=== PATIENT | male | born 1950 | race Caucasian/White ===

== ENCOUNTER 2023-11-26 11:05 | Outpatient (AMB) | payer MEDICARE, OTHER, SELFPAY ==
[2023-11-26 11:12] VITALS: BP 130/80; PULSE 81; O2SAT 98; BMI 35.1
--- NOTE | 2023-11-26 11:12 | HO.NEPHOV_ITS ---
HPI HPI Comments History of Present Illness Details I had the privilege of seeing Juliette in follow-up of her chronic kidney disease stage 3 and hypertension. She has history of colon cancer status post colectomy 20 years ago. She has history of chronic back and pain. She has been taking nonsteroidal anti-inflammatories for the pain. She denies any hematuria, urinary symptoms, nephrolithiasis. She is not known to have any significant proteinuria. She does not have any chest pain, shortness of breath, proximal nocturnal dyspnea, orthopnea or pedal edema. All other systems have been reviewed and were negative. [facility] Medical History (Updated 11/26/23 @ 11:24 by Thai Cadena MD) Sciatic pain Chronic back pain History of colon cancer Hyperlipemia Chronic kidney disease, stage 3a Hypertension Surgical History (Updated 11/26/23 @ 11:10 by Linda Canales MA) History of colectomy Family History (Updated 11/26/23 @ 11:21 by Linda Canales MA) Brother Cancer Father Cancer Social History (Updated 11/26/23 @ 11:20 by Linda Canales MA) Alcohol intake: current Patient Tobacco Use Status: Former Tobacco user Vital Signs 11/26/23 11:12 Height 5 ft 7 in Weight 224 lb 6 oz BMI 35.1 BP 130/80 Blood Pressure Location Lt brachial Position Sitting Pulse 81 Pulse Source Pulse Oximeter Pulse Oximetry (%) 98 Oxygen Delivery Method Room Air Physical Exam Vital Signs: Last Vital Signs Pulse 81 11/26/23 11:12 BP 130/80 11/26/23 11:12 Pulse Ox 98 11/26/23 11:12 Oxygen Delivery Method Room Air 11/26/23 11:12 BMI result Body Mass Index 35.1 Const General: comfortable and no acute distress Orientation/consciousness: patient oriented x3 HEENT Head: Yes normocephalic Mouth: Normal oral and palatal mucosa present Eyes EOM: EOMs intact bilaterally Neck Neck: Yes supple Resp Auscultation: clear to auscultation bilaterally Cardio Jugular venous distension: no JVD Rate: regular rate GI Palpation (GI): Soft to palpation Auscultation: normal bowel sounds General: Yes no CVA tenderness Back/Spine/Pelvis Back: no CVA tenderness Skin General skin exam: no rashes or lesions noted Neuro General: patient oriented x3 and moves all extremities Extrem General: Yes no pedal edema Assessment & Plan Assessment & Plan (1) Hypertension: Code(s): I10 - Essential (primary) hypertension Qualifiers: Hypertension type: primary hypertension Qualified Code(s): I10 - Essential (primary) hypertension (2) CKD (chronic kidney disease) stage 3, GFR 30-59 ml/min: Code(s): N18.30 - Chronic kidney disease, stage 3 unspecified Qualifiers: Chronic kidney disease stage 3 subtype: stage 3a (GFR 45-59) Qualified Code(s): N18.31 - Chronic kidney disease, stage 3a Briseida peck has CKD for some time. Her renal functions have been fairly stable. She had renal ultrasound the past which showed right kidney of 9.5 cm with a normal parenchyma. Her left kidney showed mildly increased cortical echoge nicity with normal thickness. She should maintain good hydration and minimize nonsteroidal anti-inflammatories. Her blood pressure is currently at goal. I did not make any medication changes today. Follow-up blood work ordered. All questions answered. Follow-up appointment given. Orders: Orders Blood Urea Nitrogen 11/26/23 I10 - Essential (primary) hypertension, N18.30 - Chronic kidney disease, stage 3 unspecified Creatinine 11/26/23 I10 - Essential (primary) hypertension, N18.30 - Chronic kidney disease, stage 3 unspecified Electrolytes 11/26/23 I10 - Essential (primary) hypertension, N18.30 - Chronic kidney disease, stage 3 unspecified Protein Creatinine Ratio, Ur 11/26/23 I10 - Essential (primary) hypertension, N18.30 - Chronic kidney disease, stage 3 unspecified Coding Level of Care Code Est Pt Level 3 (56710) Diagnoses Primary hypertension I10 Hypertension type: primary hypertension Stage 3a chronic kidney disease N18.31 Chronic kidney disease stage 3 subtype: stage 3a (GFR 45-59) Results Reviewed Nephrology Results: No Data to Display
== END 2023-11-26 11:48 | disposition home or self-care (01) ==
PROVIDERS: PCP Hospitalist; Visit Provider Internal Medicine Nephrology
DX: I10 Essential (primary) hypertension (principal); N18.31 Chronic kidney disease, stage 3a
CPT/HCPCS: 99213

== ENCOUNTER → 2023-11-26 11:05 | Outpatient (BNVA) | payer MEDICARE, SELFPAY | PROVIDERS: PCP Hospitalist; Visit Provider Internal Medicine Nephrology | DX: I12.9 Hypertensive chronic kidney disease with stage 1 through stage 4 chronic kidney disease, or unspecified chronic kidney disease (principal); N18.31 Chronic kidney disease, stage 3a | CPT/HCPCS: 99212 ==

== ENCOUNTER 2024-05-26 11:34 | Outpatient (AMB) | payer MEDICARE, OTHER, SELFPAY ==
--- NOTE | 2024-05-26 11:49 | HO.NEPHOV ---
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 She has history of colon cancer status post colectomy 20 years ago. She has history of chronic back and pain. She has been taking nonsteroidal anti-inflammatories for the pain. She denies any hematuria, urinary symptoms, nephrolithiasis. She is not known to have any significant proteinuria. She does not have any chest pain, shortness of breath, proximal nocturnal dyspnea, orthopnea or pedal edema. All other systems have been reviewed and were negative. [facility] Medical History (Updated 11/26/23 @ 11:24 by Thai Cadena MD) Sciatic pain Chronic back pain History of colon cancer Hyperlipemia Chronic kidney disease, stage 3a Hypertension Surgical History History of colectomy Family History Brother Cancer Father Cancer Social History Alcohol intake: current Patient Tobacco Use Status: Former Tobacco user Physical Exam Vital Signs: Last Vital Signs Pulse 77 05/26/24 11:51 BP 118/74 05/26/24 11:51 Pulse Ox 98 05/26/24 11:51 Oxygen Delivery Method Room Air 05/26/24 11:51 BMI result Body Mass Index 34.5 Const General: comfortable and no acute distress Orientation/consciousness: patient oriented x3 HEENT Head: Yes normocephalic Mouth: Normal oral and palatal mucosa present Eyes EOM: EOMs intact bilaterally Neck Neck: Yes supple Resp Auscultation: clear to auscultation bilaterally Cardio Jugular venous distension: no JVD Rate: regular rate GI Palpation (GI): Soft to palpation Auscultation: normal bowel sounds General: Yes no CVA tenderness Back/Spine/Pelvis Back: no CVA tenderness Skin General skin exam: no rashes or lesions noted Neuro General: patient oriented x3 and moves all extremities Extrem General: Yes no pedal edema Results Reviewed Nephrology Results: No Data to Display Assessment & Plan Assessment & Plan (1) CKD (chronic kidney disease) stage 3, GFR 30-59 ml/min: Code(s): N18.30 - Chronic kidney disease, stage 3 unspecified Category: Medical Qualifiers: Chronic kidney disease stage 3 subtype: stage 3a (GFR 45-59) Qualified Code(s): N18.31 - Chronic kidney disease, stage 3a (2) Hypertension: Code(s): I10 - Essential (primary) hypertension Category: Medical Qualifiers: Hypertension type: primary hypertension Qualified Code(s): I10 - Essential (primary) hypertension Plan Juliette peck has CKD for some time. Her renal functions have been fairly stable. She had renal ultrasound the past which showed right kidney of 9.5 cm with a normal parenchyma. Her left kidney showed mildly increased cortical echogenicity with normal thickness. She should maintain good hydration and minimize nonsteroidal anti-inflammatories. Her blood pressure is currently at goal with out ACEI. I may restart ACEI with time at a lower dose. I started her on HCTZ 12.5 mg to 25 mg as on a needed basis for ankle swelling. I did not make any other medication changes today. Follow-up blood work ordered. All questions answered. Follow-up appointment given. Orders: Orders Blood Urea Nitrogen Today I10 - Essential (primary) hypertension, N18.31 - Chronic kidney disease, stage 3a Creatinine Today I10 - Essential (primary) hypertension, N18.31 - Chronic kidney disease, stage 3a Electrolytes Today I10 - Essential (primary) hypertension, N18.31 - Chronic kidney disease, stage 3a Medications: New hydrochlorothiazide 25 mg (2 x 12.5 mg) PO DAILY 30 days 60 tabs 1RF Coding Level of Care Code Est Pt Level 4 (12928) Diagnoses Stage 3a chronic kidney disease N18.31 Chronic kidney disease stage 3 subtype: stage 3a (GFR 45-59) Primary hypertension I10 Hypertension type: primary hypertension
[2024-05-26 11:51] VITALS: BP 118/74; PULSE 77; O2SAT 98; BMI 34.5
== END 2024-05-26 12:26 | disposition home or self-care (01) ==
PROVIDERS: PCP Hospitalist; Visit Provider Internal Medicine Nephrology
DX: N18.31 Chronic kidney disease, stage 3a (principal); I10 Essential (primary) hypertension
CPT/HCPCS: 99214

== ENCOUNTER → 2024-05-26 11:34 | Outpatient (BNVA) | payer MEDICARE, SELFPAY | PROVIDERS: PCP Hospitalist; Visit Provider Internal Medicine Nephrology | DX: I12.9 Hypertensive chronic kidney disease with stage 1 through stage 4 chronic kidney disease, or unspecified chronic kidney disease (principal); N18.31 Chronic kidney disease, stage 3a | CPT/HCPCS: 99212 ==

== ENCOUNTER 2024-08-05 10:32 | Outpatient (AMB) | payer MEDICARE, SELFPAY ==
--- NOTE | 2024-08-05 10:35 | A.OFFVIS_ITS ---
Intake Visit Reasons: [employer]- LT knee pain after knee surgery in 2022 Intake Note: Juliette is a 73 year old female who presents with complaints of intermittent pain and ?numbness? in her left knee after undergoing left total knee replacement surgery by Dr. Palomo Storm in [place] on 03/12/2023. She denies any fevers or chills. She has taken gabapentin and meloxicam which gave her only mild relief. She has also undergone bilateral total hip replacement surgery in the past. She denies any significant back pain. Allergies tizanidine Allergy (Verified 08/05/24 10:40) Unknown Medication List - Last Reconciled 08/05/24 by Eduardo Clarke MD cholecalciferol (vitamin D3) 25 mcg PO DAILY gabapentin 300 mg PO TID hydrochlorothiazide 25 mg (2 x 12.5 mg) PO DAILY meloxicam 15 mg PO DAILY rosuvastatin 10 mg PO DAILY [facility] Medical History Sciatic pain Chronic back pain History of colon cancer Hyperlipemia Chronic kidney disease, stage 3a Hypertension Surgical History (Updated 08/05/24 @ 10:44 by Iman Basilio CMA) History of arthroplasty of left knee (03/12/23) History of colectomy Family History Brother Cancer Father Cancer Social History Alcohol intake: current Patient Tobacco Use Status: Former Tobacco user Physical Exam Const Other: Well-nourished well-developed very friendly female awake alert and oriented x3 in no acute distress Extrem Other: Bilateral lower extremity examination shows good capillary refill, no skin lesions noted, normal sensation light touch Left knee examination shows that the surgical incision is well healed, no erythema, full active extension and flexion to 120 degrees, her patella tracks well Results Reviewed Results Reviewed: X-rays of the patient's left knee show a total knee arthroplasty in good position with no signs of loosening, no acute bony abnormalities Assessment & Plan Assessment & Plan (1) Left knee pain: Code(s): M25.562 - Pain in left knee Category: Medical Plan Ms. Campoverde presents with continued discomfort in her left knee after undergoing left total knee replacement surgery by Dr. Storm on 03/12/2023. At this point the patient does not have any signs or symptoms of infection. The patient's symptoms may be due to continued scar tissue and nerve irritation. I will a rrange for the patient to have an evaluation by Dr. Mcginnis in our pain management department here at [facility] to get his opinion regarding her treatment options. I will see her back following that appointment. Feel free to call me at any time should questions regarding her orthopedic management arise. I spent 21 minutes in reviewing the patient's records and imaging studies, seeing the patient and documenting in the medical record. Orders: Orders XR knee LT 3V Today M25.562 - Pain in left knee Referrals Pain Management Referral M25.562 - Pain in left knee Coding Level of Care Code New Pt Level 3 (71243) Complex EM visit Add On G2211 Diagnoses Left knee pain M25.562
== END 2024-08-05 11:08 | disposition home or self-care (01) ==
PROVIDERS: PCP Hospitalist; Visit Provider Orthopaedic Surgery
DX: M25.562 Pain in left knee (principal); Z96.652 Presence of left artificial knee joint
CPT/HCPCS: 99203; G2211

== ENCOUNTER 2024-08-05 13:49 | Outpatient (REF) | payer MEDICARE, SELFPAY | END 2024-08-05 13:50 | disposition home or self-care (01) | LOC: HO.HOSX 13:49 | PROVIDERS: Visit Provider Orthopaedic Surgery | DX: M25.562 Pain in left knee (principal); Z96.652 Presence of left artificial knee joint | CPT/HCPCS: 73562; 99202 ==

== ENCOUNTER 2024-08-25 10:42 | Outpatient (AMB) | payer MEDICARE, SELFPAY ==
--- NOTE | 2024-08-25 10:55 | HO.NEPHOV ---
Vital Signs 08/25/24 10:56 Height 5 ft 7 in Weight 223 lb 8 oz BMI 35.0 BP 132/86 Blood Pressure Location Lt brachial Position Sitting Pulse 85 Pulse Source Pulse Oximeter Pulse Oximetry (%) 98 Oxygen Delivery Method Room Air Intake Visit Reasons: 3 mon follow up-Conf [place] Required: No Accompanied by: Self / Same As Patient Allergies tizanidine Allergy (Verified 08/25/24 10:58) Unknown HPI Comments Details: Juliette was seen in follow-up of her chronic kidney disease stage 3 and hypertension. She has history of colon cancer status post colectomy 20 years ago. She has history of chronic back and pain. She has been taking nonsteroidal anti-inflammatories for the pain. She denies any hematuria, urinary symptoms, nephrolithiasis. She is not known to have any significant proteinuria. She does not have any chest pain, shortness of breath, proximal nocturnal dyspnea, orthopnea or pedal edema. All other systems have been reviewed and were negative [facility] Medical History Sciatic pain Chronic back pain History of colon cancer Hyperlipemia Chronic kidney disease, stage 3a Hypertension Surgical History History of arthroplasty of left knee (03/12/23) History of colectomy Family History Brother Cancer Father Cancer Social History Alcohol intake: current Patient Tobacco Use Status: Former Tobacco user Review of Systems Const All systems reviewed & are unremarkable except as noted in HPI and below Physical Exam Vital Signs: Last Vital Signs Pulse 85 08/25/24 10:56 BP 132/86 08/25/24 10:56 Pulse Ox 98 08/25/24 10:56 Oxygen Delivery Method Room Air 08/25/24 10:56 BMI result Body Mass Index 35.0 Const General: comfortable and no acute distress Orientation/consciousness: patient oriented x3 HEENT Head: Yes normocephalic Mouth: Normal oral and palatal mucosa present Eyes EOM: EOMs intact bilaterally Neck Neck: Yes supple Resp Auscultation: clear to auscultation bilaterally Cardio Jugular venous distension: no JVD Rate: regular rate GI Palpation (GI): Soft to palpation Auscultation: normal bowel sounds General: Yes no CVA tenderness Back/Spine/Pelvis Back: no CVA tenderness Skin General skin exam: no rashes or lesions noted Neuro General: patient oriented x3 and moves all extremities Extrem General: Yes no pedal edema Results Reviewed Nephrology Results: No Data to Display Assessment & Plan Assessment & Plan (1) CKD (chronic kidney disease) stage 3, GFR 30-59 ml/min: Code(s): N18.30 - Chronic kidney disease, stage 3 unspecified Category: Medical Qualifiers: Chronic kidney disease stage 3 subtype: stage 3a (GFR 45-59) Qualified Code(s): N18.31 - Chronic kidney disease, stage 3a (2) Hypertension: Code(s): I10 - Essential (primary) hypertension Category: Medical Qualifiers: Hypertension type: primary hypertension Qualified Code(s): I10 - Essential (primary) hypertension Plan Juliette peck has CKD for some time. Her renal functions have been fairly stable. She had renal ultrasound the past which showed right kidney of 9.5 cm with a normal parenchyma. Her left kidney showed mildly increased cortical echogenicity with normal thickness. She should maintain good hydration and minimize nonsteroidal anti-inflammatories. Her blood pressure is currently at goal with out ACEI. I may restart ACEI with time at a lower dose. She can continue HCTZ 12.5 mg to 25 mg as on a needed basis for ankle swelling. I did not make any other medication changes today. Follow-up blood work ordered. All questions answered. Follow-up appointment given. Orders: Orders Creatinine 6 Months I10 - Essential (primary) hypertension, N18.31 - Chronic kidney disease, stage 3a Blood Urea Nitrogen 6 Months I10 - Essential (primary) hypertension, N18.31 - Chronic kidney disease, stage 3a Electrolytes 6 Months I10 - Essential (primary) hypertension, N18.31 - Chronic kidney disease, stage 3a Coding Level of Care Code Est Pt Level 4 (10604) Diagnoses Stage 3a chronic kidney disease N18.31 Chronic kidney disease stage 3 subtype: stage 3a (GFR 45-59) Primary hypertension I10 Hypertension type: primary hypertension
[2024-08-25 10:56] VITALS: BP 132/86; PULSE 85; O2SAT 98; BMI 35.0
== END 2024-08-25 11:32 | disposition home or self-care (01) ==
LOC: HO.HKAS 10:42
PROVIDERS: PCP Hospitalist; Visit Provider Internal Medicine Nephrology
DX: N18.31 Chronic kidney disease, stage 3a (principal); I10 Essential (primary) hypertension
CPT/HCPCS: 99214

== ENCOUNTER → 2024-08-25 10:42 | Outpatient (BNVA) | payer MEDICARE, SELFPAY | PROVIDERS: PCP Hospitalist; Visit Provider Internal Medicine Nephrology | DX: I12.9 Hypertensive chronic kidney disease with stage 1 through stage 4 chronic kidney disease, or unspecified chronic kidney disease (principal); N18.31 Chronic kidney disease, stage 3a | CPT/HCPCS: 99212 ==

== ENCOUNTER 2024-09-02 10:17 | Outpatient (AMB) | payer MEDICARE, SELFPAY ==
--- NOTE | 2024-09-02 10:28 | MHC.OFFVIS ---
Vital Signs 09/02/24 10:29 Height 5 ft 7 in Weight 236 lb BMI 37.0 BP 166/78 H Blood Pressure Location Lt brachial Position Sitting Respiration 16 Pulse 83 Pulse Source Pulse Oximeter Pulse Oximetry (%) 98 Oxygen Delivery Method Room Air Intake Visit Reasons: Pain in left knee Allergies tizanidine Allergy (Verified 09/02/24 10:31) Unknown Medication List - Last Reconciled 09/02/24 by Audrey Dick LPN cholecalciferol (vitamin D3) 25 mcg PO DAILY gabapentin 300 mg PO TID hydrochlorothiazide 25 mg (2 x 12.5 mg) PO DAILY meloxicam 15 mg PO DAILY rosuvastatin 10 mg PO DAILY HPI HPI Pain in left knee: Details: 73-year-old female who presents to the office today for evaluation of left knee pain. Patient reports intermittent pain, burning sensation, and numbness in the left knee which has been going on since her left ankle surgery. She also used to have swelling around that knee, but that has decreased over time. At this time, her pain is mostly present with movements and does not happen when she is resting. She reports she was feeling fine for 2 weeks following the surgery and she felt a strong snap in the knee. She has had multiple x-rays since then. She takes gabapentin and meloxicam with mild relief. She underwent bilateral total hip replacement surgery in the past. She was referred here to discuss treatment options. She reports her neighbor underwent RFA and she was in a lot of pain. Patient does not wish to proceed with that. [facility] Medical History (Updated 09/15/24 @ 14:57 by Sameer Mcginnis MD) Sciatic pain Chronic back pain History of colon cancer Hyperlipemia Chronic kidney disease, stage 3a Hypertension Surgical History History of arthroplasty of left knee (03/12/23) History of colectomy Family History Brother Cancer Father Cancer Social History Alcohol intake: current Patient Tobacco Use Status: Former Tobacco user Review of Systems Const All systems reviewed & are unremarkable except as noted in HPI and below Physical Exam Vital Signs: Last Vital Signs Pulse 83 09/02/24 10:29 Resp 16 09/02/24 10:29 BP 166/78 H 09/02/24 10:29 Pulse Ox 98 09/02/24 10:29 Oxygen Delivery Method Room Air 09/02/24 10:29 BMI result Body Mass Index 37.0 General: Appears afebrile. Alert and oriented. Mood and affect appropriate. Follows and participates in conversation appropriately. Respiratory effort is unlabored. Able to transition from sit to stand unassisted. Ambulates with bilaterally normal heel strike and toe off. There is a midline well-healed scar on the left knee. There is a pain and tenderness overlying and around the patella region and the medial region. Results Reviewed Results Reviewed: No imaging is available for review. 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 There appears to be some combination of CRPS related symptoms including burning, swelling, sensitivity, and numbness. So we can consider a lumbar sympathetic block in the future if PNS is not helpful. We also discussed the usual response to temporary PNS and alternatives, including an implantable PNS in the future if temporary PNS is not helpful. Will schedule her for a left saphenous temporary nerve stimulator placement with Sprint PNS device. Discussed the risks and benefits of the procedure with the patient in detail. All questions were answered. The patient is on board with the plan. Justification for interventional therapy: ? Patient with average pain > 6/10 after total knee replacement surgery. ? Patient has exhausted therapeutic medications. ? Patient unable to tolerate physical therapy due to pain. . Patient has a good understanding of their pain condition and has appropriate mental and social support Scribed for Dr. Mcginnis by Ivette medical records auditor, on 09/02/2024. I, Dr. Mcginnis, have personally reviewed and agree with the information entered by the scribe. 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
[2024-09-02 10:29] VITALS: BP 166/78; PULSE 83; RESP 16; O2SAT 98; BMI 37.0
== END 2024-09-02 10:49 | disposition home or self-care (01) ==
LOC: HO.PMC 10:17
PROVIDERS: PCP Hospitalist; Visit Provider Internal Medicine
DX: M25.569 Pain in unspecified knee (principal); G89.29 Other chronic pain; Z96.659 Presence of unspecified artificial knee joint
CPT/HCPCS: 99204

== ENCOUNTER → 2024-09-02 10:17 | Outpatient (BNVA) | payer MEDICARE, SELFPAY | PROVIDERS: PCP Hospitalist; Visit Provider Internal Medicine | DX: M25.562 Pain in left knee (principal); R20.0 Anesthesia of skin; G89.29 Other chronic pain; Z96.652 Presence of left artificial knee joint | CPT/HCPCS: 99202 ==

== ENCOUNTER 2024-09-17 08:04 | Outpatient (REF) | payer MEDICARE, SELFPAY | END 2024-09-17 08:05 | disposition home or self-care (01) | LOC: CF 08:04 | PROVIDERS: Visit Provider Internal Medicine | DX: T84.84XA Pain due to internal orthopedic prosthetic devices, implants and grafts, initial encounter (principal); G89.29 Other chronic pain; Z96.652 Presence of left artificial knee joint | CPT/HCPCS: 64555; C1778; J2003 ==

== ENCOUNTER 2024-09-17 10:53 | Outpatient (AMB) | payer MEDICARE, SELFPAY ==
[2024-09-17 11:41] VITALS: BP 148/92; PULSE 94; O2SAT 98
--- NOTE | 2024-09-17 11:41 | MHC.OFFVIS ---
Vital Signs 09/17/24 11:41 09/17/24 12:43 BP 148/92 H 140/84 H Blood Pressure Location Lt brachial Lt brachial Position Sitting Sitting Pulse 94 80 Pulse Source Pulse Oximeter Pulse Oximeter Pulse Oximetry (%) 98 98 Oxygen Delivery Method Room Air Room Air Intake Visit Reasons: Left saphenous Sprint Allergies tizanidine Allergy (Verified 09/02/24 10:31) Unknown HPI HPI Left saphenous Sprint: Details: Patient presents for scheduled procedure. Denies any recent cough, cold, infection, fever or other significant changes in medical history since last office visit. [facility] Medical History (Updated 09/15/24 @ 14:57 by Sameer Mcginnis MD) Sciatic pain Chronic back pain History of colon cancer Hyperlipemia Chronic kidney disease, stage 3a Hypertension Surgical History History of arthroplasty of left knee (03/12/23) History of colectomy Family History Brother Cancer Father Cancer Social History Alcohol intake: current Patient Tobacco Use Status: Former Tobacco user Physical Exam Vital Signs: Last Vital Signs Pulse 80 09/17/24 12:43 BP 140/84 H 09/17/24 12:43 Pulse Ox 98 09/17/24 12:43 Oxygen Delivery Method Room Air 09/17/24 12:43 Office Procedures Details: Peripheral Nerve Stimulation Temporary Lead Placement, Ultrasound-Guided, Saphenous Nerve, Left ? After the risks, benefits and alternatives were discussed with the patient and informed consentwas obtained, patient was placed in the supine position and padded to foster comfort. Appropriate skin and bony landmarks were identified, and pertinent vascular structures were located. The skin overlying the needle entry site was prepped and draped in sterile fashion. Ultrasound was used to identify the femoral artery, the femoral vein and the saphenous nerve. After identifying and marking the intended target along the course of the saphenous nerve, the skin around the planned entry point and the subcutaneous tissues were injected with local anesthetic. An introducer needle and stimulating probe were assembled, inserted and advanced along the intended course of the saphenous; nerve, taking care to maintain the proper depth of insertion as the introducer was advanced under ultrasound guidance. The introducer needle was delivered to a location in proximity to the nerve taking care not to puncture the femoral artery or the vein. Multiple stimulation parameters were used to deliver stimulation to the saphenous nerve in concert with stimulating at multiple positions around the nerve. Nerve target acquisition was confirmed noting generation of sensory and mild motor effects (paresthesia, muscle tension, etc) in the medial knee, leg and ankle; corresponding to the distribution of the saphenous nerve. Various electrical parameter combinations were tested, and the lead location was adjusted (physically relocated under ultrasound guidance) until the patient indicated medial knee paresthesia and tension overlapping the distribution of the patient?s typical region of pain. The stimulating probe was removed from the introducer and a percutaneous lead was guided through the needle and delivered to a location in similar proximity to the nerve. Final location was verified with electrical stimulation and documented. The introducer needle was removed, and the exposed end of the percutaneous lead was attached to an external stimulator unit. Various electrical parameter combinations were again tested until the patient indicated paresthesia and muscle tension overlapping the distribution of the patient?s typical region of pain. After confirming that lead impedance was in the normal range, the external unit was detached, the needle was removed, and the lead was anchored at the skin. The lead was threaded into the connector block and electrical continuity and desired patient response was confirmed. The connector block was attached to the external stimulator unit. The site was covered with a sterile occlusive dressing. A final ultrasound image was taken to document final placement. The patient was observed for stability of vital signs and comfort. Sprint PNS Device: Sprint PNS Device [id number] Percutaneous Peripheral Neuroelectrode Procedure: 20433 - Percutaneous Peripheral Neuroelectrode Procedure code (CPT) selection complete Office Meds lidocaine HCl 10 mg/mL (1 %) injection solution Performing Provider: Libby Hernandez APRN, METAL PRECISION MACHINE ASSEMBLER Performing Location: [facility] Administered by: Audrey Dick LPN on 09/17/24 12:23 Dose Route Admin Location Dispensed Lot Number Expiration Date [facility] Blade Balancer 5 mL subcut 5 mL Assessment & Plan Assessment & Plan (1) 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 Patient tolerated procedure well and was discharged home in stable condition with discharge instructions. All questions were answered. We will follow-up via telephone or in clinic to assess response to therapy. A follow-up appointment was made during today's visit. 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 09/17/24 12/31/25
[2024-09-17 12:43] VITALS: BP 140/84; PULSE 80; O2SAT 98
== END 2024-09-17 12:46 | disposition home or self-care (01) ==
LOC: HO.PMCPRC 10:53
PROVIDERS: PCP Hospitalist; Visit Provider Internal Medicine
DX: M25.562 Pain in left knee (principal)
CPT/HCPCS: 64555

== ENCOUNTER 2024-09-23 09:37 | Outpatient (AMB) | payer MEDICARE, SELFPAY ==
[2024-09-23 09:44] VITALS: BP 146/83; PULSE 93; O2SAT 97
--- NOTE | 2024-09-23 09:44 | A.OFFVIS_ITS ---
Vital Signs 09/23/24 09:44 BP 146/83 H Blood Pressure Location Lt brachial Position Sitting Pulse 93 Pulse Source Pulse Oximeter Pulse Oximetry (%) 97 Oxygen Delivery Method Room Air Intake Visit Reasons: s/p left saphenous Sprint Allergies tizanidine Allergy (Verified 09/02/24 10:31) Unknown HPI HPI s/p left saphenous Sprint: Details: 74-year-old female who presents to the office today for status post temporary left saphenous nerve stimulator placement. The patient reports >60% initial relief following the procedure. She reports significant improvement in the left knee pain with the device. She reports feeling ?grabbing sensation? that radiates down to the calf area which is not bothersome. She did not change the dressings and would like to have it done today. Past Procedures 09/17/24: Peripheral Nerve Stimulation Temporary Lead Placement, Ultrasound- Guided, Saphenous Nerve, Left: >60% initial relief. [facility] Medical History (Updated 09/15/24 @ 14:57 by Sameer Mcginnis MD) Sciatic pain Chronic back pain History of colon cancer Hyperlipemia Chronic kidney disease, stage 3a Hypertension Surgical History History of arthroplasty of left knee (03/12/23) History of colectomy Family History Brother Cancer Father Cancer Social History Alcohol intake: current Patient Tobacco Use Status: Former Tobacco user Review of Systems Const All systems reviewed & are unremarkable except as noted in HPI and below Physical Exam Vital Signs: Last Vital Signs Pulse 93 09/23/24 09:44 BP 146/83 H 09/23/24 09:44 Pulse Ox 97 09/23/24 09:44 Oxygen Delivery Method Room Air 09/23/24 09:44 General: Appears afebrile. Alert and oriented. Mood and affect appropriate. Follows and participates in conversation appropriately. Respiratory effort is unlabored. Able to transition from sit to stand unassisted. Ambulates with bilaterally normal heel strike and toe off. Lead insertion site was clean, dry, and intact. The dressing was changed in the office today. Results Reviewed Results Reviewed: No imaging is available for review. 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 The dressing was changed in the office today. Lead insertion site was clean, dry, and intact. The patient will continue to use the device. She will follow up in seven weeks (November 11, 2024) for removal of the device. Scribed for Dr. Mcginnis by Ivette medical coder, on 09/23/2024. I, Dr. Mcginnis, have personally reviewed and agree with the information entered by the scribe. 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
== END 2024-09-23 09:52 | disposition home or self-care (01) ==
PROVIDERS: PCP Hospitalist; Visit Provider Internal Medicine
DX: M25.562 Pain in left knee (principal); M25.569 Pain in unspecified knee; G89.29 Other chronic pain; Z96.659 Presence of unspecified artificial knee joint
CPT/HCPCS: 99024

== ENCOUNTER → 2024-09-23 09:37 | Outpatient (BNVA) | payer MEDICARE, SELFPAY | PROVIDERS: PCP Hospitalist; Visit Provider Internal Medicine | DX: M25.562 Pain in left knee (principal); M25.569 Pain in unspecified knee; G89.29 Other chronic pain; Z96.659 Presence of unspecified artificial knee joint | CPT/HCPCS: 99212 ==

== ENCOUNTER 2024-10-07 11:26 | Outpatient (AMB) | payer MEDICARE, SELFPAY ==
--- NOTE | 2024-10-07 11:29 | A.OFFVIS_ITS ---
Vital Signs 10/07/24 11:30 Height 5 ft 7 in Weight 236 lb BMI 37.0 Intake Visit Reasons: Left knee discomfort Intake Note: Juliette is a 74 year old female who presents with for evaluation of her left knee after undergoing left total knee replacement surgery by Dr. Palomo Storm in [place] on 03/12/2023. Patient has been going to Dr. Mcginnis in pain management, Left saphenous Sprint PNS performed 09/17/24. She reports mild intermittent discomfort in her left knee. She also reports intermittent ?numbness? along the lateral aspect of her incision as well as ?stiffness? in her left thigh. Allergies tizanidine Allergy (Verified 10/07/24 11:29) Unknown Medication List - Last Reconciled 10/07/24 by Eduardo Clarke MD cholecalciferol (vitamin D3) 25 mcg PO DAILY gabapentin 300 mg PO TID hydrochlorothiazide 25 mg (2 x 12.5 mg) PO DAILY meloxicam 15 mg PO DAILY rosuvastatin 10 mg PO DAILY [facility] Medical History (Updated 09/15/24 @ 14:57 by Sameer Mcginnis MD) Sciatic pain Chronic back pain History of colon cancer Hyperlipemia Chronic kidney disease, stage 3a Hypertension Surgical History History of arthroplasty of left knee (03/12/23) History of colectomy Family History Brother Cancer Father Cancer Social History Alcohol intake: current Patient Tobacco Use Status: Former Tobacco user Physical Exam Vital Signs: BMI result Body Mass Index 37.0 Const Other: Well-nourished well-developed very friendly female awake alert and oriented x3 in no acute distress Extrem Other: Bilateral lower extremity examination shows good capillary refill, no skin lesions noted, normal sensation light touch Left knee examination shows that the surgical incision is well healed, no erythema, full active extension and flexion to 115 degrees, her patella tracks well, no instability Assessment & Plan Assessment & Plan (1) Left knee pain: Code(s): M25.562 - Pain in left knee Category: Medical Plan Ms. Campoverde continues to do fairly well after undergoing left total knee replacement surgery by Dr. Storm. She does have intermittent discomfort most likely due to scar tissue formation. She will continue with her home exercise program. She does know to take antibiotics before any dental work. She will contact me prior to her annual follow-up appointment should her symptoms worsen in any way. Feel free to call me at any time should questions regarding her orthopedic management arise. I spent 21 minutes in reviewing the patient's records and imaging studies, seeing the patient and documenting in the medical record. Coding Level of Care Code Est Pt Level 3 (90018) Complex EM visit Add On G2211 Diagnoses Left knee pain M25.562
[2024-10-07 11:30] VITALS: BMI 37.0
--- OUTSIDE RECORDS SUMMARY | 2024-10-08 01:37 | XMS_ITS ---
Author Organization [facility] Address [address] [place] [address] Care Team Providers Care Broke Beater Operator Name Role Phone LAZ AKBAR Primary Care Provider Lee Johnson Unavailable [phone] Allergies Allergen (clinical drug ingredient) Drug/Non Drug Allergy documented on EMR Reaction Allergy Type Onset Date Status atorvastatin Atorvastatin Calcium Unknown Drug Allergy Active tizanidine tiZANidine HCl Unknown Drug Allergy A ctive REASON FOR VISIT 2 wks f/u BP Medications Medication SIG (Take, Route, Frequency, Duration) Notes Start Date End Date Status traMADol HCl 50 MG TAKE 1 TABLET BY MOUTH 2 TIMES DAILY NEEDED FOR PAIN Orally two times per day for 28 days 05/01/2023 Not-Taking Lisinopril-hydroCHLOROthia zide 10-12.5 MG TAKE 1 TABLET BY MOUTH EVERY DAY for 90 Not-Taking Rosuvastatin Calcium 10 MG 1 tablet Oral ly Once a day for 90 days Active Gabapentin 300 MG TAKE 1 CAPSULE BY MOUTH THREE TIMES DAILY EVERY DAY for 90 Active Meloxicam 1-1/2 tablet daily (given by Dr. Saunders) Active hydrOXYzine HCl 10 MG TAKE 1 TABLET BY MOUTH AT BEDTIME DIRECTED for 30 Active hydroCHLOROthiazide 12.5 MG 1 capsule in the morning Orally Once a day Active Vital Signs Temperature 97.6 degrees Fahrenheit 10/01/20 24 Oximetry 94 % 10/01/2024 Heart Rate 104 /min 10/01/2024 Blood pressure systolic 130 mm Hg 10/01/20 24 Blood pressure diastolic 84 mm Hg 024 Weight 222.7 lbs 10/01/2024 BMI 35.16 kg/m2 10/01/2024 Height 66.73 in 10/01/2024 Encounters Encounter Location Date Provider Diagnosis [facility] [address] [address] 10/01/2024 Lee Johnson Essential (primary) hypertension I10 Assessments Encounter Date Diagnosis (ICD Code) Assessment Notes Treatment Notes Treatment Clinical Notes Section Notes 10/01/2024 Essential (primary) hypertension (ICD-10 - I10) Ms. Campoverde is a 74 year old lady with hypertension, hyperlipidemia, osteoarthritis and follows up with Dr. Storm at [facility] for cortisone injections, neuropathy and sees Dr. Saunders for neuropathy and CKD here for Bp check. Plan is as follows: Hypertension. - Blood pressure is well controlled. Continue on the same regimen. Advised on reducing salt intake. Increase hydration and continue on exercising. I have rendered the services for this patient under direct supervision of Dr. Akbar, who did not see the patient but was available upon request Plan Of Treatment Next Appt Details Follow Up: 6 Months-f/up, Re ason: Provider Name:Lee marshall, 04/01/2025 11:00:00 AM, [address] [place] [address], [place], [address], Progress Notes * Rand CAMPOVERDERodrigue:1950 ( 74 yo F)Acc No.[id number]:10/01/2024 Progress Notes Patient:Juliette ROPER Provider:?Lee Johnson :1950???Age:74 Y???Sex:Female D ate:10/01/2024 Address:[address] [place], [place] [id number] Pcp:LAZ AKBAR Subjective: * Chief Complaints: * ???2 wks f/u BP * HPI: ???Internal Medicine:?Ms. Campoverde is a 74 year old lady with hypertension, hyperlipidemia, osteoarthritis and follows up with Dr. Storm at [facility] for cortisone injections, neuropathy and sees Dr. Saunders for neuropathy and CKD here for Blood pressure check.? Patient was on lisinopril hydrochlorothiazide but the combination has been discontinued as patient has been experiencing worsening renal function.? Medication has been discontinued by Dr. Cadena/striker off.? During previous visit blood pressure was elevated patient was restarted on hydrochlorothiazide to be taking daily.? Blood pressure is running within normal limits today.? She denies any chest pain, SOB, [place].? She denies any other active issues. * ROS:?General/Constitutional:?Overall health?Good.?Change in appetite?denies.?Chills?denies.?Fever?denies.?Night sweats?denies.?Sleep disturbance?denies.?Weight gain?denies.?Weight loss?denies.?Neurologic:?Difficulty speaking?denies.?Dizziness?denies.?Gait abnormality?denies.?Headache?denies.?Loss of strength?denies.?Memory loss?denies.?Seizures?denies.?Tingling/Numbness?denies .?Ophthalmologic:?Blurred vision?denies.?Discharge?denies.?Dry eye?denies.?Red eye?denies.?ENT:?Change in Voice?Denies.?Cold Symptoms?Denies.?Cough?Denies.?Dizziness?Denies.?Nasal Congestion?Denies.?Otalgia?Denies.?postnasal drip?Denies.?Blocked ear?denies.?Nosebleed?denies.?Snoring?denies.?Cardiovascular:?Diaphoresis?Denies.?Pedal Edema?Denies.?PND (Paroxsymal nocturnal dyspnea)?Denies.?Chest pain?denies.?Difficulty laying flat?denies.?Dyspnea on exertion?denies.?Heart murmur?denies.?Orthopnea?denies.?Respiratory:?Snoring?denies.?Asthma?denies.?Cough?denies.?Shortness of breath with exertion?denies.?Sputum production?denies.?Wheezing?denies.?Gastrointestinal:?Change in bowel habits?denies.?Constipation?denies.?Decreased appetite?denies.?Diarrhea?denies.?Heartburn?denies.?Nausea?denies.?Vomiting?lanie es.?Musculoskeletal:?tingling/numbness?Denies.?myalgias?Denies.?Joint Swelling?Denies.?extremeties?normal.?Arthritis?denies.?Back problems?denies.?Carpal tunnel?denies.?Joint stiffness?denies.?Muscle aches?denies.?Endocrine:?Bowel Changes?Denies.?Breast Discharge?Denies.?poor libido?Denies.?Cold intolerance?denies.?Excessive sweating?denies.?Excessive thirst?denies.?Frequent urination?denies.?Thyroid problems?denies.?Skin:?Bruising?Denies.?Eczema?denies.?Hair changes?denies.?Rash?denies.?Skin lesion(s)?denies.?Psychiatric:?Anxiety?denies.?Depressed mood?denies.?Difficulty sleeping?denies.?Nervous breakdown?denies.?Substance abuse?denies.?Urology:?abnormal menstrual bleeding?denies.?blood in urine?denies.?burning on urination?denies.?difficulty urinating?denies.?discharge?denies.?dysuria?denies.? * Medical History:? * Surgical History:? * Hospitalization/Major Diagno stic Procedure:? * Medications:?TakinghydroCHLO ROthiazide 12.5 MG Capsule 1 capsule in the morning Orally Once a day hydrOXYzine HCl 10 MG Tablet TAKE 1 TABLET BY MOUTH AT BEDTIME DIRECTED Meloxicam , Notes to Pharmacist: 1-1/2 tablet daily (given by Dr. Saunders)Gabapentin 300 MG Capsule TAKE 1 CAPSULE BY MOUTH THREE TIMES DAILY EVERY DAY Rosuvastatin Calcium 10 MG Tablet 1 tablet Orally Once a day Taking hydroCHLOROthiazide 12.5 MG Capsule 1 capsule in the morning Orally Once a day Taking hydrOXYzine HCl 10 MG Tablet TAKE 1 TABLET BY MOUTH AT BEDTIME DIRECTED Taking Meloxicam , Notes to Pharmacist: 1-1/2 tablet daily (given by Dr. Saunders)Taking Gabapentin 300 MG Capsule TAKE 1 CAPSULE BY MOUTH THREE TIMES DAILY EVERY DAY Taking Rosuvastatin Calcium 10 MG Tablet 1 tablet Orally Once a day Vrj-XynvbcRgrnueglac-arlwgEPBZNOrfsseqbc 10-12.5 MG Tablet TAKE 1 TABLET BY MOUTH EVERY DAY traMADol HCl 50 MG Tablet TAKE 1 TABLET BY MOUTH 2 TIMES DAILY NEEDED FOR PAIN Orally two times per day Medication List reviewed and reconciled with the patientNot-Taking Lisinopril-hydroCHLOROthiazide 10-12.5 MG Tablet TAKE 1 TABLET BY MOUTH EVERY DAY Not-Taking traMADol HCl 50 MG Tablet TAKE 1 TABLET BY MOUTH 2 TIMES DAILY NEEDED FOR PAIN Orally two times per day Medication List reviewed and reconciled with the patient * Allergies:?Atorvastatin Calc ium: Side EffectstiZANidine HCl: Allergyno[Allergies Verified] Objective: * Vitals:?Temp: 97.6 F, Oxygen sat %: 94 %, HR: 104 /min, BP: 142/78 mm Hg, 130/84 mm Hg, Wt: 222.7 lbs, BMI: 35.16 Index, Ht: 66.73 in. * Examination: ???General Examination: ?Psychiatry?Normal.?GENERAL APPEARANCE:?Well developed, well nourished, in no acute distress.?MUSCULOSKELETAL:?Normal.?HEAD:?Normocephalic, atraumatic.?EYES:?Pupils equal, round, reactive to light and accommodation, sclera non-icteric.?EARS:?Normal.?ORAL CAVITY:?Normal.?THROAT:?Clear.?OROPHARYNX?Normal.?SINUSES?Normal.?NECK/THYROID:?Neck supple, full range of motion, no cervical lymphadenopathy.?SKIN:?Warm and dry, no suspicious lesions.?HEART:?Normal.?LUNGS:?Normal.?BREASTS:?__.?ABDOMEN:?Soft, nontender, nondistended, bowel sounds present, normal.?EXTREMITIES:?Reticular veins, bilateral LE.?PERIPHERAL PULSES:?Normal.?NEUROLOGIC:?alert and oriented. No loss of sensations. Reflexes are symmetrical.?FEMALE GENITOURINARY:?__.?MALE GENITOURINARY:?__.?PODIATRIC:?Normal.?Field Assessor? .? Assessment: * Assessment: 1.?Essential (primary) hyper tension - I10 (Primary)??? Ms. Campoverde is a 74 year old la dy with hypertension, hyperlipidemia, osteoarthritis and follows up with Dr. Storm at [facility] for cortisone injections, neuropathy and sees Dr. Saunders for neuropathy and CKD here for Bp check. Plan is as follows: Hypertension. - Blood pressure is well controlled. Continue on the same regimen. Advised on reducing salt intake. Increase hydration and continue on exercising. ??I have rendered the services for this patient under direct supervision of Dr. Akbar, who did not see the patient but was available upon request Plan: * Treatment: * Procedure Codes:? * Follow Up:?6 Months-f/up * * Sign off status: Completed true * Provider:?Lee Johnson Date:?10/01/20 24 Generated for John mercado/Saira/Dorinda on:?10/08/2024 01:37 AM EST History and Physical Notes * HPI (History of Present Illness) Category Sub-Category Detail Notes Category Not es Internal Medicine Ms. Campoverde i s a 74 year old lady with hypertension, hyperlipidemia, osteoarthritis and follows up with Dr. Storm at [facility] for cortisone injections, neuropathy and sees Dr. Saunders for neuropathy and CKD here for Blood pressure check. Patient was on lisinopril hydrochlorothiazide but the combination has been discontinued as patient has been experiencing worsening renal function. Medication has been discontinued by Dr. Cadena/striker off. During previous visit blood pressure was elevated patient was restarted on hydrochlorothiazide to be taking daily. Blood pressure is running within normal limits today. She denies any chest pain, SOB, [place]. She denies any other active issues. Examination Category Sub-Category Detail Notes Category Not es General Examination GENERAL APPEARANCE: Well dev eloped, well nourished, in no acute distress HEAD: Normocephalic, atrau matic EYES: Pupils equal, round, reactive to light and accommodation, sclera non-icteric EARS: Normal THROAT: Clear NECK/THYROID: Neck supple, full ra nge of motion, no cervical lymphadenopathy HEART: Normal LUNGS: Normal ABDOMEN: Soft, nontender, non distended, bowel sounds present, normal NEUROLOGIC: alert and oriented. No loss of sensations. Reflexes are symmetrical SKIN: Warm and dry, no jonatan picious lesions EXTREMITIES: Reticular veins, eulalia ateral LE PERIPHERAL PULSES: Normal BREASTS: __ MUSCULOSKELETAL: Normal MALE GENITOURINARY: __ FEMALE GENITOURINARY: __ ORAL CAVITY: Normal PODIATRIC: Normal Psychiatry Normal OROPHARYNX Normal SINUSES Normal Field Assessor
--- OUTSIDE RECORDS SUMMARY | 2024-10-08 01:37 | XMS_ITS ---
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 Name Role Phone LAZ AKBAR Primary Care Provider Allergies Allergen (clinical drug ingredient) Drug/Non Drug Allergy documented on EMR Reaction Allergy Type Onset Date Status atorvastatin Atorvastatin Calcium Unknown Drug Allergy Active tizanidine tiZANidine HCl Unknown Drug Allergy A ctive REASON FOR VISIT AWV Medications Medication SIG (Take, Route, Frequency, Duration) Notes Start Date End Date Status Gabapentin 300 MG TAKE 1 CAPSULE BY MOUTH THREE TIMES DAILY EVERY DAY for 90 Active Rosuvastatin Calcium 10 MG 1 tablet Oral ly Once a day for 90 days Active Meloxicam 1-1/2 tablet daily (given by Dr. Saunders) Active traMADol HCl 50 MG TAKE 1 TABLET BY MOUTH 2 TIMES DAILY NEEDED FOR PAIN Orally two times per day for 28 days 05/01/2023 Not-Taking Lisinopril-hydroCHLOROthia zide 10-12.5 MG TAKE 1 TABLET BY MOUTH EVERY DAY for 90 Not-Taking hydrOXYzine HCl 10 MG TAKE 1 TABLET BY MOUTH AT BEDTIME DIRECTED for 30 Active hydroCHLOROthiazide 12.5 MG 1 capsule in the morning Orally Once a day Active Social History Tobacco Use: Social History Observation Description Date Details (start date - stop date) Current Smoker NA - NA Tobacco Use/Smoking Question Answer Notes Are you a current smoker How often do you smoke cigarettes? every day Alcohol Screen (Audit-C) Question Answer Notes Did you have a drink containing alcohol in the p ast year? No Points 0 Interpretation Negative Vital Signs Temperature 96.8 degrees Fahrenheit 09/09/20 24 Oximetry 99 % 09/09/2024 Heart Rate 78 /min 09/09/2024 Blood pressure systolic 145 mm Hg 09/09/20 24 Blood pressure diastolic 90 mm Hg 024 Weight 222.7 lbs 09/09/2024 BMI 35.16 kg/m2 09/09/2024 Height 66.73 in 09/09/2024 Encounters Encounter Location Date Provider Diagnosis [facility] [address] [place] [address] 09/09/2024 LAZ AKBAR Encounter for genera l adult medical examination without abnormal findings Z00.00 ; Essential (primary) hypertension I10 ; Hyperlipidemia, unspecified E78.5 ; Chronic kidney disease, stage 3b N18.32 and Hyperglycemia, unspecified R73.9 Assessments Encounter Date Diagnosis (ICD Code) Assessment Notes Treatment Notes Treatment Clinical Notes Section Notes 09/09/2024 Encounter for general adult medical examination without abnormal findings (ICD-10 - Z00.00) Ms. Campoverde is a 74 year old lady with hypertension, hyperlipidemia, osteoarthritis and follows up with Dr. Storm at [facility] for cortisone injections, neuropathy and sees Dr. Saunders for neuropathy and CKD here for Medicare annual wellness visit. Plan is as follows: Hypertension. Her blood pressure is running high in the office today. Cut back on sodium intake. Advised appropriate hydration, cardio exercises and weight loss. Lisinopril-HCTZ 10-12.5 MG was stopped [address] Dr. Cadena because of worsening renal function and she was told to take HCTZ 12.5 mg if she notices weight gain. Advised to take HCTZ 12.5 mg and follow-up in 2 weeks and if blood pressure is running high we will add calcium channel segundo. Advised appropriate hydration. Discussed Med[employer] program and she is not interested at this point. EKG is normal sinus rhythm at 75 bpm with no acute ST or T wave changes, no bundle-branch blocks, normal intervals Hyperlipidemia. Total cholesterol 212. LDL 111.She has been noncompliant and was advised to Continue Rosuvastatin 10 MG daily and check lipid panel in 4-6 weeks Chronic kidney disease stage 3b. She does not appear to be in volume overload. Advised appropriate hydration. Avoid NSAIDs but she takes meloxicam as needed. We recommended that she should try Tylenol arthritis. She has some tramadol at home which she can take intermittently. Hyperglycemia. Fasting sugars 102. Dietary restrictions, regimental exercise and weight loss advised. Osteoarthritis multiple joints. She is currently going to physiatry for intra-articular injections. She is not taking tramadol at this point Nicotine dependence. She is still currently smoking and cessation advised. She uses nicotine patches. Declines lung cancer screening. Eye screening. She sees her double surface operator regularly. Dental screening. She sees dentist regularly. Osteoporosis screening. She is up to date on BMD. Immunizations. She completed her shingles vaccine. Declines other vaccinations. Advance directive. She is on full code and her HCP is her daughter Ericka. MOLST form given and discussed with the patient. Blood work reviewed with patient and questions answered. Screening blood work before next appointment. General health concerns discussed with patient. Scribe services used to formulate this note under HIPAA compliance and under [place] law mandated for scribe services. Patient aware of service. Verbal consent and written consent taken from the patient. Patient understands and verbalizes understanding of the scribes services and all questions answered regarding scribes services. Patient agrees to use of scribes services. 09/09/2024 Essential (primary) hypertension (ICD-10 - I10) Ms. Campoverde is a 74 year old lady with hypertension, hyperlipidemia, osteoarthritis and follows up with Dr. Storm at [facility] for cortisone injections, neuropathy and sees Dr. Saunders for neuropathy and CKD here for Medicare annual wellness visit. Plan is as follows: Hypertension. Her blood pressure is running high in the office today. Cut back on sodium intake. Advised appropriate hydration, cardio exercises and weight loss. Lisinopril-HCTZ 10-12.5 MG was stopped by Dr. Cadena because of worsening renal function and she was told to take HCTZ 12.5 mg if she notices weight gain. Advised to take HCTZ 12.5 mg and follow-up in 2 weeks and if blood pressure is running high we will add calcium channel segundo. Advised appropriate hydration. Discussed MedRemote program and she is not interested at this point. EKG is normal sinus rhythm at 75 bpm with no acute ST or T wave changes, no bundle-branch blocks, normal intervals Hyperlipidemia. Total cholesterol 212. LDL 111.She has been noncompliant and was advised to Continue Rosuvastatin 10 MG daily and check lipid panel in 4-6 weeks Chronic kidney disease stage 3b. She does not appear to be in volume overload. Advised appropriate hydration. Avoid NSAIDs but she takes meloxicam as needed. We recommended that she should try Tylenol arthritis. She has some tramadol at home which she can take intermittently. Hyperglycemia. Fasting sugars 102. Dietary restrictions, regimental exercise and weight loss advised. Osteoarthritis multiple joints. She is currently going to physiatry for intra-articular injections. She is not taking tramadol at this point Nicotine dependence. She is still currently smoking and cessation advised. She uses nicotine patches. Declines lung cancer screening. Eye screening. She sees her double surface operator regularly. Dental screening. She sees dentist regularly. Osteoporosis screening. She is up to date on BMD. Immunizations. She completed her shingles vaccine. Declines other vaccinations. Advance directive. She is on full code and her HCP is her daughter rEicka. MOLST form given and discussed with the patient. Blood work reviewed with patient and questions answered. Screening blood work before next appointment. General health concerns discussed with patient. Scribe services used to formulate this note under HIPAA compliance and under [place] law mandated for scribe services. Patient aware of service. Verbal consent and written consent taken from the patient. Patient understands and verbalizes understanding of the scribes services and all questions answered regarding scribes services. Patient agrees to use of scribes services. 09/09/2024 Hyperlipidemia, unspecified (ICD-10 - E78.5) Ms. Campoverde is a 74 year old lady with hypertension, hyperlipidemia, osteoarthritis and follows up with Dr. Storm at [facility] for cortisone injections, neuropathy and sees Dr. Saunders for neuropathy and CKD here for Medicare annual wellness visit. Plan is as follows: Hypertension. Her blood pressure is running high in the office today. Cut back on sodium intake. Advised appropriate hydration, cardio exercises and weight loss. Lisinopril-HCTZ 10-12.5 MG was stopped by Dr. Cadena because of worsening renal function and she was told to take HCTZ 12.5 mg if she notices weight gain. Advised to take HCTZ 12.5 mg and follow-up in 2 weeks and if blood pressure is running high we will add calcium channel segundo. Advised appropriate hydration. Discussed MedRemote program and she is not interested at this point. EKG is normal sinus rhythm at 75 bpm with no acute ST or T wave changes, no bundle-branch blocks, normal intervals Hyperlipidemia. Total cholesterol 212. LDL 111.She has been noncompliant and was advised to Continue Rosuvastatin 10 MG daily and check lipid panel in 4-6 weeks Chronic kidney disease stage 3b. She does not appear to be in volume overload. Advised appropriate hydration. Avoid NSAIDs but she takes meloxicam as needed. We recommended that she should try Tylenol arthritis. She has some tramadol at home which she can take intermittently. Hyperglycemia. Fasting sugars 102. Dietary restrictions, regimental exercise and weight loss advised. Osteoarthritis multiple joints. She is currently going to physiatry for intra-articular injections. She is not taking tramadol at this point Nicotine dependence. She is still currently smoking and cessation advised. She uses nicotine patches. Declines lung cancer screening. Eye screening. She sees her double surface operator regularly. Dental screening. She sees dentist regularly. Osteoporosis screening. She is up to date on BMD. Immunizations. She completed her shingles vaccine. Declines other vaccinations. Advance directive. She is on full code and her HCP is her daughter Ericka. MOLST form given and discussed with the patient. Blood work reviewed with patient and questions answered. Screening blood work before next appointment. General health concerns discussed with patient. Scribe services used to formulate this note under HIPAA compliance and under [place] law mandated for scribe services. Patient aware of service. Verbal consent and written consent taken from the patient. Patient understands and verbalizes understanding of the scribes services and all questions answered regarding scribes services. Patient agrees to use of scribes services. 09/09/2024 Chronic kidney disease, stage 3b (ICD-10 - N18.32) Ms. Campoverde is a 74 year old lady with hypertension, hyperlipidemia, osteoarthritis and follows up with Dr. Storm at [facility] for cortisone injections, neuropathy and sees Dr. Saunders for neuropathy and CKD here for Medicare annual wellness visit. Plan is as follows: Hypertension. Her blood pressure is running high in the office today. Cut back on sodium intake. Advised appropriate hydration, cardio exercises and weight loss. Lisinopril-HCTZ 10-12.5 MG was stopped by Dr. Cadena because of worsening renal function and she was told to take HCTZ 12.5 mg if she notices weight gain. Advised to take HCTZ 12.5 mg and follow-up in 2 weeks and if blood pressure is running high we will add calcium channel segundo. Advised appropriate hydration. Discussed MedRemote program and she is not interested at this point. EKG is normal sinus rhythm at 75 bpm with no acute ST or T wave changes, no bundle-branch blocks, normal intervals Hyperlipidemia. Total cholesterol 212. LDL 111.She has been noncompliant and was advised to Continue Rosuvastatin 10 MG daily and check lipid panel in 4-6 weeks Chronic kidney disease stage 3b. She does not appear to be in volume overload. Advised appropriate hydration. Avoid NSAIDs but she takes meloxicam as needed. We recommended that she should try Tylenol arthritis. She has some tramadol at home which she can take intermittently. Hyperglycemia. Fasting sugars 102. Dietary restrictions, regimental exercise and weight loss advised. Osteoarthritis multiple joints. She is currently going to physiatry for intra-articular injections. She is not taking tramadol at this point Nicotine dependence. She is still currently smoking and cessation advised. She uses nicotine patches. Declines lung cancer screening. Eye screening. She sees her double surface operator regularly. Dental screening. She sees dentist regularly. Osteoporosis screening. She is up to date on BMD. Immunizations. She completed her shingles vaccine. Declines other vaccinations. Advance directive. She is on full code and her HCP is her daughter Ericka. MOLST form given and discussed with the patient. Blood work reviewed with patient and questions answered. Screening blood work before next appointment. General health concerns discussed with patient. Scribe services used to formulate this note under HIPAA compliance and under [place] law mandated for scribe services. Patient aware of service. Verbal consent and written consent taken from the patient. Patient understands and verbalizes understanding of the scribes services and all questions answered regarding scribes services. Patient agrees to use of scribes services. 09/09/2024 Hyperglycemia, unspecified (ICD-10 - R73.9) Ms. Campoverde is a 74 year old lady with hypertension, hyperlipidemia, osteoarthritis and follows up with Dr. Storm at [facility] for cortisone injections, neuropathy and sees Dr. Saunders for neuropathy and CKD here for Medicare annual wellness visit. Plan is as follows: Hypertension. Her blood pressure is running high in the office today. Cut back on sodium intake. Advised appropriate hydration, cardio exercises and weight loss. Lisinopril-HCTZ 10-12.5 MG was stopped by Dr. Cadena because of worsening renal function and she was told to take HCTZ 12.5 mg if she notices weight gain. Advised to take HCTZ 12.5 mg and follow-up in 2 weeks and if blood pressure is running high we will add calcium channel segundo. Advised appropriate hydration. Discussed MedRemote program and she is not interested at this point. EKG is normal sinus rhythm at 75 bpm with no acute ST or T wave changes, no bundle-branch blocks, normal intervals Hyperlipidemia. Total cholesterol 212. LDL 111.She has been noncompliant and was advised to Continue Rosuvastatin 10 MG daily and check lipid panel in 4-6 weeks Chronic kidney disease stage 3b. She does not appear to be in volume overload. Advised appropriate hydration. Avoid NSAIDs but she takes meloxicam as needed. We recommended that she should try Tylenol arthritis. She has some tramadol at home which she can take intermittently. Hyperglycemia. Fasting sugars 102. Dietary restrictions, regimental exercise and weight loss advised. Osteoarthritis multiple joints. She is currently going to physiatry for intra-articular injections. She is not taking tramadol at this point Nicotine dependence. She is still currently smoking and cessation advised. She uses nicotine patches. Declines lung cancer screening. Eye screening. She sees her double surface operator regularly. Dental screening. She sees dentist regularly. Osteoporosis screening. She is up to date on BMD. Immunizations. She completed her shingles vaccine. Declines other vaccinations. Advance directive. She is on full code and her HCP is her daughter Ericka. MOLST form given and discussed with the patient. Blood work reviewed with patient and questions answered. Screening blood work before next appointment. General health concerns discussed with patient. Scribe services used to formulate this note under HIPAA compliance and under [place] law mandated for scribe services. Patient aware of service. Verbal consent and written consent taken from the patient. Patient understands and verbalizes understanding of the scribes services and all questions answered regarding scribes services. Patient agrees to use of scribes services. Plan Of Treatment Medication Medication Name Sig Start Date Stop Date Notes Rosuvastatin Calcium 10 MG 1 tablet Oral ly Once a day for 90 days Future Test Test Name Order Date Hemoglobin [id number] 09/09/2024 Albumin/Creatinine Ratio,[id number] Lipid Panel-[id number] 09/09/2024 Comp. Metabolic Panel [id number] 2023 Next Appt Details Follow Up: 2 Weeks- BP, Reas on: Provider Name:Lee Amoschuy marshall, 04/01/2025 11:00:00 AM, [address] [place] [address], [place], [address], Progress Notes * CAMPOVERDEConchita TrinhNadeemB:1950 ( 74 yo F)Acc No.[id number]:09/09/2024 Progress Note Patient:?Juliette CAMPOVERDE Provider:?LAZ AKBAR MD :1950???Age:74 Y???Sex:Female D ate:09/09/2024 Address:[address] [place], [place] [id number] Subjective: * Chief Complaints: * ???AWV * HPI: ???Depression Screening:?PHQ-9?Little interest or pleasure in doing things?Not at all ?Feeling down, depressed, or hopeless?Not at all ?Trouble falling or staying asleep, or sleeping too much?More than half the days ?Feeling tired or having little energy?Several days ?Poor appetite or overeating?Not at all ?Feeling bad about yourself or that you are a failure, or have let yourself or your family down?Not at all ?Trouble concentrating on things, such as reading the newspaper or watching television?Not at all ?Moving or speaking so slowly that other people could have noticed; or the opposite, being so fidgety or restless that you have been moving around a lot more than usual?Not at all ?Thoughts that you would be better off or of hurting yourself in some way?Not at all ?Total Score?3 ?Interpretation?Minimal Depression ???Patient Care Team:?-?No Providers on Record.?Medicare Annual Visit:?Type of Visit?-?Subsequent Annual Wellness Visit ?Language or Communication barrier addressed?-?Yes ?Health Risk Assessment?DEMOGRAPHICS?- ?- How old [age]??[age] ?- How would you best describe your ethnicity??Non- White ?- How would you describe your marital status??__ SINGLE ?- How would you describe your employment status??Retired ?- How many children do you have??two ?RISK ASSESSMENT?- ?- Do you currently use tobacco products??Yes ?- Have you ever used tobacco products??Yes, within the past six months ?- What type of tobacco do you use or have you used??__,Cigarettes ?- (If cigarette smoker) How long have you smoked??>20 years ?- (If cigarette smoker) How many cigarettes do you smoke per day??11-20 ?- How many alcoholic beverages (i.e. 1oz hard liquor, one glass of wine, one bottle of beer) do you drink daily, on average??None 1 A MONTH ?- Have you ever felt the need to cut down on drinking??No ?- Have people annoyed you with criticism of your drinking??No ?- Do you or have you felt guilty for drinking??No ?- Have you ever felt the need to drink first thing in the morning to steady your nerves or to get rid of a hangover??No ?- How often do you exercise??Never ?- How vigorously can you exercise??Not at all ?- How often do you use seatbelts??Always ?- In the past month, how often have you had sex??__ ?- Do you have any significant difficulties or dysfunction during sex??No, never ?- How many partners do you have??__ ?- How often do you experience pain with sex??Never ?- How often do you use condoms during sex??Always ?MENTAL HEALTH ASSESSMENT?- ?- In the past two weeks, how often have you felt depressed, down or hopeless??Never ?- In the past month, how often have you felt anxious or stressed??Never ?- What is your average level of daily stress??None ?- In the past two weeks, how often have you felt a lack of pleasure or interest in doing things??Never ?- In the past two weeks, how often have you had difficulty falling asleep or episodes of sleeping too long??Never ?- In the past two weeks, how often have you had a lack of energy??Never ?- In the past two weeks, how often have you had feelings of being better off or thoughts of harming yourself??Never ?- Have you ever attempted to harm yourself??No ?GENERAL HEALTH/PAIN ASSESSMENT?- ?- In the past month, how often did you experience pain??Daily ?- In the past month, how much has pain affected your ability to work??A little ?- In the past month, how much has pain affected your ability to walk??to a moderate degree ?- In the past month, how much has pain affected your relationship with other people??Not at all ?- On a scale of 1-10, how bad would you rate your average daily pain??7 ?- How would you describe the ease with which you can prepare your own food??Very easy ?- How would you describe the ease with which you can bathe or clean yourself??Very easy ?- How would you describe the ease with which you can dress yourself??Very easy ?- How hard is it to use the toilet by yourself??Not hard at all ?- How would you describe the ease with which you can do your own shopping??Very easy ?- How would you describe the ease with which you can get around your house??Very easy ?- How would you describe your ability to pay your bills??Very good ?- How would you describe your ability to plan your daily and monthly budgets??Very good ?- How would you describe your ability to do routine housework??Very good ?HOME SAFETY/ASSISTANCE?- ?- Do you feel like you are safe in your current home??Yes ?- How many times have you fallen in your home??Never ?- How much would you need to change your living circumstances to feel safe??Not at all ?- Do you feel that living somewhere else would be good for you??No ?- How much help do you feel you need at home??None at all ?- How much does your family help with daily or routine chores??Not at all ?Immunization Status addressed?-?Yes ?Depression Screening?-?PHQ9 done ?Vision Screening?-?Not done ?Hearing Screening?-?Not done ?Fall Risk and Home Safety?-?Negative, no falls in the past year, no difficulty walking, or getting out of bed or chair ?Medication evaluation and reconcilliation performed?Yes ?Vision screening recommended?Yes ?Literature offered to the patient?Yes ?Referrals?physical therapy offered for gait balance and mobility evaluation, fall prevention home evauation offered, DEXA screening offered ?Get Up and Go Evaluation?under 20 seconds ?Psychosocial Risks?-?No overt psychosocial risks shown, observed, or mentioned ?Behavioral Risks?-?Patient seems very well adjusted and no behavorial issues noted ?Activities of daily living?-?Not impaired ?Cognitive Screening?-?No overt cognitive deficiency is apparent by direct observation ???Internal Medicine:?Ms. Campoverde is a 74 year old lady with hypertension, hyperlipidemia, osteoarthritis and follows up with Dr. Storm at [facility] for cortisone injections, neuropathy and sees Dr. Saunders for neuropathy and CKD here for Medicare annual wellness visit. She is in her usual state of health. Vision is stable. She has hearing aids. No systemic or constitutional symptoms. Neurocognitive functions intact. She is physically active and exercises regularly. She gained 3 lbs since last visit. No history of fall. She does not need help with ADLs and IADLs. She does not appear anxious or depressed. She is still smoking at this point. She also uses vapes. Sleep is stable on hydroxyzine, appetite is good. No GI or symptoms. No other issues. * ROS:?General/Constitutional:?Overall health?Good.?Change in appetite?denies.?Chills?denies.?Fever?denies.?Night sweats?denies.?Sleep [...] urination?denies.?difficulty urinating?denies.?discharge?denies.?dysuria?denies.? * Medical History:? * Surgical History:?colectomy because Familial Polyposis 1992right hip replacement 05/23/18left hip replacement, Dr. Storm 03/2020left knee pain 03/2023 * Hospitalization/Major Diagno stic Procedure:?hip replacement 05/23/18 * Family History:?Father: dece ased, colon cancer.?Mother: .?Paternal Grand Father: colon cancer.?Paternal uncle: colon cancer.?Siblings: colon cancer.? * Social History:?Tobacco Use:?Tobacco Use/Smoking?Are you a?current smoker ?How often do you smoke cigarettes??every day ???Drugs/Alcohol:?Drugs?Have you used drugs other than those for medical reasons in the past 12 months??No ?Alcohol Screen (Audit-C)?Did you have a drink containing alcohol in the past year??No ?Points?0 ?Interpretation?Negative ???Miscellaneous:?Exercise: Patient exercises. ?Marital status: single. ?Occupation: Retired. * Medications:?TakinghydroCHLO ROthiazide 12.5 MG Capsule 1 capsule in the morning Orally Once a day hydrOXYzine HCl 10 MG Tablet TAKE 1 TABLET BY MOUTH AT BEDTIME DIRECTED Meloxicam , Notes to Pharmacist: 1-1/2 tablet daily (given by Dr. Saunders)Gabapentin 300 MG Capsule TAKE 1 CAPSULE BY MOUTH THREE TIMES DAILY EVERY DAY Taking hydroCHLOROthiazide 12.5 MG Capsule 1 capsule in the morning Orally Once a day Taking hydrOXYzine HCl 10 MG Tablet TAKE 1 TABLET BY MOUTH AT BEDTIME DIRECTED Taking Meloxicam , Notes to Pharmacist: 1-1/2 tablet daily (given by Dr. Saunders)Taking Gabapentin 300 MG Capsule TAKE 1 CAPSULE BY MOUTH THREE TIMES DAILY EVERY DAY Not-TakingRosuvastatin Calcium 10 MG Tablet 1 tablet Orally Once a day Lisinopril-hydroCHLOROthiazide 10-12.5 MG Tablet TAKE 1 TABLET BY MOUTH EVERY DAY traMADol HCl 50 MG Tablet TAKE 1 TABLET BY MOUTH 2 TIMES DAILY NEEDED FOR PAIN Orally two times per day Medication List reviewed and reconciled with the patientNot-Taking Rosuvastatin Calcium 10 MG Tablet 1 tablet Orally Once a day Not-Taking Lisinopril-hydroCHLOROthiazide 10-12.5 MG Tablet TAKE 1 TABLET BY MOUTH EVERY DAY Not-Taking traMADol HCl 50 MG Tablet TAKE 1 TABLET BY MOUTH 2 TIMES DAILY NEEDED FOR PAIN Orally two times per day Medication List reviewed and reconciled with the patient * Allergies:?Atorvastatin Calc ium: Side EffectstiZANidine HCl: Allergy Objective: * Vitals:?Temp: 96.8 F, Oxygen sat %: 99 %, HR: 78 /min, BP: 154/96 mm Hg,145/90 mm Hg, Wt: 222.7 lbs, BMI: 35.16 Index, Ht: 66.73 in. * ???Past Orders: ???Lab:Albumin/Creatinine Ra crescencio,Urine-[id number] (Order Date - 03/03/2024) (Collection Date & Time - 08/21/2024 09:01 AM) ? Value Reference Range ?Creatinine, Urine 178.2 No t Estab. - mg/dL ?Albumin, Urine 9.7 Not E stab. - ug/mL ?Alb/Creat Ratio 5 0-29 - mg/g creat ???Lab:Comp. Metabolic Panel [id number] (Order Date - 03/03/2024) (Collection Date & Time - 08/21/2024 09:01 AM) ? Value Reference Range ?Glucose 102 H 70-99 - mg/d L ?BUN 17 8-27 - mg/dL ?Creatinine 1.22 H 0.57-1.00 - mg/dL ?BUN/Creatinine Ratio 14 12-28 - ?Sodium 140 134-144 - mmo l/L ?Potassium 4.0 3.5-5.2 - mmol/L ?Chloride 103 96-106 - mm ol/L ?Carbon Dioxide, Total 24 20-29 - mmol/L ?Calcium 9.9 8.7-10.3 - m g/dL ?Protein, Total 6.5 6.0-8 .5 - g/dL ?Albumin 4.0 3.8-4.8 - g/ dL ?Globulin, Total 2.5 1.5- 4.5 - g/dL ?Bilirubin, Total 0.8 0.0 -1.2 - mg/dL ?Alkaline Phosphatase 96 44-121 - IU/L ?AST (SGOT) 16 0-40 - IU /L ?ALT (SGPT) 13 0-32 - IU /L ?eGFR 46 L >59 - mL/min/1. 73 ???Lab:Lipid Panel-[id number] (O rder Date - 03/03/2024) (Collection Date & Time - 08/21/2024 09:01 AM) ? Value Reference Range ?Cholesterol, Total 212 H 1 00-199 - mg/dL ?Triglycerides 141 0-149 - mg/dL ?HDL Cholesterol 77 >39 - mg/dL ?VLDL Cholesterol Linus 24 5-40 - mg/dL ?LDL Chol Calc (NIH) 111 H 0-99 - mg/dL ???Lab:Hemoglobin [id number] (Order Date - 03/03/2024) (Collection Date & Time - 08/21/2024 09:01 AM) ? Value Reference Range ?Hemoglobin A1c/ Hemoglobin total 5.6 4.8-5.6 - % * Examination: ???General Examination: ?Psychiatry?Normal.?GENERAL APPEARANCE:?Well developed, well nourished, in no acute distress.?MUSCULOSKELETAL:?Normal.?HEAD:?Normocephalic, atraumatic.?EYES:?Pupils equal, round, reactive to light and accommodation, sclera non-icteric.?EARS:?Normal.?ORAL CAVITY:?Normal.?THROAT:?Clear.?OROPHARYNX?Normal.?SINUSES?Normal.?NECK/THYROID:?Neck supple, full range of motion, no cervical lymphadenopathy.?SKIN:?Warm and dry, no suspicious lesions.?HEART:?Normal.?LUNGS:?Normal.?BREASTS:?__.?ABDOMEN:?Soft, nontender, nondistended, bowel sounds present, normal.?EXTREMITIES:?Reticular veins, bilateral LE.?PERIPHERAL PULSES:?Normal.?NEUROLOGIC:?alert and oriented. No loss of sensations. Reflexes are symmetrical.?FEMALE GENITOURINARY:?__.?MALE GENITOURINARY:?__.?PODIATRIC:?Normal.?Make Up Editor? .? Assessment: * Assessment: 1.?Encounter for general dyllan lt medical examination without abnormal findings - Z00.00 (Primary)???2.?Essential (primary) hypertension - I10???3.?Hyperlipidemia, unspecified - E78.5???4.?Chronic kidney disease, stage 3b - N18.32? ?5.?Hyperglycemia, unspecified - R73.9??? Ms. Campoverde is a 74 year old la dy with hypertension, hyperlipidemia, osteoarthritis and follows up with Dr. Storm at [facility] for cortisone injections, neuropathy and sees Dr. Saunders for neuropathy and CKD here for Medicare annual wellness visit. Plan is as follows: Hypertension.?Her blood pressure is running high in the office today. Cut back on sodium intake. Advised appropriate hydration, cardio exercises and weight loss.? Lisinopril-HCTZ 10-12.5 MG was stopped by Dr. Cadena because of worsening renal function and she was told to take HCTZ 12.5 mg if she notices weight gain.? Advised to take HCTZ 12.5 mg and follow-up in 2 weeks and if blood pressure is running high we will add calcium channel segundo. ?Advised appropriate hydration.?Discussed [employer] program and she is not interested at this point.? EKG is normal sinus rhythm at 75 bpm with no acute ST or T wave changes, no bundle-branch blocks, normal intervals Hyperlipidemia. Total cholesterol 212. LDL 111.She has been noncompliant and was advised to Continue Rosuvastatin 10 MG daily and check lipid panel in 4-6 weeks Chronic kidney disease stage 3b. She does not appear to be in volume overload. Advised appropriate hydration. Avoid NSAIDs but she takes meloxicam as needed.? We recommended that she should try Tylenol arthritis.? She has some tramadol at home which she can take intermittently. Hyperglycemia. Fasting sugars 102. Dietary restrictions, regimental exercise and weight loss advised. Osteoarthritis multiple joints. She is currently going to physiatry for intra-articular injections. She is not taking tramadol at this point Nicotine dependence. She is still currently smoking and cessation advised. She uses nicotine patches. Declines lung cancer screening.? Eye screening. She sees her double surface operator regularly.? Dental screening. She sees dentist regularly.? Osteoporosis screening. She is up to date on BMD. Immunizations. She completed her shingles vaccine. Declines other vaccinations. Advance directive. She is on full code and her HCP is her daughter Ericka. MOLST form given and discussed with the patient. Blood work reviewed with patient and questions answered. Screening blood work before next appointment. General health concerns discussed with patient. Scribe services used to formulate this note under HIPAA compliance and under [place] law mandated for scribe services. Patient aware of service. Verbal consent and written consent taken from the patient. Patient understands and verbalizes understanding of the scribes services and all questions answered regarding scribes services. Patient agrees to use of scribes services. Plan: * Treatment: 2.?Hyperglycemia, unspecifie d?LAB: Hemoglobin [id number] (Ordered for 09/09/2024) 3.?Others? Refill Rosuvastatin Calcium Tablet, 10 MG, 1 tablet, Orally, Once a day, 90 days, 90 Tablet, Refills 2.?? * Procedure Codes:?G0439 ANNUA L WELLNESS VST; PPS SUBSQT [id number] ELECTROCARDIOGRAM, [id number] ACP DISCUSS/DSCN MKR [id number] BMI >=30 CALCUATE [id number] NEG SCR D PT NOT ELIG F/U/PLN [id number] ELDER MALTX SCR DOC NEG NO F/U [id number] Pt scrn tbco and id as [id number] MOST RECENT SYSTOLIC BP < 140MM [id number] MOST RECENT DIASTOLIC BP < 90MM [id number] NORMAL BP READING DOC F/U NOT RQR * Preventive Medicine:? ??YOUR PREVENTIVE WELLNESS PLAN:?BMI, Height, and Weight:?The Recommended Frequency is:?Annually ?Blood Pressure:?The Recommended Frequency is:?Every 2 years, if BP </= 120/80 mm Hg, Annually, if BP >120-139/80-89 mm Hg ?Vision:?The Recommended Frequency is:?Every 3 years up to age 40, Every 2 years aged 40+ ?Abdominal Aortic Aneurysm:?The Recommended Frequency is:?Once, between the age range of 65-75 and for those who have smoked 100+ cigarettes in lifetime ?Breast Cancer Screening (Mammogram):?The Recommended Frequency is:?Every two years, ages 50-74 ?Cervical Cancer Screening (Pap Smear):?The Recommended Frequency is:?Every three years, ages 21-64, Every five years, ages 30-65 with HPV testing ?Osteoporosis Screening (Bone Density Measurement):?The Recommended Frequency is:?Routinely, for women ages 65+, Routinely, for women ages 60-64 with risk factors ?Cholesterol Testing:?The Recommended Frequency is:?Regularly beginning at age 20 with risk factors ?Diabetes Screening:?The Recommended Frequency is:?With a sustained BP >/= 135/80 mm Hg ?Colorectal Cancer Screening:?The Recommended Frequency is:?Annually, Fecal Occult Blood Stool (FOBS), Every 5 years, Sigmoidoscopy with FOBS, Every 10 years, Colonoscopy ?Sexually Transmitted Diseases (STDs):?The Recommended Frequency is:?As necessary for those with risk factors ?Depression Screening:?The Recommended Frequency is:?As necessary for those with risk factors ?Alcohol Misuse Screening:?The Recommended Frequency is:?As necessary for those with risk factors ?Pneumococcal (Pneumonia) Vaccine:?The Recommended Frequency is:?1-2 doses up to age 64, 1 dose age 65+ ?Influenza (Flu) Vaccine:?The Recommended Frequency is:?Annually ?Other:?____.?Major Risk Factors:?Your Risk Factors Include:?Family history of , Diabetes, Fall Risk, Hypertension, Obesity, Smoking Use, Other ?Recommendations For Improvement ?The recommendations are:?Diet, Exercise, Tobacco cessation, Weight management, Other ?Additional Resources Included:?follow-up instructions, handouts, referrals.?FLU - NO COVID - NO TDAP - NO, DOESNT WANT SHINGREX - 2023 PNEMONIA - NO ZIPPER JOINER/PAP - NO LONGER NEEDED MAMMOGRAM - NO? BONE DENSITY - YES, [facility] COLONOSCOPY - NO EYE EXAM - YES DERM - NO This plan was discussed, printed, and handed to patient. * Follow Up:?2 Weeks- BP * * Sign off status: Completed true * Provider:?LAZ AKBAR MD Date:?09/09 Generated for John mercado/Saira/Shelbyitting on:?10/08/2024 01:37 AM EST History and Physical Notes * HPI (History of Present Illness) Category Sub-Category Detail Notes Category Not es Depression Screening PHQ-9 Little inte rest or pleasure in doing things: Not at all Feeling down, depressed, or hopeless: No t at all Trouble falling or staying a sleep, or sleeping too much: More than half the days Feeling tired or having little energy: S everal days Poor appetite or overeating: Not at all Feeling bad about yourself o r that you are a failure, or have let yourself or your family down: Not at all Trouble concentrating on thi ngs, such as reading the newspaper or watching television: Not at all Moving or speaking so slowly that other people could have noticed; or the opposite, being so fidgety or restless that you have been moving around a lot more than usual: Not at all Thoughts that you would be b katherin off or of hurting yourself in some way: Not at all Total Score: 3 Interpretation: Minimal Depression Medicare Annual Visit Type of Visit -: Subsequent Annual [facility] Visit Language or Communication barrier addressed -: Y es Health Risk Assessment DEMOGRAPHICS: - - How old are [age]?: 70-77 - How would you best describe your ethni city?: Non- White - How would you describe your marital st atus?: __ SINGLE - How would you describe your employment status?: Retired - How many children do you have?: two RISK ASSESSMENT: - - Do you currently use tobacco products? : Yes - Have you ever used tobacco products?: Yes, within the past six months - What type of tobacco do you use or hav e you used?: __,Cigarettes - (If cigarette smoker) How long have yo u smoked?: >20 years - (If cigarette smoker) How many cigaret ginna do you smoke per day?: 11-20 - How many alcoholic beverag es (i.e. 1oz hard liquor, one glass of wine, one bottle of beer) do you drink daily, on average?: None 1 A MONTH - Have you ever felt the need to cut meir n on drinking?: No - Have people annoyed you with criticism of your drinking?: No - Do you or have you felt guilty for dri nking?: No - Have you ever felt the nee d to drink first thing in the morning to steady your nerves or to get rid of a hangover?: No - How often do you exercise?: Never - How vigorously can you exercise?: Not at all - How often do you use seatbelts?: Alway s - In the past month, how often have you had sex?: __ - Do you have any significan t difficulties or dysfunction during sex?: No, never - How many partners do you have?: __ - How often do you experience pain with sex?: Never - How often do you use condoms during se x?: Always MENTAL HEALTH ASSESSMENT: - - In the past two weeks, how often have you felt depressed, down or hopeless?: Never - In the past month, how often have you felt anxious or stressed?: Never - What is your average level of daily st ress?: None - In the past two weeks, how often have you felt a lack of pleasure or interest in doing things?: Never - In the past two weeks, how often have you had difficulty falling asleep or episodes of sleeping too long?: Never - In the past two weeks, how often have you had a lack of energy?: Never - In the past two weeks, how often have you had feelings of being better off or thoughts of harming yourself?: Never - Have you ever attempted to harm yourse lf?: No GENERAL HEALTH/PAIN ASSESSMENT: - - In the past month, how often did you e xperience pain?: Daily - In the past month, how muc h has pain affected your ability to work?: A little - In the past month, how muc h has pain affected your ability to walk?: to a moderate degree - In the past month, how muc h has pain affected your relationship with other people?: Not at all - On a scale of 1-10, how bad would you rate your average daily pain?: 7 - How would you describe the ease with which you can prepare your own food?: Very easy - How would you describe the ease with which you can bathe or clean yourself?: Very easy - How would you describe the ease with which you can dress yourself?: Very easy - How hard is it to use the toilet by yo urself?: Not hard at all - How would you describe the ease with which you can do your own shopping?: Very easy - How would you describe the ease with which you can get around your house?: Very easy - How would you describe your ability to pay your bills?: Very good - How would you describe you r ability to plan your daily and monthly budgets?: Very good - How would you describe your ability to do routine housework?: Very good HOME SAFETY/ASSISTANCE: - - Do you feel like you are safe in your current home?: Yes - How many times have you fallen in your home?: Never - How much would you need to change your living circumstances to feel safe?: Not at all - Do you feel that living somewhere else would be good for you?: No - How much help do you feel you need at home?: None at all - How much does your family help with da miah or routine chores?: Not at all Immunization Status addressed -: Yes Vision Screening -: Not done Depression Screening -: PHQ9 done Hearing Screening -: Not done Fall Risk and Home Safety -: Negative, n o falls in the past year, no difficulty walking, or getting out of bed or chair Medication evaluation and reconcilliatio n performed: Yes Vision screening recommended: Yes Literature offered to the patient: Yes Referrals: physical therapy offered for gait balance and mobility evaluation, fall prevention home evauation offered, DEXA screening offered Get Up and Go Evaluation: under 20 secon ds Psychosocial Risks -: No overt psychoso cial risks shown, observed, or mentioned Behavioral Risks -: Patient seems bk y well adjusted and no behavorial issues noted Activities of daily living -: Not impaired Cognitive Screening -: No overt cognitiv e deficiency is apparent by direct observation Patient Care Team - No Providers on Record Internal Medicine Ms. Gilles velasquez s a 74 year old lady with hypertension, hyperlipidemia, osteoarthritis and follows up with Dr. Storm at [facility] for cortisone injections, neuropathy and sees Dr. Saunders for neuropathy and CKD here for Medicare annual wellness visit. She is in her usual state of health. Vision is stable. She has hearing aids. No systemic or constitutional symptoms. Neurocognitive functions intact. She is physically active and exercises regularly. She gained 3 lbs since last visit. No history of fall. She does not need help with ADLs and IADLs. She does not appear anxious or depressed. She is still smoking at this point. She also uses vapes. Sleep is stable on hydroxyzine, appetite is good. No GI or symptoms. No other issues. Examination Category Sub-Category Detail Notes Category [...] Normal Psychiatry Normal OROPHARYNX Normal SINUSES Normal Make Up Editor
--- OUTSIDE RECORDS SUMMARY | 2024-10-08 01:38 | XMS_ITS | Patient Health Record ---
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 Prediabetes: 5.7 - 6.4 Diabetes: >6.4 Glycemic control for adults with diabetes: <7.0 Lipid [id number] Reviewed date:08/24/2024 04:39:24 PM Interpretation: Performing Lab:Labalesha Weldon, [facility] [place], Phone - [phone], Director - Tim Notes/Report: Cholesterol, Total 212 100-199 mg/dL Triglycerides 141 0-149 mg/dL HDL Cholesterol 77 >39 mg/dL VLDL Cholesterol Linus 24 5-40 mg/dL LDL Chol Calc (NIH) 111 0-99 mg/dL Comp. Metabolic Panel (14)-3 Reviewed date:08/24/2024 12:53:54 PM Interpretation: Performing Lab:Labcosh[facility]pa Weldon, [facility], Phone - [phone], Director - Tim Notes/Report: Glucose 102 70-99 mg/dL BUN 17 8-27 mg/dL Creatinine 1.22 0.57-1.00 mg/dL eGFR 46 >59 mL/min/1.73 BUN/Creatinine Ratio 14 12-28 Sodium 140 134-144 mmol/L Potassium 4.0 3.5-5.2 mmol/L Chloride 103 96-106 mmol/L Carbon Dioxide, Total 24 20-29 mmol/L Calcium 9.9 8.7-10.3 mg/dL Protein, Total 6.5 6.0-8.5 g/dL Albumin 4.0 3.8-4.8 g/dL Globulin, Total 2.5 1.5-4.5 g/dL Bilirubin, Total 0.8 0.0-1.2 mg/dL Alkaline Phosphatase 96 44-121 IU/L AST (SGOT) 16 0-40 IU/L ALT (SGPT) 13 0-32 IU/L Albumin/Creatinine Ratio,Uri [id number] Reviewed date:08/23/2024 09:18:44 AM Interpretation: Performing Lab:Labalesha Weldon, [address] [place] [address], [place], Phone - [phone], Director - Tim Notes/Report: Creatinine, Urine 178.2 Not Estab. mg/dL Albumin, Urine 9.7 Not Estab. ug/mL Alb/Creat Ratio 5 0-29 mg/g creat Normal: 0 - 29 Moderately increased: 30 - 300 Severely increased: >300 Reason For Referral No Information Medications Medication SIG (Take, Route, Frequency, Duration) Notes Start Date End Date Status hydrOXYzine HCl 10 MG TAKE 1 TABLET BY MOUTH AT BEDTIME DIRECTED for 30 Active hydroCHLOROthiazide 12.5 MG 1 capsule in the morning Orally Once a day Active traMADol HCl 50 MG TAKE 1 [...] Meloxicam 1-1/2 tablet daily (given by Dr. Sanuders) Active Immunizations Vaccine Route Administration Date Status Comme nts COVID Moderna Unknown 01/03/2021 Administered COVID Moderna Unknown 02/01/2021 Administered COVID Moderna Unknown 09/08/2021 Administered Flu Unknown 08/22/2022 Administered Fluzone High-Dose Unknown 08/10/2023 Administered Shingrix Unknown 11/29/2023 Administered Shingrix Unknown 02/19/2024 Administered Zoster Unknown 05/23/2016 Administered Social History Tobacco Use: Social History Observation Description Date Details (start date - stop date) Current Smoker NA - NA Tobacco Use/Smoking Question Answer Notes Are you a current smoker How often do you smoke cigarettes? every day Alcohol Screen (Audit-C) Question Answer Notes Did you have a drink containing alcohol in the p ast year? No Points 0 Interpretation Negative Problems Problem Type SNOMED Code ICD Code Onset Dates Problem Status W/U Status Risk Notes Problem Tobacco user (761953116) Nicotine dependence, cigarettes, uncomplicated (F17.210) Active confirmed Problem Insomnia (747895941) Insomnia, unspecified (G47.00) Active confirmed Problem Essential hypertension (67740491) Essential (primary) hypertension (I10) Active confirmed Problem Disorder of skin AND/OR subcutaneous tissue (87405020) Disorder of the skin and subcutaneous tissue, unspecified (L98.9) Active confirmed Problem Osteoarthritis (068870752) Polyosteoarthriti s, unspecified (M15.9) Active confirmed Problem Osteoarthritis of knee (849104024) Bilateral primary osteoarthritis of knee (M17.0) Active confirmed Problem Hyperglycemia (52323864) Hyperglycemia, unspecified (R73.9) Active confirmed Problem Hyperlipidemia (97809101) Hyperlipidemia, unspecified (E78.5) Active confirmed Problem Chronic kidney disease stage 3B (disorder) (989041962) Chronic kidney disease, stage 3b (N18.32) Active confirmed Problem Age-related osteoporosis (886291968) Osteoporosis without current pathological fracture, unspecified osteoporosis type (M81.0) Active confirmed Vital Signs Heart Rate 104 /min 10/01/2024 Temperature 97.6 degrees Fahrenheit 10/01/2024 Blood pressure diastolic 84 mm Hg 10/01/2024 Oximetry 94 % 10/01/2024 Height 66.73 in 10/01/2024 Blood pressure systolic 130 mm Hg 10/01/2024 Weight 222.7 lbs 10/01/2024 BMI 35.16 kg/m2 10/01/2024 Encounters Encounter Location Date Provider Diagnosis [address] [place] [address] 03/03/2024 LAZ AKBAR Essential (primary) hypertension I10 ; Hyperlipidemia, unspecified E78.5 ; Hyperglycemia, unspecified R73.9 ; Nicotine dependence, cigarettes, uncomplicated F17.210 ; Chronic kidney disease, stage 3b N18.32 and Polyosteoarthritis, unspecified M15.[address] [place] [address] 09/09/2024 LAZ AKBAR Encounter for genera l adult medical examination without abnormal findings Z00.00 ; Essential (primary) hypertension I10 ; Hyperlipidemia, unspecified E78.5 ; Chronic kidney disease, stage 3b N18.32 and Hyperglycemia, unspecified R73.[address] [place] [address] 10/01/2024 Lee Johnson Essential (primary) hypertension I10 [address] [place] [address] 11/25/2023 LAZ AKBAR Assessments Encounter Date Diagnosis (ICD Code) Assessment Notes Treatment Notes Treatment Clinical Notes Section Notes 03/03/2024 Essential (primary) hypertension (ICD-10 - I10) Ms. Campoverde is a 73 year old lady with hypertension, hyperlipidemia, osteoarthritis and follows up with Dr. Storm at [facility] for cortisone injections, neuropathy and sees Dr. Saunders for neuropathy and CKD here for follow up. Plan is as follows: Hypertension. Blood pressure well controlled on current regimen. Continue Lisinopril-HCTZ 10-12.5 MG once a day. Advised appropriate hydration. Hyperlipidemia. Total cholesterol is running high. Suggested dietary modifications and weight loss advised. Advised to use calorie counter and adhere to portion control. Continue Rosuvastatin 10 MG daily Chronic kidney disease stage 3b. She does not appear to be in volume overload. Advised appropriate hydration. Avoid NSAIDs. Hyperglycemia. Dietary restrictions, regimental exercise and weight loss advised. osteoarthritis multiple joints. She is currently going to physiatry for intra-articular injections. She is not taking tramadol at this point Nicotine dependence. She is still currently smoking and cessation advised. She uses nicotine patches. Declines lung cancer screening. Screening blood work before next appointment. General health concerns discussed with patient. Scribe services used to formulate this note under HIPAA compliance and under [place] law mandated for scribe services. Patient aware of service. Verbal consent and written consent taken from the patient. Patient understands and verbalizes understanding of the scribes services and all questions answered regarding scribes services. Patient agrees to use of scribes services. 09/09/2024 Encounter for general adult medical examination without abnormal findings (ICD-10 - Z00.00) Ms. Campoverde is a 74 year old lady with hypertension, hyperlipidemia, osteoarthritis and follows up with Dr. Storm at [facility] for cortisone injections, neuropathy and sees [...] cancer screening. Eye screening. She sees her golf ball winder regularly. Dental screening. She sees dentist regularly. [...] this note under HIPAA compliance and under [place] law mandated for scribe services. Patient aware of service. Verbal consent and written consent taken from the patient. Patient understands and verbalizes understanding of the scribes services and all questions answered regarding scribes services. Patient agrees to use of scribes services. 10/01/2024 Essential (primary) hypertension (ICD-10 - I10) Ms. Campoverde is a 74 year old lady with hypertension, hyperlipidemia, osteoarthritis and follows up with Dr. Storm at [facility] for cortisone injections, neuropathy and sees [...] the patient but was available upon request 03/03/2024 Hyperlipidemia, unspecified (ICD-10 - E78.5) Ms. Campoverde is a 73 year old lady with hypertension, hyperlipidemia, osteoarthritis and follows up with Dr. Storm at [facility] for cortisone injections, neuropathy and sees Dr. Saunders for neuropathy and CKD here for follow up. Plan is as follows: Hypertension. Blood pressure well controlled on current regimen. Continue Lisinopril-HCTZ 10-12.5 MG once a day. Advised appropriate hydration. Hyperlipidemia. Total cholesterol is running high. Suggested dietary modifications and weight loss advised. Advised to use calorie counter and adhere to portion control. Continue Rosuvastatin 10 MG daily Chronic kidney disease stage 3b. She does not appear to be in volume overload. Advised appropriate hydration. Avoid NSAIDs. Hyperglycemia. Dietary restrictions, regimental exercise and weight loss advised. osteoarthritis multiple joints. She is currently going to physiatry for intra-articular injections. She is not taking tramadol at this point Nicotine dependence. She is still currently smoking and cessation advised. She uses nicotine patches. Declines lung cancer screening. Screening blood work before next appointment. General health concerns discussed with patient. Scribe services used to formulate this note under HIPAA compliance and under [place] law mandated for scribe services. Patient aware [...] and follows up with Dr. Storm at [facility] for cortisone injections, neuropathy and sees [...] cancer screening. Eye screening. She sees her golf ball winder regularly. Dental screening. She sees dentist regularly. [...] this note under HIPAA compliance and under [place] law mandated for scribe services. Patient aware of service. Verbal consent and written consent taken from the patient. Patient understands and verbalizes understanding of the scribes services and all questions answered regarding scribes services. Patient agrees to use of scribes services. 03/03/2024 Hyperglycemia, unspecified (ICD-10 - R73.9) Ms. Campoverde is a 73 year old lady with hypertension, hyperlipidemia, osteoarthritis and follows up with Dr. Storm at [facility] for cortisone injections, neuropathy and sees Dr. Saunders for neuropathy and CKD here for follow up. Plan is as follows: Hypertension. Blood pressure well controlled on current regimen. Continue Lisinopril-HCTZ 10-12.5 MG once a day. Advised appropriate hydration. Hyperlipidemia. Total cholesterol is running high. Suggested dietary modifications and weight loss advised. Advised to use calorie counter and adhere to portion control. Continue Rosuvastatin 10 MG daily Chronic kidney disease stage 3b. She does not appear to be in volume overload. Advised appropriate hydration. Avoid NSAIDs. Hyperglycemia. Dietary restrictions, regimental exercise and weight loss advised. osteoarthritis multiple joints. She is currently going to physiatry for intra-articular injections. She is not taking tramadol at this point Nicotine dependence. She is still currently smoking and cessation advised. She uses nicotine patches. Declines lung cancer screening. Screening blood work before next appointment. General health concerns discussed with patient. Scribe services used to formulate this note under HIPAA compliance and under [place] law mandated for scribe services. Patient aware [...] and follows up with Dr. Storm at [facility] for cortisone injections, neuropathy and sees [...] cancer screening. Eye screening. She sees her golf ball winder regularly. Dental screening. She sees dentist regularly. [...] this note under HIPAA compliance and under [place] law mandated for scribe services. Patient aware [...] and follows up with Dr. Storm at [facility] for cortisone injections, neuropathy and sees [...] cancer screening. Eye screening. She sees her golf ball winder regularly. Dental screening. She sees dentist regularly. [...] this note under HIPAA compliance and under [place] law mandated for scribe services. Patient aware of service. Verbal consent and written consent taken from the patient. Patient understands and verbalizes understanding of the scribes services and all questions answered regarding scribes services. Patient agrees to use of scribes services. 03/03/2024 Nicotine dependence, cigarettes, uncomplicated (ICD-10 - F17.210) Ms. Campoverde is a 73 year old lady with hypertension, hyperlipidemia, osteoarthritis and follows up with Dr. Storm at [facility] for cortisone injections, neuropathy and sees Dr. Saunders for neuropathy and CKD here for follow up. Plan is as follows: Hypertension. Blood pressure well controlled on current regimen. Continue Lisinopril-HCTZ 10-12.5 MG once a day. Advised appropriate hydration. Hyperlipidemia. Total cholesterol is running high. Suggested dietary modifications and weight loss advised. Advised to use calorie counter and adhere to portion control. Continue Rosuvastatin 10 MG daily Chronic kidney disease stage 3b. She does not appear to be in volume overload. Advised appropriate hydration. Avoid NSAIDs. Hyperglycemia. Dietary restrictions, regimental exercise and weight loss advised. osteoarthritis multiple joints. She is currently going to physiatry for intra-articular injections. She is not taking tramadol at this point Nicotine dependence. She is still currently smoking and cessation advised. She uses nicotine patches. Declines lung cancer screening. Screening blood work before next appointment. General health concerns discussed with patient. Scribe services used to formulate this note under HIPAA compliance and under [place] law mandated for scribe services. Patient aware [...] and follows up with Dr. Storm at [facility] for cortisone injections, neuropathy and sees [...] cancer screening. Eye screening. She sees her golf ball winder regularly. Dental screening. She sees dentist regularly. [...] this note under HIPAA compliance and under [place] law mandated for scribe services. Patient aware of service. Verbal consent and written consent taken from the patient. Patient understands and verbalizes understanding of the scribes services and all questions answered regarding scribes services. Patient agrees to use of scribes services. 03/03/2024 Chronic kidney disease, stage 3b (ICD-10 - N18.32) Ms. Campoverde is a 73 year old lady with hypertension, hyperlipidemia, osteoarthritis and follows up with Dr. Storm at [facility] for cortisone injections, neuropathy and sees Dr. Saunders for neuropathy and CKD here for follow up. Plan is as follows: Hypertension. Blood pressure well controlled on current regimen. Continue Lisinopril-HCTZ 10-12.5 MG once a day. Advised appropriate hydration. Hyperlipidemia. Total cholesterol is running high. Suggested dietary modifications and weight loss advised. Advised to use calorie counter and adhere to portion control. Continue Rosuvastatin 10 MG daily Chronic kidney disease stage 3b. She does not appear to be in volume overload. Advised appropriate hydration. Avoid NSAIDs. Hyperglycemia. Dietary restrictions, regimental exercise and weight loss advised. osteoarthritis multiple joints. She is currently going to physiatry for intra-articular injections. She is not taking tramadol at this point Nicotine dependence. She is still currently smoking and cessation advised. She uses nicotine patches. Declines lung cancer screening. Screening blood work before next appointment. General health concerns discussed with patient. Scribe services used to formulate this note under HIPAA compliance and under [place] law mandated for scribe services. Patient aware of service. Verbal consent and written consent taken from the patient. Patient understands and verbalizes understanding of the scribes services and all questions answered regarding scribes services. Patient agrees to use of scribes services. 03/03/2024 Polyosteoarthriti s, unspecified (ICD-10 - M15.9) Ms. Campoverde is a 73 year old lady with hypertension, hyperlipidemia, osteoarthritis and follows up with Dr. Storm at [facility] for cortisone injections, neuropathy and sees Dr. Saunders for neuropathy and CKD here for follow up. Plan is as follows: Hypertension. Blood pressure well controlled on current regimen. Continue Lisinopril-HCTZ 10-12.5 MG once a day. Advised appropriate hydration. Hyperlipidemia. Total cholesterol is running high. Suggested dietary modifications and weight loss advised. Advised to use calorie counter and adhere to portion control. Continue Rosuvastatin 10 MG daily Chronic kidney disease stage 3b. She does not appear to be in volume overload. Advised appropriate hydration. Avoid NSAIDs. Hyperglycemia. Dietary restrictions, regimental exercise and weight loss advised. osteoarthritis multiple joints. She is currently going to physiatry for intra-articular injections. She is not taking tramadol at this point Nicotine dependence. She is still currently smoking and cessation advised. She uses nicotine patches. Declines lung cancer screening. Screening blood work before next appointment. General health concerns discussed with patient. Scribe services used to formulate this note under HIPAA compliance and under [place] law mandated for scribe services. Patient aware of service. Verbal consent and written consent taken from the patient. Patient understands and verbalizes understanding of the scribes services and all questions answered regarding scribes services. Patient agrees to use of scribes services. Plan Of Treatment Pending Test Test Name Order Date LYME C6 ANTIBODY 10/23/2018 Future Test Test Name Order Date BASIC METABOLIC PANEL 04/18/2022 LIPID PANEL 04/18/2022 Hemoglobin [id number] 09/09/2024 Albumin/Creatinine Ratio,[id number] Lipid Panel-[id number] 09/09/2024 Comp. Metabolic Panel [id number] 2023 Next Appt Details Provider Name:Lee marshall, 04/01/2025 11:00:00 AM, [address] [place] [address], [phone], Insurance Providers Payer Name Payer Address Payer Phone Subscriber Number Group Number Insured Name Patient Relationship to Insured Coverage Start Date Coverage End Date Medicare [address] [place] [phone] [id number] Juliette Campoverde Self - patient is the insured 3 [facility] [address] [place] [address] [id number] Juliette Campoverde Self - patient is the insured 6 Medical (General) History Medical History History ICD Code Essential (primary) hypertension I10 Hyperlipidemia, unspecified E78.5 Pain in left hip M25.552 Low back pain M54.5 Unilateral primary osteoarthritis, right hip M16.11 Unilateral primary osteoarthritis, right knee M17.11 Localized edema R60.0 CKD stage 4 Surgical History Surgery Date(Month/Year) colectomy because Familial Polyposis 199 3 right hip replacement 05/23/18 left hip replacement, Dr. Storm 03/2020 left knee pain 03/2023 Hospitalization History Reason Date(Month/Year) hip replacement 05/23/18
--- OUTSIDE RECORDS SUMMARY | 2024-10-08 01:38 | XMS_ITS ---
Author Organization [facility] Address [address] [place] [address] Care Team Providers Care Nail Maker Name Role Phone LAZ AKBAR Primary Care Provider [phone] Allergies Allergen (clinical drug ingredient) Drug/Non Drug Allergy documented on EMR Reaction Allergy Type Onset Date Status atorvastatin Atorvastatin Calcium Unknown Drug Allergy Active tizanidine tiZANidine HCl Unknown Drug Allergy A ctive REASON FOR VISIT 6 month f/u Medications Medication SIG (Take, Route, Frequency, Duration) Notes Start Date End Date Status Gabapentin 300 MG TAKE 1 CAPSULE BY MOUTH THREE TIMES DAILY EVERY DAY for 90 Active Meloxicam 1-1/2 tablet daily (given by Dr. Saunders) Active hydrOXYzine HCl 10 MG TAKE 1 TABLET BY MOUTH AT BEDTIME DIRECTED for 30 Active Rosuvastatin Calcium 10 MG TAKE 1 TABLET BY MOUTH EVERY DAY for 30 Active traMADol HCl 50 MG TAKE 1 TABLET BY MOUTH 2 TIMES DAILY NEEDED FOR PAIN Orally two times per day for 28 days 05/01/2023 Not-Taking Lisinopril-hydroCHLOR Othiazide 10-12.5 MG TAKE 1 TABLET BY MOUTH EVERY DAY for 90 Active Social History Tobacco Use: Social History [...] Problem Status W/U Status Risk Notes Problem Osteoarthritis ([id number]) Polyosteoarthri tis, unspecified (M15.9) Active confirmed Vital Signs Temperature 97.2 degrees Fahrenheit 03/03/20 24 Oximetry 97 % 03/03/2024 Heart Rate 100 /min 03/03/2024 Blood pressure systolic 110 mm Hg 03/03/20 24 Blood pressure diastolic 72 mm Hg 024 Weight 220lb lbs 03/03/2024 BMI 34.73 kg/m2 03/03/2024 Height 66.73 in 03/03/2024 Encounters Encounter Location Date Provider Diagnosis [facility] [address] [address] 03/03/2024 LAZ AKBAR Essential (primary) hypertension I10 ; Hyperlipidemia, unspecified E78.5 ; Hyperglycemia, unspecified R73.9 ; Nicotine dependence, cigarettes, uncomplicated F17.210 ; Chronic kidney disease, stage 3b N18.32 and Polyosteoarthritis, unspecified M15.9 Assessments Encounter Date Diagnosis (ICD Code) Assessment Notes Treatment Notes Treatment Clinical Notes Section Notes 03/03/2024 Essential (primary) hypertension (ICD-10 - I10) Ms. Campoverde is a 73 year old lady with hypertension, hyperlipidemia, osteoarthritis and follows up with Dr. Storm at [facility] for cortisone injections, neuropathy and sees Dr. [...] this note under HIPAA compliance and under [place] law mandated for scribe services. Patient aware of service. Verbal consent and written consent taken from the patient. Patient understands and verbalizes understanding of the scribes services and all questions answered regarding scribes services. Patient agrees to use of scribes services. 03/03/2024 Hyperlipidemia, unspecified (ICD-10 - E78.5) Ms. Campoverde is a 73 year old lady with hypertension, hyperlipidemia, osteoarthritis and follows up with Dr. Storm at [facility] for cortisone injections, neuropathy and sees Dr. [...] this note under HIPAA compliance and under [place] law mandated for scribe services. Patient aware [...] and follows up with Dr. Storm at [facility] for cortisone injections, neuropathy and sees Dr. [...] this note under HIPAA compliance and under [place] law mandated for scribe services. Patient aware [...] and follows up with Dr. Storm at [facility] for cortisone injections, neuropathy and sees Dr. [...] this note under HIPAA compliance and under [place] law mandated for scribe services. Patient aware [...] and follows up with Dr. Storm at [facility] for cortisone injections, neuropathy and sees Dr. [...] this note under HIPAA compliance and under [place] law mandated for scribe services. Patient aware [...] and follows up with Dr. Storm at [facility] for cortisone injections, neuropathy and sees Dr. [...] this note under HIPAA compliance and under [place] law mandated for scribe services. Patient aware of service. Verbal consent and written consent taken from the patient. Patient understands and verbalizes understanding of the scribes services and all questions answered regarding scribes services. Patient agrees to use of scribes services. Plan Of Treatment Next Appt Details Follow Up: 6 Months, Reason: Provider Name:Lee Longoria joanna, 04/01/2025 11:00:00 AM, [address] [place] [address], [place], [address], Progress Notes * Rand CAMPOVERDEB:1950 ( 73 yo F)Acc No.[id number]:03/03/2024 Progress Notes Patient:?Juliette CAMPOVERDE Provider:?LAZ AKBAR MD :1950???Age:73 Y???Sex:Female D ate:03/03/2024 Address:[address] [place], [place] [id number] Subjective: * Chief Complaints: * ???6 month f/u * HPI: ???Internal Medicine:? Ms. Campoverde is a 73 year old lady with hypertension, hyperlipidemia, osteoarthritis and follows up with Dr. Storm at [facility] for cortisone injections, neuropathy and sees Dr. Saunders for neuropathy and CKD here for follow up. She is physically active and exercises regularly. She lost 5 lbs since last visit. No history of fall. She does not need help with ADLs and IADLs. She does not appear anxious or depressed. She is still smoking at this point. She also uses vapes. Sleep is stable on hydroxyzine, appetite is good. No GI or symptoms. No other issues. * ROS:?General/Constitutional:?Overall health?Good.?Change in appetite?denies.?Chills?denies.?Fever?denies.?Night sweats?denies.?Sleep disturbance?denies.?Weight gain?denies.?Weight loss?admits, 5?pounds.?Neurologic:?Difficulty speaking?denies.?Dizziness?denies.?Gait abnormality?denies.?Headache?denies.?Loss of strength?denies.?Memory loss?denies.?Seizures?denies.?Tingling/Numbness?denies ?.?Ophthalmologic:?Blurred vision?denies.?Discharge?denies.?Dry eye?denies.?Red eye?denies.?ENT:?Change in Voice?Denies.?Cold Symptoms?Denies.?Cough?Denies.?Dizziness?Denies.?Nasal Congestion?Denies.?Otalgia?Denies.?postnasal [...] exercises. ?Marital status: single. ?Occupation: Retired. * Medications:?TakingRosuvasta tin Calcium 10 MG Tablet TAKE 1 TABLET BY MOUTH EVERY DAY hydrOXYzine HCl 10 MG Tablet TAKE 1 TABLET BY MOUTH AT BEDTIME DIRECTED Lisinopril-hydroCHLOROthiazide 10-12.5 MG Tablet TAKE 1 TABLET BY MOUTH EVERY DAY Meloxicam , Notes to Pharmacist: 1-1/2 tablet daily (given by Dr. Saunders)Gabapentin 300 MG Capsule TAKE 1 CAPSULE BY MOUTH THREE TIMES DAILY EVERY DAY Taking Rosuvastatin Calcium 10 MG Tablet TAKE 1 TABLET BY MOUTH EVERY DAY Taking hydrOXYzine HCl 10 MG Tablet TAKE 1 TABLET BY MOUTH AT BEDTIME DIRECTED Taking Lisinopril-hydroCHLOROthiazide 10-12.5 MG Tablet TAKE 1 TABLET BY MOUTH EVERY DAY Taking Meloxicam , Notes to Pharmacist: 1-1/2 tablet daily (given by Dr. Saunders)Taking Gabapentin 300 MG Capsule TAKE 1 CAPSULE BY MOUTH THREE TIMES DAILY EVERY DAY Not-TakingtraMADol HCl 50 MG Tablet TAKE 1 TABLET BY MOUTH 2 TIMES DAILY NEEDED FOR PAIN Orally two times per day Medication List reviewed and reconciled with the patientNot-Taking traMADol HCl 50 MG Tablet TAKE 1 TABLET BY MOUTH 2 TIMES DAILY NEEDED FOR PAIN Orally two times per day Medication List reviewed and reconciled with the patient * Allergies:?Atorvastatin Calc ium: Side EffectstiZANidine HCl: Allergyno[Allergies Verified] Objective: * Vitals:?Temp:97.2F, Oxygen s at %:97%, HR:100/min, BP:110/72mm Hg, Wt:220lb, BMI:34.73Index, Ht: 66.73 in. * ???Past Orders: ???Lab:BASIC METABOLIC PANEL (Order Date - 08/26/2023) (Collection Date & Time - 08/27/2023 12:58 PM) ? Value Reference Range ?CALCIUM 9.8 (8.6-10.5) - MG/DL ?BICARBONATE 26 (22-29) - MMOL/L ?CHLORIDE 101 (98-107) - MMOL/L ?EST GFR NON 36 - ML/MIN/1.73 M2 ?CREATININE 1.5 H (0.5-1.0) - MG/DL ?ANION GAP 12 (4-17) - ?GLUCOSE 96 (70-99) - MG /DL ?POTASSIUM 4.2 (3.6-5.2) - MMOL/L ?SODIUM 139 (133-145) - M MOL/L ?BUN 23 (8-23) - MG/DL ???Lab:HEMOGLOBIN A1C (Order Date - 08/26/2023) (Collection Date & Time - 08/27/2023 12:58 PM) ? Value Reference Range ?HEMOGLOBIN A1C 5.6 (4.0- 5.6) - % ???Lab:LIPID PANEL (Order Da te - 08/26/2023) (Collection Date & Time - 08/27/2023 12:58 PM) ? Value Reference Range ?LDL CHOLESTEROL, CALCULATED 101 (0-130) - MG/DL ?CHOLESTEROL, TOTAL 205 H ( <200) - MG/DL ?HDL CHOL 74 (>39) - MG/ DL ?NON HDL CHOLESTEROL (CALC) 131 (<160) - MG/DL ?TRIGLYCERIDE 151 H (<150) - MG/DL * Examination: ???General Examination: ?Psychiatry?Normal.?GENERAL APPEARANCE:?Well developed, well nourished, in no acute distress.?MUSCULOSKELETAL:?Normal.?HEAD:?Normocephalic, atraumatic.?EYES:?Pupils equal, round, reactive to light and accommodation, sclera non-icteric.?EARS:?Normal.?ORAL CAVITY:?Normal.?THROAT:?Clear.?OROPHARYNX?Normal.?SINUSES?Normal.?NECK/THYROID:?Neck supple, full range of motion, no cervical lymphadenopathy.?SKIN:?Warm and dry, no suspicious lesions.?HEART:?Normal.?LUNGS:?Normal.?BREASTS:?__.?ABDOMEN:?Soft, nontender, nondistended, bowel sounds present, normal.?EXTREMITIES:?Reticular veins, bilateral LE.?PERIPHERAL PULSES:?Normal.?NEUROLOGIC:?alert and oriented. No loss of sensations. Reflexes are symmetrical.?FEMALE GENITOURINARY:?__.?MALE GENITOURINARY:?__.?PODIATRIC:?Normal.?[facility]? .? Assessment: * Assessment: 1.?Essential (primary) hyper tension - I10?2.?Hyperlipidemia, unspecified - E78.5?3.?Hyperglycemia, unspecified - R73.9?4.?Nicotine dependence, cigarettes, uncomplicated - F17.210?5.?Chronic kidney disease, stage 3b - N18.32?6.?Polyosteoarthritis, unspecified - M15.9? Ms. Campoverde is a 73 year old la dy with hypertension, hyperlipidemia, osteoarthritis and follows up with Dr. Storm at [facility] for cortisone injections, neuropathy and sees Dr. [...] this note under HIPAA compliance and under [place] law mandated for scribe services. Patient aware of service. Verbal consent and written consent taken from the patient. Patient understands and verbalizes understanding of the scribes services and all questions answered regarding scribes services. Patient agrees to use of scribes services. Plan: * Treatment: 2.?Hyperglycemia, unspecifie d?LAB: Hemoglobin [id number] (Ordered for 03/03/2024) * Procedure Codes:? * Follow Up:?6 Months * Images: * Sign off status: Completed true * Provider:?LAZ AKBAR MD Date:?03/03 Generated for John mercado/Saira/Dorinda on:?10/08/2024 01:37 AM EST History and Physical Notes * HPI (History of Present Illness) Category Sub-Category Detail Notes Category Not es Internal Medicine Ms. Gilles velasquez s a 73 year old lady with hypertension, hyperlipidemia, osteoarthritis and follows up with Dr. Storm at [facility] for cortisone injections, neuropathy and sees Dr. Saunders for neuropathy and CKD here for follow up. She is physically active and exercises regularly. She lost 5 lbs since last visit. No history of [...] Normal Psychiatry Normal OROPHARYNX Normal SINUSES Normal [facility]
== END 2024-10-07 11:51 | disposition home or self-care (01) ==
PROVIDERS: PCP Hospitalist; Visit Provider Orthopaedic Surgery
DX: M25.562 Pain in left knee (principal)
CPT/HCPCS: 99213; G2211

== ENCOUNTER → 2024-10-07 11:26 | Outpatient (BNVA) | payer MEDICARE, SELFPAY | PROVIDERS: PCP Hospitalist; Visit Provider Orthopaedic Surgery | DX: M25.562 Pain in left knee (principal); Z96.652 Presence of left artificial knee joint | CPT/HCPCS: 99212 ==

== ENCOUNTER 2024-11-11 10:03 | Outpatient (AMB) | payer MEDICARE, SELFPAY ==
[2024-11-11 10:11] VITALS: BP 127/74; PULSE 92; RESP 15; O2SAT 99; BMI 37.0
--- NOTE | 2024-11-11 10:11 | A.OFFVIS_ITS ---
Vital Signs 11/11/24 10:11 Height 5 ft 7 in Weight 236 lb BMI 37.0 BP 127/74 Blood Pressure Location Lt brachial Position Sitting Respiration 15 Pulse 92 Pulse Source Pulse Oximeter Pulse Oximetry (%) 99 Oxygen Delivery Method Room Air Intake Visit Reasons: Sprint removal Allergies tizanidine Allergy (Verified 11/11/24 10:12) Unknown Medication List - Last Reconciled 11/11/24 by Audrey Dick LPN cholecalciferol (vitamin D3) 25 mcg PO DAILY gabapentin 300 mg PO TID hydrochlorothiazide 25 mg (2 x 12.5 mg) PO DAILY meloxicam 15 mg PO DAILY rosuvastatin 10 mg PO DAILY HPI HPI Sprint removal: Details: A 74-year-old female here for removal of her temporary saphenous nerve stimulator. She reports about 50% improvement in her pain symptoms. On exam today: Appears afebrile. Alert and oriented. Mood and affect appropriate. Follows and participates in conversation appropriately. Respiratory effort is unlabored. Able to transition from sit to stand unassisted. Ambulates with bilaterally normal heel strike and toe off. Able to stand and walk on toes and heels. Lead was removed with tip intact. [facility] Medical History (Updated 09/15/24 @ 14:57 by Sameer Mcginnis MD) Sciatic pain Chronic back pain History of colon cancer Hyperlipemia Chronic kidney disease, stage 3a Hypertension Surgical History History of arthroplasty of left knee (03/12/23) History of colectomy Family History Brother Cancer Father Cancer Social History Alcohol intake: current Patient Tobacco Use Status: Former Tobacco user Physical Exam Vital Signs: Last Vital Signs Pulse 92 11/11/24 10:11 Resp 15 11/11/24 10:11 BP 127/74 11/11/24 10:11 Pulse Ox 99 11/11/24 10:11 Oxygen Delivery Method Room Air 11/11/24 10:11 BMI result Body Mass Index 37.0 Assessment & Plan Assessment & Plan (1) 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 Moderate improvement in symptoms. Would like to continue expectant management for now. She will follow-up as needed. 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
== END 2024-11-11 10:33 | disposition home or self-care (01) ==
PROVIDERS: PCP Hospitalist; Visit Provider Internal Medicine
DX: M25.569 Pain in unspecified knee (principal); G89.29 Other chronic pain; Z96.659 Presence of unspecified artificial knee joint
CPT/HCPCS: 99212

== ENCOUNTER → 2024-11-11 10:03 | Outpatient (BNVA) | payer MEDICARE, SELFPAY | PROVIDERS: PCP Hospitalist; Visit Provider Internal Medicine | DX: M25.562 Pain in left knee (principal); G89.29 Other chronic pain; Z96.652 Presence of left artificial knee joint | CPT/HCPCS: 99212 ==

== ENCOUNTER 2025-02-23 10:38 | Outpatient (AMB) | payer MEDICARE, SELFPAY ==
--- NOTE | 2025-02-23 11:06 | HO.NEPHOV_ITS ---
Vital Signs 02/23/25 11:08 Height 5 ft 7 in Weight 225 lb 2 oz BMI 35.3 BP 134/90 H Blood Pressure Location Lt brachial Position Sitting Pulse 78 Pulse Source Pulse Oximeter Pulse Oximetry (%) 97 Oxygen Delivery Method Room Air Intake Visit Reasons: 3 mon follow up-[facility] Mutuel Clerk Required: No Accompanied by: Self / Same As Patient Allergies tizanidine Allergy (Verified 02/23/25 11:08) Unknown HPI Comments Details: Juliette was seen in follow-up of her chronic kidney disease stage 3 and hypertension. She has history of colon cancer status post colectomy 20 years ago. She has history of chronic back and pain. She has been taking nonsteroidal anti-inflammatories for the pain. She denies any hematuria, urinary symptoms, nephrolithiasis. She is not known to have any significant proteinuria. She does not have any chest pain, shortness of breath, proximal nocturnal dyspnea, orthopnea or pedal edema. All other systems have been reviewed and were negative [facility] Medical History (Updated 09/15/24 @ 14:57 by Sameer Mcginnis MD) Sciatic pain Chronic back pain History of colon cancer Hyperlipemia Chronic kidney disease, stage 3a Hypertension Surgical History History of arthroplasty of left knee (03/12/23) History of colectomy Family History Brother Cancer Father Cancer Social History Alcohol intake: current Patient Tobacco Use Status: Former Tobacco user Review of Systems Const All systems reviewed & are unremarkable except as noted in HPI and below Physical Exam Const General: comfortable and no acute distress Orientation/consciousness: patient oriented x3 HEENT Head: Yes normocephalic Mouth: Normal oral and palatal mucosa present Eyes EOM: EOMs intact bilaterally Neck Neck: Yes supple Resp Auscultation: clear to auscultation bilaterally Cardio Jugular venous distension: no JVD Rate: regular rate GI Palpation (GI): Soft to palpation Auscultation: normal bowel sounds General: Yes no CVA tenderness Back/Spine/Pelvis Back: no CVA tenderness Skin General skin exam: no rashes or lesions noted Neuro General: patient oriented x3 and moves all extremities Extrem General: Yes no pedal edema Results Reviewed Nephrology Results: No Data to Display Assessment & Plan Assessment & Plan (1) CKD (chronic kidney disease) stage 3, GFR 30-59 ml/min: Code(s): N18.30 - Chronic kidney disease, stage 3 unspecified Category: Medical Qualifiers: Chronic kidney disease stage 3 subtype: stage 3a (GFR 45-59) Qualified Code(s): N18.31 - Chronic kidney disease, stage 3a (2) Hypertension: Code(s): I10 - Essential (primary) hypertension Category: Medical Qualifiers: Hypertension type: primary hypertension Qualified Code(s): I10 - Essential (primary) hypertension Plan Juliette peck has CKD for some time. Her renal functions have been fairly stable. She had renal ultrasound the past which showed right kidney of 9.5 cm with a normal parenchyma. Her left kidney showed mildly increased cortical echogenicity with normal thickness. She should maintain good hydration and minimize nonsteroidal anti-inflammatories. Her blood pressure is currently at goal with out ACEI. I may restart ACEI with time at a lower dose. She can continue HCTZ 12.5 mg to 25 mg as on a needed basis for ankle swelling. I did not make any other medication changes today. Follow-up blood work ordered. All questions answered. Follow-up appointment given. Orders: Orders Uric Acid 6 Months I10 - Essential (primary) hypertension, N18.31 - Chronic kidney disease, stage 3a Electrolytes 6 Months I10 - Essential (primary) hypertension, N18.31 - Chronic kidney disease, stage 3a Creatinine 6 Months I10 - Essential (primary) hypertension, N18.31 - Chronic kidney disease, stage 3a Blood Urea Nitrogen 6 Months I10 - Essential (primary) hypertension, N18.31 - Chronic kidney disease, stage 3a Calcium 6 Months I10 - Essential (primary) hypertension, N18.31 - Chronic kidney disease, stage 3a Coding Level of Care Code Est Pt Level 4 (62864) Diagnoses Stage 3a chronic kidney disease N18.31 Chronic kidney disease stage 3 subtype: stage 3a (GFR 45-59) Primary hypertension I10 Hypertension type: primary hypertension
[2025-02-23 11:08] VITALS: BP 134/90; PULSE 78; O2SAT 97; BMI 35.3
--- OUTSIDE RECORDS SUMMARY | 2025-02-23 12:15 | XMS_ITS | Clinical Summary ---
Author Organization [facility] Address [address] [place] [address] Phone Care Team Providers Care Bagging Salvager Name Role Phone Paramjit Delaney MD Primary Care Provider [phone] Allergies Active Allergy Reactions Criticality Noted Date Comments Tizanidine 06/20/2023 Medications gabapentin (NEURONTIN) 300 MG capsule Take 300 mg by mouth 3 (three) times a day Active rosuvastatin (CRESTOR) 10 MG tablet Take 10 mg by mouth 1 (one) time each day Active acetaminophen (Tylenol 8 Hour Arthritis Pain) 650 MG 8 hr tablet Take 650 mg by mouth 2 (two) times a day if needed for mild pain Do not crush, chew, or split. Active lisinopril-hydro CHLOROthiazide (PRINZIDE,ZESTOR ETIC) 10-12.5 MG per tablet Take 1 tablet by mouth 1 (one) time each day Active Active Problems Problem Noted Date Diagnosed Date Stage 3a chronic kidney disease 12/10/2022 Hypertension 12/10/2022 Chronic kidney disease 08/08/2021 Essential hypertension 08/08/2021 Hyperglycemia 08/08/2021 Hyperlipidemia 08/08/2021 Body mass index (BMI) 70 or greater, adult 08/08 Pain in left leg 08/08/2021 Pain in limb 08/08/2021 Polyarthritis 08/08/2021 Tobacco user 08/08/2021 Family History Medical History Relation Comments Cancer Brother Cancer Father Hypertension Mother Relation Status Comments Brother Father Mother Social History Tobacco Use Types Packs/Day Years Used Date Smoking Tobacco: Some Days Cigarettes 0.5 53.6 Started: 10/28/1965; Last attempted to quit: 05/26/2019 Smokeless Tobacco: Never Tobacco Cessation:Ready to Q uit: Not Asked; Counseling Given: Not Answered Comments:electric cig Alcohol Use Standard Drinks/Week Comments Yes 1 (1 standard drink = 0.6 oz pur e alcohol) Social only Comments Unknown Sex and Gender Information Value Date Recorded Sex Assigned at Not on file Legal Sex Female 1:34 PM EDT Gender Identity Not on file Sexual Orientation Not on file Last Filed Vital Signs Vital Sign Reading Time Taken Comments Blood Pressure 110/80 06/20/2023 2:57 PM EDT Pulse 83 06/20/2023 2:57 PM EDT Temperature - - Respiratory Rate - - Oxygen Saturation 98% 07/03/2022 1:27 PM EDT Inhaled Oxygen Concentration - - Weight 101 kg (223 lb 6.4 oz) 06/20/2023 2:57 PM EDT Height - - Body Mass Index - - Plan of Treatment Health Maintenance Due Date Last Done Comments Pneumococcal Vaccine: 50+ Ye ars (1 of 2 - PCV) 1967 Influenza Vaccine (Season Ended) 2025 Hepatitis B Vaccine Aged Out No longe r eligible based on patient's age to complete this topic Insurance Medicare [facility] Medicare [facility] Care Teams Bagging Salvager Relationship Specialty Start Date End Date Paramjit Delaney MD [address] [place] [address] PCP - General Internal Medicine 07/25/21
--- OUTSIDE RECORDS SUMMARY | 2025-02-23 12:15 | XMS_ITS | Clinical Summary ---
Author Organization [facility] Address [address] [place] [address] Care Team Providers Care Filling Station Attendant Name Role Phone Paramjit Delaney MD Primary Care Provider [phone] Surgical History Surgery Date Site/Laterality Comments COLECTOMY PROCEDURE:COLECTOMY SECTION PROCEDURE: SECTION TOTAL HIP ARTHROPLASTY Bilateral PROCEDURE:TOTAL HIP ARTHROPLASTY Medical History Medical History Date Comments Familial polyposis DX:Familial p olyposis Social History Tobacco Use Types Packs/Day Years Used Date Smoking Tobacco: Every Day Smokeless Tobacco: Current Alcohol Use Standard Drinks/Week Comments Not Currently 0 (1 standard drink = 0.6 oz pur e alcohol) Comments Unknown Sex and Gender Information Value Date Recorded Sex Assigned at Not on file Legal Sex Female 8:57 PM EST Gender Identity Not on file Sexual Orientation Not on file Obstetrics History Plan of Treatment Health Maintenance Due Date Last Done Comments DTaP,Tdap,and Td Vaccines (1 - Tdap) 1969 Pneumococcal Vaccine: 50+ Years (1 of 2 - PCV) 1967 Zoster Vaccines (1 of 2) 1998 Cholesterol Screening (Lipid Panel) 09/29/2022 Depression Screening 09/29/2022 Falls Risk Assessment 09/29/2022 Hepatitis C Screening 09/29/2022 Osteoporosis Screening (Bone Density Screening) 09/29/2022 Social Influencers of Health Screening 09/29/2022 Medicare Annual Wellness Visit 04/18/2023 04/18/2022 RSV Immunization Adult Patients (1 - 1-dose 75+ series) 2023 COVID-19 Vaccine (2023-2 5 season) 2024 Influenza Vaccine (Season Ended) 2025 08/21/2022, 06/26/2020 HIB Vaccines Aged Out No longer eligi ble based on patient's age to complete this topic HPV Vaccines Aged Out No longer eligi ble based on patient's age to complete this topic Hepatitis A Vaccines Aged Out No long er eligible based on patient's age to complete this topic Hepatitis B Vaccines Aged Out No long er eligible based on patient's age to complete this topic IPV Vaccines Aged Out No longer eligi ble based on patient's age to complete this topic MMR Vaccines Aged Out No longer eligi ble based on patient's age to complete this topic Meningococcal ACWY Vaccine Aged Out N o longer eligible based on patient's age to complete this topic Meningococcal B Vaccine Aged Out No l onger eligible based on patient's age to complete this topic RSV Immunization Patients Under 20 months Aged Out No longer eligible b ased on patient's age to complete this topic Varicella Vaccines Aged Out No longer eligible based on patient's age to complete this topic Care Teams Filling Station Attendant Relationship Specialty Start Date End Date Paramjit Delaney MD [address] [place] [address] PCP - General Internal Medicine 03/13/22
--- OUTSIDE RECORDS SUMMARY | 2025-02-23 12:15 | XMS_ITS ---
Author Organization [facility] Address [address] [place] [address] Care Team Providers Care Maintenance Shop Technician Name Role Phone LAZ AKBAR Primary Care Provider [phone] Lee Johnson Unavailable [phone] Allergies Allergen (clinical drug ingredient) Drug/Non Drug Allergy documented on EMR Reaction Allergy Type Onset Date Status atorvastatin Atorvastatin Calcium Unknown Drug Allergy Active tizanidine tiZANidine HCl Unknown Drug Allergy A ctive REASON FOR VISIT Cataract- 01/20 and 02/10/25 Medications Medication SIG (Take, Route, Frequency, Duration) Notes Start Date End Date Status Rosuvastatin Calcium 10 MG 1 tablet Oral ly Once a day for 90 days Active Gabapentin 300 MG TAKE 1 CAPSULE BY MOUTH THREE TIMES DAILY EVERY DAY for 90 Active traMADol HCl 50 MG TAKE 1 TABLET BY MOUTH 2 TIMES DAILY NEEDED FOR PAIN Orally two times per day for 28 days 05/01/2023 Not-Taking Lisinopril-hydroCHLOROthia zide 10-12.5 MG TAKE 1 TABLET BY MOUTH EVERY DAY for 90 Not-Taking hydroCHLOROthiazide 12.5 MG 1 capsule in the morning Orally Once a day for 30 days Active Meloxicam 1-1/2 tablet daily (given by Dr. Saunders) Active hydrOXYzine HCl 10 MG TAKE 1 TABLET BY MOUTH AT BEDTIME DIRECTED for 30 Active Social History Tobacco Use: Social History [...] Points 0 Interpretation Negative Vital Signs Temperature 97.1 degrees Fahrenheit 01/15/20 25 Oximetry 98 % 01/14/2025 Heart Rate 87 /min 01/14/2025 Blood pressure systolic 130 mm Hg 01/15/20 25 Blood pressure diastolic 72 mm Hg 025 Weight 226.3 lbs 01/14/2025 BMI 35.73 kg/m2 01/14/2025 Height 66.73 in 01/14/2025 Encounters Encounter Location Date Provider Diagnosis [facility] [address] [address] 01/14/2025 Lee Johnson Pre-operative examination Z01.818 Assessments Encounter Date Diagnosis (ICD Code) Assessment Notes Treatment Notes Treatment Clinical Notes Section Notes 01/14/2025 Pre-operative examination (ICD-10 - Z01.818) Ms. Campoverde is a 74 year old lady with hypertension, hyperlipidemia, osteoarthritis and follows up with Dr. Stomr at [facility] for cortisone injections, neuropathy and sees Dr. Saunders for neuropathy and CKD here for pre-op clearance. She has cataract surgery on 01/20 and 02/10 with [facility] with Dr. Mcgowan. Plan as follows: Cardiac assessment. Patient can easily do 4 METS. Blood pressure and exam is within normal limits. EKG is performed in office today with heart rate of Of 78 bpm, sinus rhythm. No ST elevation or depression. No bundle-branch block Pulmonary assessment. Lung exam is normal. No further Intervention NPO on the day of surgery. Take your medications after the surgery. Hold NSAIDs and aspirin 5 days before the procedure. Low risk procedure in a low risk patient. No contraindications for the procedure at this point in time I have rendered the services for this patient under direct supervision of Dr. Akbar, who did not see the patient but was available upon request Plan Of Treatment Next Appt Details Follow Up: Next appointment, Reason: Provider Name:Lee marshall, 04/01/2025 11:00:00 AM, [address] [place] [address], [place], [phone], Progress Notes * Conchita CAMPOVERDEChepe:1950 ( 74 yo F)Acc No.[id number]:01/14/2025 Progress Note Patient:?GUSTAVO Juliette Provider:?Lee Johnson :1950???Age:74 Y???Sex:Female D ate:01/14/2025 Address:[address] [place], [place] [id number] Pcp:LAZ AKBAR Subjective: * Chief Complaints: * ???Cataract- 01/20 and 02/10/ 5 * HPI: ???Internal Medicine:?Ms. Campoverde is a 74 year old lady with hypertension, hyperlipidemia, osteoarthritis and follows up with Dr. Storm at [facility] for cortisone injections, neuropathy and sees Dr. Saunders for neuropathy and CKD here for pre-op clearance. She has cataract surgery on 01/20 and 02/[address] Juan M Leiva at [facility] She is able to do 4 METS without CP, SOB, [place]. She does smoke cigarretts e-cigs. She is not on CPAP. No history of COPD. Not on blood thinners.? She denies any other active issues. * [...] History:? 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 Storm 03/2020left knee pain 03/2023 * Hospitalization/Major Diagno stic Procedure:? * Family History:?Father: dece ased, colon cancer.?Mother: [...] exercises. ?Marital status: single. ?Occupation: Retired. * Medications:?TakinghydrOXYzi ne HCl 10 MG Tablet TAKE 1 TABLET BY MOUTH AT BEDTIME DIRECTED Meloxicam , Notes to Pharmacist: 1-1/2 tablet daily (given by Dr. Saunders)Gabapentin 300 MG Capsule TAKE 1 CAPSULE BY MOUTH THREE TIMES DAILY EVERY DAY Rosuvastatin Calcium 10 MG Tablet 1 tablet Orally Once a day hydroCHLOROthiazide 12.5 MG Capsule 1 capsule in [...] in the morning Orally Once a day Wqw-EsirvxKxflkqphsd-ezetoGKKNXQqefumnsh 10-12.5 MG Tablet TAKE 1 TABLET BY [...] EffectstiZANidine HCl: Allergyno[Allergies Verified] Objective: * Vitals:?Temp: 97.1 F, Oxygen sat %: 98 %, HR: 87 /min, BP: 130/72 mm Hg, Wt: 226.3 lbs, BMI: 35.73 Index, Ht: 66.73 in. * Examination: ???General Examination: ?Psychiatry?Normal.?GENERAL APPEARANCE:?Well developed, well nourished, in no acute distress.?MUSCULOSKELETAL:?Normal.?HEAD:?Normocephalic, atraumatic.?EYES:?Pupils equal, round, reactive to light and accommodation, sclera non-icteric.?EARS:?Normal.?ORAL CAVITY:?Normal.?THROAT:?Clear.?OROPHARYNX?Normal.?SINUSES?Normal.?NECK/THYROID:?Neck supple, full range of motion, no cervical lymphadenopathy.?SKIN:?Warm and dry, no suspicious lesions.?HEART:?Normal.?LUNGS:?Normal.?BREASTS:?__.?ABDOMEN:?Soft, nontender, nondistended, bowel sounds present, normal.?EXTREMITIES:?Reticular veins, bilateral LE.?PERIPHERAL PULSES:?Normal.?NEUROLOGIC:?alert and oriented. No loss of sensations. Reflexes are symmetrical.?FEMALE GENITOURINARY:?__.?MALE GENITOURINARY:?__.?PODIATRIC:?Normal.?Road Advisor? .? Assessment: * Assessment: 1.?Pre-operative examination - Z01.818 (Primary)??? Ms. Campoverde is a 74 year old lady with hypertension, hyperlipidemia, osteoarthritis and follows up with Dr. Storm at [facility] for cortisone injections, neuropathy and sees Dr. Saunders for neuropathy and CKD here for pre-op clearance. She has cataract surgery on 01/20 and 02/10 with [facility] with Dr. Mcgowan. Plan as follows: Cardiac assessment. Patient can easily do 4 METS. Blood pressure and exam is within normal limits. EKG is performed in office today with heart rate of Of 78 bpm, sinus rhythm.? No ST elevation or depression.? No bundle-branch block Pulmonary assessment. Lung exam is normal. No further Intervention NPO on the day of surgery. Take your medications after the surgery. Hold NSAIDs and aspirin 5 days before the procedure. Low risk procedure in a low risk patient. No contraindications for the procedure at this point in time I have rendered the services for this patient under direct supervision of Dr. Akbar, who did not see the patient but was available upon request Plan: * Treatment: * Procedure Codes:? * Follow Up:?Next appointment * * Sign off status: Completed true * Provider:?Lee Johnson Date:?01/15/20 25 Generated for John mercado/Saira/Dorinda on:?02/23/2025 12:15 PM EDT History and Physical Notes * HPI (History of Present Illness) Category Sub-Category Detail Notes Category Not es Internal Medicine Ms. Campoverde is a 74 year old lady with hypertension, hyperlipidemia, osteoarthritis and follows up with Dr. Storm at [facility] for cortisone injections, neuropathy and sees Dr. Saunders for neuropathy and CKD here for pre-op clearance. She has cataract surgery on 01/20 and 02/[address] Juan M Leiva at [facility] She is able to do 4 METS without CP, SOB, [place]. She does smoke cigarretts e-cigs. She is not on CPAP. No history of COPD. Not on blood thinners. She denies any other active issues. Examination [...] Normal Psychiatry Normal OROPHARYNX Normal SINUSES Normal Road Advisor
--- OUTSIDE RECORDS SUMMARY | 2025-02-23 12:15 | XMS_ITS ---
Author Organization [facility] Address [address] [place] [phone] Care Team Providers Care Facility Worker Name Role Phone LAZ AKBAR Primary Care Provider [phone] Lee Johnson [phone] REASON FOR VISIT Cataract January 20 and February 10 2025 Encounters Encounter Location Date Provider Diagnosis [facility] [address] [address] 01/12/2025 Lee Johnson Plan Of Treatment Next Appt Details Provider Name:Lee marshall, 04/01/2025 11:00:00 AM, [address] [place] [address], [place], [address], Progress Notes * Rand CHENB:1950 ( 74 yo F)Acc No.[id number]:01/12/2025 Progress Note Patient:?Juliette CHEN Appointment Provider:Keith Johnson :1950???Age:74 Y???Sex:Female D ate:01/12/2025 Address:[address] [place], [place] [phone] Pcp:LAZ AKBAR Subjective: * Chief Complaints: * ???1. Cataract January 20 and February 10 2025. * Medical History:? Objective: * Vitals:? Assessment: Plan: * Treatment: * Images: * Electronic signature of Prudence Johnson PA-C on 02/23/2025 at 12:15 PM EDT Sign off status: Pending * Appointment Provider:?Lee Rodriguez te:?01/12/2025 Generated for John mercado/Saira/Dorinda on:?02/23/2025 12:15 PM EDT
--- OUTSIDE RECORDS SUMMARY | 2025-02-23 12:16 | XMS_ITS ---
Author Organization [facility] Address [address] [place] [phone] Care Team Providers Care Radio Frequency Technician Name Role Phone BERNYLAZ Burgos Primary Care Provider REASON FOR VISIT refill and EKG request Medications Medication SIG (Take, Route, Frequency, Duration) Notes Start Date End Date Status hydroCHLOROthiazide 12.5 MG 1 capsule in the morning Orally Once a day for 30 days Active Encounters Encounter Location Date Provider Diagnosis [facility] [address] [address] 11/23/2024 LAZ AKBAR Plan Of Treatment Medication Medication Name Sig Start Date Stop Date Notes hydroCHLOROthiazide 12.5 MG 1 capsule in the morning Orally Once a day for 30 days Next Appt Details Provider Name:Doreencash Swati marshall, 04/01/2025 11:00:00 AM, [address] [place] [address], [place], [phone], Progress Notes * Rand CHENB:1950 ( 74 yo F)Acc No.[id number]:11/23/2024 Patient:?Juliette CHEN :1950???Age:74 Y???Sex:Female Address:[address] [place] [phone] * Refills? Refill hydroCHLOROthiazide Capsule, 12.5 MG, Orally, 30, 1 capsule in the morning, Once a day, 30 days, Refills=5 * true * Date:? Generated for John mercado/Saira/Shelbyitting on:?02/23/2025 12:15 PM EDT
--- OUTSIDE RECORDS SUMMARY | 2025-02-23 12:16 | XMS_ITS | Data Portability ---
Author Organization [facility], [facility] Address [address] [place] [address] Care Team Providers Care Customer Servicer Name Role Phone KAREEM AKBAR Referring Provider [phone] LAZ AKBAR Primary Care Provider [phone] Assessment Encounter Date Assessment Date Assessment LastModified by Organization Details LastModified Time 05/04/2024 05/04/2024 Pt tolerating treatment well, able to complete full program without progressing pain. Pt fatigued quickly with hip strengthening, weakness in hip abductors and ERs observed with strengthening. Compensation observed with hip flexors. Unable to complete SLR. Continue with POC, progress as tolerated. [email or web address] Not available 05/04/2024 14:15:21 Plan of Treatment Reminders Order Date Submit Date Provider Last Modified By Organization Details Last Modified Time Details Appointments RECHECK 15 2024 11:00A Juani Polanco PA-C Not available Not available Not available Lab None recorded. Referral None recorded. Procedures None recorded. Surgeries None recorded. Imaging None recorded. Medication Orders acetamino phen 300 mg-codein e 30 mg tablet 2023 024 [id number], [address], [place], [phone], 05/06/2024 11:39:29 Patient TargetsNo targets recorded. Patient InstructionsNo instructions recorded. Reason for Referral None Reported. Results Created Date Observation Date Name Description Value Unit Range Abnormal Flag Note LastModifiedBy Organization Detail LastModifiedTime 06/27/20 24 04/26/2020 imagi ng/di agnos tic resul t No observ ation record ed. [email or web address] Not Available 05/30 05:13:34 Result Notes None recorded. Problems Name Problem SNOMED Code Status Onset Date Resolution Date Notes Provider Name and Address Organization Details Recorded Time No complaints 978490745 Active Status: 'I'; Not Available [facility] 4 09:12:19 Idiopathic osteoarthri tis 320311939 Active 2016 Problem Code: M17.11; Problem Code Type: ICD-10; Status: 'A'; Not Available [facility] 4 10:56:31 Soft tissue swelling of knee joint 717302908 Active 2023 PALMER ESPAÑA [facility] 4 16:57:58 Problem Notes None recorded. Procedures Surgical History Date Name Laterality Status Provider Name and Address Organization Details Recorded Time 5 Knee Kenalog 1cc L/R completed Rene Polanco PA-C [address], [place], [address], [facility] 02/04/2025 08:22:54 5 Knee Kenalog 1cc L/R completed TOMAS TangC [address], [place], [address], [facility] 11/04/2024 08:00:17 4 Sports Knee 4&1 completed Rene Polanco PA-C [address], [place], [address], [facility] 08/03/2024 08:03:33 4 Sports Knee 4&1 completed Rene Polanco PA-C [address], [place], [address], [facility] 05/07/2024 07:36:42 4 86101 Therapeutic Exercise (1:1) completed Brooke Vargehse DPT [address], [place], [address], [facility] 05/04/2024 14:09:55 4 82156 Therapeutic Exercise (1:1) completed Juve Fernandez PTA [address], [place], [address], [facility] 04/24/2024 15:53:00 4 02832 Therapeutic Exercise (1:1) completed Juve Fernandez PTA [address], [place], [address], [facility] 04/21/2024 13:05:09 4 55526 Therapeutic Exercise (1:1) completed Brooke Varghese DPT [address], [place], [address], [facility] 04/16/2024 14:00:05 4 68158: Low complexity PT Eval completed Brooke Varghese DPT [address], [place], [address], [facility] 04/16/2024 14:00:11 4 G8419 BMI Outside Normal Parameters, F/U not Documented completed Brooke Varghese DPT [address], [place], [address], [facility] 04/16/2024 13:59:20 4 G8427 Current Medication Documented completed Brooke Varghese DPT [address], [place], [address], [facility] 04/16/2024 13:59:24 4 Sports Knee 4&1 completed Rene Polanco PA-C [address], [place], [address], [facility] 02/10/2024 07:32:18 Imaging Results Imaging Date Name Status LastModified by Organiz ation Details LastModified Time 04/26/2020 imaging/diag nostic result completed [email or web address] Information not available 06/27/2024 05:13:34 Procedure Notes None recorded. Medical Equipment None Reported. Allergies Allergen ID Allergen Name Allergen Category Reaction Reaction Severity Criticality Documentation Date Start Date Code Code System Note Provider Name and Address Organization Details Recorded Time 035310 tizanidin e medicatio n Not available Not available Not available 03/11/2024 92313 RxNorm JUMA mcgraw [place] - [facility] 14:59:24 Medications Name Sig Start Date Stop Date Status Note LastModified by Organization Details LastModified Time diclofenac 3 % topical gel 04/02 completed Not Available Not Available Not Available tizanidine 4 mg tablet TAKE 1 TABLET BY MOUTH THREE TIMES DAILY NEEDED FOR PAIN OR SPASM 04/02 completed Not Available Not Available Not Available meloxicam 15 mg tablet TAKE 1 TABLET BY MOUTH EVERY DAY active Not Available Not Available No t Available acetaminoph en 300 mg-codeine 30 mg tablet TAKE 1 TABLET BY MOUTH EVERY 4 TO 6 HOURS FOR 7 DAYS active Not Available Not Available No t Available tramadol 50 mg tablet TAKE 1 TABLET BY MOUTH TWICE DAILY NEEDED FOR PAIN 04/02 completed Not Available Not Available Not Available hydromorpho ne 2 mg tablet TAKE 1 TO 2 TABLETS BY MOUTH EVERY 4 HOURS NEEDED FOR SEVERE PAIN 04/02 completed Not Available Not Available Not Available aspirin 325 mg tablet,rachel yed release TAKE 1 TABLET BY MOUTH TWICE DAILY FOR 30 DAYS MEDICATIO N TO BE STARTED AFTER SURGERY 04/02 completed Not Available Not Available Not Available diazepam 2 mg tablet TAKE 1 TABLET BY MOUTH THREE TIMES DAILY NEEDED 04/02 completed Not Available Not Available Not Available pantoprazol e 40 mg tablet,rachel yed release TAKE 1 TABLET BY MOUTH DAILY RX FOR AFTER SURGERY 04/02 completed Not Available Not Available Not Available hydrochloro thiazide 12.5 mg capsule TAKE 1 CAPSULE BY MOUTH DAILY IN THE MORNING active Not Available Not Available No t Available gabapentin 300 mg capsule TAKE 1 CAPSULE BY MOUTH THREE TIMES DAILY EVERY DAY active Not Available Not Available No t Available lisinopril 10 mg-hydrochl orothiazide 12.5 mg tablet TAKE 1 TABLET BY MOUTH EVERY DAY active Not Available Not Available No t Available rosuvastati n 10 mg tablet TAKE 1 TABLET BY MOUTH DAILY active Not Available Not Available No t Available Aleve 04/02 completed Not Available Not Available Not Available hydrochloro thiazide 12.5 mg tablet TAKE 2 TABLETS BY MOUTH DAILY active Not Available Not Available No t Available D3 DOTS active Not Available Not Avail able Not Available Vitals Date Recorded Body height Body mass index (BMI) Body weight Provider Name and Address Organization Details Last Updated DateTime 05/06/2024 170.18 cm 35.4 kg/m2 406985.88 g Josie Lao [facility] 05/06/2024 11:25:16 Date Recorded Body height Provider Name an d Address Organization Details Last Updated DateTime 08/03/2024 170.18 cm JOSIE DEMARCO [facility] 08/03/2024 10:12:17 Date Recorded Body height Provider Name an d Address Organization Details Last Updated DateTime 11/04/2024 170.18 cm JOSIE DEMARCO [facility] 11/04/2024 10:03:32 Date Recorded Body height Provider Name an d Address Organization Details Last Updated DateTime 02/03/2025 170.18 cm JOSIE DEMARCO [facility] 02/03/2025 10:54:58 Social History None recorded. Functional Status None recorded. Mental Status None recorded. Family History Nothing Reported. Medical History No medical history recorded. Gynecological HistoryNo gynecological history recorded. Obstetrics History GPAL:G 0 P 0 0 0 0 Past Encounters Encounter ID Performer Location Encounter Start Date Encounter Closed Date Diagnosis/Indication Diagnosis SNOMED-CT Code Diagnosis ICD10 Code Diagnosis Note [id number] YUNG [facility] [address] [facility] [place] [address] 02/10/2024 10:56:37 02/10/2024 12:33:07 Osteoarthritis of right knee joint 5073973760 29124 M17.11 History of left total knee replacement 2320375183 376837 Z96.303 [id number] YUNG Zhou 3rd floor [address] [facility] [place] [address] 03/11/2024 14:37:20 04/04/2024 15:20:47 History of left total knee replacement 6745188210 181737 Z96.652 Pain of le ft knee joint 0977766773 63462 M25.562 Patient has chronic and persistent left knee pain status post left total knee arthroplas ty with acute onset of Pez anserine bursitis. She does have some mild improvemen t in her chronic symptoms while wearing the hinged knee brace but it seems to be rubbing over the pes bursa causing increased pes bursitis related symptoms. Recommende d topical anti-infla mmatory cream such as Voltaren gel to be applied 3-4 times per day to the affected area. She does admit that she has been taking meloxicam and Aleve simultaneo usly. Strongly discourage d her from doing so. Her responses that she has been doing this for 8 years. She would also like to follow back up with Dr. Storm to discuss potential for a polyethyle ne swap due to her mild laxity and chronic pain. Reassuranc e provided that she has no evidence of hardware failure or loosening on radiograph s and no evidence of infectious changes based on her laboratory data. Further discussion about potential treatment options can be had with Dr. Storm at her follow-up visit. Also recommende d formal physical therapy for quad strengthen ing, hamstring stretching and soft tissue modalities . Pes anseri nus bursitis of left knee 4774476473 919728 M70.52 [id number] [facility] [address] [place] [address] 03/16/2024 10:23:08 04/07/2024 10:38:32 Pain of left knee joint 8407236590 35004 M25.042 [id number] MD Bhupendra Starks Clinical [address] [place] [address] 04/02/2024 15:31:24 05/01/2024 15:31:11 Soft tissue swelling of knee joint 370607489 M25.469 Pes anseri nus bursitis of left knee 0073972388 788589 M70.52 [id number] MD Bhupendra Starks PT [address] [place] [address] 04/16/2024 13:53:59 04/16/2024 14:58:02 Soft tissue swelling of knee joint 882121135 M25.686 [id number] NENO Dominguez PT [address] [place] [address] 04/22/2024 13:26:44 04/22/2024 15:30:11 Soft tissue swelling of knee joint 002826732 M25.479 [id number] NENO Dominguez PT [address] [place] [address] 04/27/2024 13:01:12 04/27/2024 14:02:18 Soft tissue swelling of knee joint 998687338 M25.291 [id number] NENO Dominguez PT [address] [place] [address] 05/04/2024 12:37:55 05/04/2024 14:15:39 Soft tissue swelling of knee joint 798590040 M25.504 [id number] YUNG Tang [address] [place] [address] 05/06/2024 10:42:34 05/25/2024 15:42:16 Pain of left knee joint 6367073377 39138 M25.562 Osteoarthr itis of right knee joint 0626173685 34469 M17.11 [id number] YUNG Tang Clinical [address] [place] [address] 08/03/2024 10:04:57 08/26/2024 11:02:36 Osteoarthritis of right knee joint 2613675878 92479 M17.11 [id number] YUNG Tang Clinical [address] [place] [address] 11/04/2024 09:56:12 11/17/2024 08:35:36 Osteoarthritis of right knee joint 9985502897 81071 M17.11 [id number] YUNG Tang [facility] [address] [place] [address] 02/03/2025 10:53:30 02/16/2025 10:52:11 Osteoarthritis of right knee joint 6046108626 02795 M17.11 Health Concerns Section Related Observation LastModified by Organization Detai ls LastModified Time None Recorded Concern Status LastModified by Organization Details LastModified Time None Recorded Advance Directives Directive None Recorded Payers Encounter Date Sequence Insurance Name Policy Number Policy Posada Covered Member ID Posada Member ID Guarantor Name 05/04/2024 1 [place] [employer] Juliette A Campoverde [id number] Juliette A Campoverde 05/04/2024 2 [employer] OPTIONS (MEDICARE SUPPLEMENT) Juliette A Campoverde [id number] Juliette A Campoverde 05/06/2024 1 [place] Juliette A Campoverde [id number] Juliette A Campoverde 05/06/2024 2 [employer] OPTIONS (MEDICARE SUPPLEMENT) Juliette A Campoverde [id number] Juliette A Campoverde 08/03/2024 1 [place] Juliette A Campoverde [id number] Juliette A Campoverde 08/03/2024 2 [employer] OPTIONS (MEDICARE SUPPLEMENT) Juliette A Campoverde [id number] Juliette A Campoverde 11/04/2024 1 [place] Juliette A Campoverde [id number] Juliette A Campoverde 11/04/2024 2 [employer] OPTIONS (MEDICARE SUPPLEMENT) Juliette A Campoverde [id number] Juliette A Campoverde 02/03/2025 1 [place] Juliette A Campoverde [id number] Juliette A Campoverde 02/03/2025 2 [employer] OPTIONS (MEDICARE SUPPLEMENT) Juliette A Campoverde [id number] Juliette A Campoverde Notes Date Note Type Note Provider Name and Address Organization Details Recorded Time 05/04/2024 text/html Pt reports an increase in pain coming into therapy today, spent all weekend playing with grandchildren so extra sore. 01/04 pain, with L knee swelling. Brooke Varghese, DPT [address] [facility] [address], [place], [address], [place] - [facility] 05/04/2024 14:15:33 05/06/2024 text/html I am seeing the patient today under the supervision of {{Libby* Raymond }} who was available but who did not see the patient. Chief Complaint The patient presents today for recheck of {{left right*}} knee osteoarthritis. Is known to have knee arthritis treated conservatively to this point with {{1 2 3*}} months relief of symptoms. Presents today for recheck secondary to increased knee pain. Past Medical/Surgical History Reviewed today, otherwise unchanged per intake sheet. Physical Findings General Appearance: ? ? ? Well developed. ? ? ? In no acute distress. Musculoskeletal System: Knee: General/bilateral: ? ? ? No laxity of the knee. Right Knee: ? Medial aspect was tender on palpation. ? ? ? No erythema. ? ? ? No warmth. Left Knee: ? Medial aspect was tender on palpation. ? ? ? No erythema. ? ? ? No warmth. Musculoskeletal Scales: General/bilateral: ? Mild effusion noted. Neurological: ? ? ? Oriented to time, place, and person. Gait And Stance: ? ? ? Normal. Psychiatric: ? ? ? Mood was appropriate to the affect. Left knee 0-120 degrees of flexion with discomfort. Assessment ? Osteoarthritis of knee - Plan More than 50% of todays visit was spent on direct patient counseling regarding their knee condition and treatment options both operative with knee arthroplasty and non-operative, including oral medications and injection therapy. After discussion, my clinical decision was to go forth with an intra-articular cortisone injection. After explaining risks and benefits, under meticulous aseptic technique, the knee was injected with, 1cc of Kenalog 40mgs and 4 cc of Marcaine 1/4%. They tolerated the procedures well. Post injection precautions reviewed. Follow up with us in 3 months for further discussion of total knee replacement surgery versus continued conservative treatment. Rene Polanco PA-C [address] [place] [address] [address], [place], [address], [facility] - [facility] 05/07/2024 07:37:11 08/03/2024 text/html I am seeing the patient today under the supervision of {{Libby* Raymond }} who was available but who did not see the patient. Chief Complaint The patient presents today for recheck of {{left right*}} knee osteoarthritis. Is known to have knee arthritis treated conservatively to this point with {{1 2 3*}} months relief of symptoms. Presents today for recheck secondary to increased knee pain. Past Medical/Surgical History Reviewed today, otherwise unchanged per intake sheet. Physical Findings General Appearance: ? ? ? Well developed. ? ? ? In no acute distress. Musculoskeletal System: Knee: General/bilateral: ? ? ? No laxity of the knee. Right Knee: ? Medial aspect was tender on palpation. ? ? ? No erythema. ? ? ? No warmth. Left Knee: ? Medial aspect was tender on palpation. ? ? ? No erythema. ? ? ? No warmth. Musculoskeletal Scales: General/bilateral: ? Mild effusion noted. Neurological: ? ? ? Oriented to time, place, and person. Gait And Stance: ? ? ? Normal. Psychiatric: ? ? ? Mood was appropriate to the affect. Left knee 0-120 degrees of flexion with discomfort. Assessment ? Osteoarthritis of knee - Plan More than 50% of todays visit was spent on direct patient counseling regarding their knee condition and treatment options both operative with knee arthroplasty and non-operative, including oral medications and injection therapy. After discussion, my clinical decision was to go forth with an intra-articular cortisone injection. After explaining risks and benefits, under meticulous aseptic technique, the knee was injected with, 1cc of Kenalog 40mgs and 4 cc of Marcaine 1/4%. They tolerated the procedures well. Post injection precautions reviewed. Follow up with us in 3 months for further discussion of total knee replacement surgery versus continued conservative treatment. Rene Polanco PA-C [address] [facility] [address], [place], [address], [facility] - [facility] 08/03/2024 12:19:17 11/04/2024 text/html I am seeing the patient today under the supervision of {{Libby* Raymond }} who was available but who did not see the patient. Chief Complaint The patient presents today for recheck of {{left right*}} knee osteoarthritis. Is known to have knee arthritis treated conservatively to this point with {{1 2 3*}} months relief of symptoms. Presents today for recheck secondary to increased knee pain. Past Medical/Surgical History Reviewed today, otherwise unchanged per intake sheet. Physical Findings General Appearance: ? ? ? Well developed. ? ? ? In no acute distress. Musculoskeletal System: Knee: General/bilateral: ? ? ? No laxity of the knee. Right Knee: ? Medial aspect was tender on palpation. ? ? ? No erythema. ? ? ? No warmth. Left Knee: ? Medial aspect was tender on palpation. ? ? ? No erythema. ? ? ? No warmth. Musculoskeletal Scales: General/bilateral: ? Mild effusion noted. Neurological: ? ? ? Oriented to time, place, and person. Gait And Stance: ? ? ? Normal. Psychiatric: ? ? ? Mood was appropriate to the affect. Left knee 0-120 degrees of flexion with discomfort. Assessment ? Osteoarthritis of knee - Plan More than 50% of todays visit was spent on direct patient counseling regarding their knee condition and treatment options both operative with knee arthroplasty and non-operative, including oral medications and injection therapy. After discussion, my clinical decision was to go forth with an intra-articular cortisone injection. After explaining risks and benefits, under meticulous aseptic technique, the knee was injected with, 1cc of Kenalog 40mgs and 4 cc of Marcaine 1/4%. They tolerated the procedures well. Post injection precautions reviewed. Follow up with us in 3 months for further discussion of total knee replacement surgery versus continued conservative treatment. Rene Polanco PA-C [address] [facility] [address], [place], [address], [facility] - [facility] 11/04/2024 12:20:59 02/03/2025 text/html I am seeing the patient today under the supervision of {{Libby* Raymond }} who was available but who did not see the patient. Chief Complaint The patient presents today for recheck of {{left right*}} knee osteoarthritis. Is known to have knee arthritis treated conservatively to this point with {{1 2 3*}} months relief of symptoms. Presents today for recheck secondary to increased knee pain. Past Medical/Surgical History Reviewed today, otherwise unchanged per intake sheet. Physical Findings General Appearance: ? ? ? Well developed. ? ? ? In no acute distress. Musculoskeletal System: Knee: General/bilateral: ? ? ? No laxity of the knee. Right Knee: ? Medial aspect was tender on palpation. ? ? ? No erythema. ? ? ? No warmth. Left Knee: ? Medial aspect was tender on palpation. ? ? ? No erythema. ? ? ? No warmth. Musculoskeletal Scales: General/bilateral: ? Mild effusion noted. Neurological: ? ? ? Oriented to time, place, and person. Gait And Stance: ? ? ? Normal. Psychiatric: ? ? ? Mood was appropriate to the affect. Left knee 0-120 degrees of flexion with discomfort. Assessment ? Osteoarthritis of knee - Plan More than 50% of todays visit was spent on direct patient counseling regarding their knee condition and treatment options both operative with knee arthroplasty and non-operative, including oral medications and injection therapy. After discussion, my clinical decision was to go forth with an intra-articular cortisone injection. After explaining risks and benefits, under meticulous aseptic technique, the knee was injected with, 1cc of Kenalog 40mgs and 4 cc of Marcaine 1/4%. They tolerated the procedures well. Post injection precautions reviewed. Follow up with us in 3 months for further discussion of total knee replacement surgery versus continued conservative treatment. Rene Polanco PA-C [address] [facility] [address], [place], [address], [place] - [facility] 02/04/2025 08:23:15 OBGyn Episode No OBEpisode recorded.
--- OUTSIDE RECORDS SUMMARY | 2025-02-23 12:16 | XMS_ITS | Patient Health Record ---
Author Organization [facility] Address [address] [place] [address] [address] [place] [address] Care Team Providers Care Hand Rounder Name Role Phone LAZ AKBAR Primary Care Provider [phone] Lee Johnson Unavailable [phone] Allergies Allergen (clinical drug ingredient) Drug/Non Drug Allergy documented on EMR Reaction Allergy Type Onset Date Status atorvastatin Atorvastatin Calcium Unknown Drug Allergy Active tizanidine tiZANidine HCl Unknown Drug Allergy A ctive Results Component Value Reference Range Notes Comp. Metabolic Panel (14)-3 Reviewed date:08/24/2024 12:53:54 PM Interpretation: Performing Lab:[facility], [address] [place] [address], [place], Phone - [phone], Director - Tim Notes/Report: Glucose 102 70-99 [...] 0-40 IU/L ALT (SGPT) 13 0-32 IU/L Lipid Panel-[id number] Reviewed date:08/24/2024 04:39:24 PM Interpretation: Performing Lab:[facility] [place], [address] [place] [address], Phone - [phone], Director - Tim Notes/Report: Cholesterol, Total 212 100-199 mg/dL Triglycerides 141 0-149 mg/dL HDL Cholesterol 77 >39 mg/dL VLDL Cholesterol Linus 24 5-40 mg/dL LDL Chol Calc ([facility]) 111 0-99 mg/dL Albumin/Creatinine Ratio,Uri ne-[id number] Reviewed date:08/23/2024 09:18:44 AM Interpretation: Performing Lab:[facility] [place], [address] [facility], [place], Phone - [phone], Director - Tim Notes/Report: Creatinine, Urine 178.2 Not Estab. mg/dL Albumin, Urine 9.7 Not Estab. ug/mL Alb/Creat Ratio 5 0-29 mg/g creat Normal: 0 - 29 Moderately increased: 30 - 300 Severely increased: >300 Hemoglobin [id number]-[id number] Reviewed date:08/23/2024 09:19:38 AM Interpretation: Performing Lab:[facility] [place], [address] [facility], [place], Phone - [phone], Director - MDMercy Notes/Report: Hemoglobin A1c 5.6 4.8-5.6 % . Prediabetes: 5.7 - 6.4 Diabetes: >6.4 Glycemic control for adults with diabetes: <7.0 Reason For Referral No Information Medications Medication [...] MOUTH AT BEDTIME DIRECTED for 30 Active traMADol HCl 50 MG TAKE 1 TABLET BY MOUTH 2 TIMES DAILY NEEDED FOR PAIN Orally two times per day for 28 days 05/01/2023 Not-Taking Lisinopril-hydroCHLOROthia zide 10-12.5 MG TAKE 1 TABLET BY MOUTH EVERY DAY for 90 Not-Taking hydroCHLOROthiazide 12.5 MG 1 capsule in the morning Orally Once a day for 30 days Active Immunizations Vaccine Route Administration Date Status [...] W/U Status Risk Notes Problem Tobacco user (626393131) Nicotine dependence, cigarettes, uncomplicated (F17.210) Active confirmed Problem Insomnia (148292273) Insomnia, unspecified (G47.00) Active confirmed Problem Essential hypertension (73595270) Essential (primary) hypertension (I10) Active confirmed Problem Disorder of skin AND/OR subcutaneous tissue (16475201) Disorder of the skin and subcutaneous tissue, unspecified (L98.9) Active confirmed Problem Osteoarthritis (262994048) Polyosteoarthriti s, unspecified (M15.9) Active confirmed Problem Osteoarthritis of knee (666710509) Bilateral primary osteoarthritis of knee (M17.0) Active confirmed Problem Hyperglycemia (96868578) Hyperglycemia, unspecified (R73.9) Active confirmed Problem Hyperlipidemia (26935085) Hyperlipidemia, unspecified (E78.5) Active confirmed Problem Chronic kidney disease stage 3B (disorder) (317504556) Chronic kidney disease, stage 3b (N18.32) Active confirmed Problem Age-related osteoporosis (474506206) Osteoporosis without current pathological fracture, unspecified osteoporosis type (M81.0) Active confirmed Vital Signs Heart Rate 87 /min 01/14/2025 Temperature 97.1 degrees Fahrenheit 01/14/2025 Oximetry 98 % 01/14/2025 Blood pressure diastolic 72 mm Hg 01/14/2025 Height 66.73 in 01/14/2025 Blood pressure systolic 130 mm Hg 01/14/2025 Weight 226.3 lbs 01/14/2025 BMI 35.73 kg/m2 01/14/2025 Encounters Encounter Location Date Provider Diagnosis [address] [place] [address] 03/03/2024 LAZ AKBRA Essential (primary) hypertension I10 ; Hyperlipidemia, unspecified E78.5 ; Hyperglycemia, unspecified R73.9 ; Nicotine dependence, cigarettes, uncomplicated F17.210 ; Chronic kidney disease, stage 3b N18.32 and Polyosteoarthritis, unspecified M15.[address] [place] [address] 09/09/2024 LAZ ARRIETA Encounter for genera l adult medical examination without abnormal findings Z00.00 ; Essential (primary) hypertension I10 ; Hyperlipidemia, unspecified E78.5 ; Chronic kidney disease, stage 3b N18.32 and Hyperglycemia, unspecified R73.[address] [place] [address] 10/01/2024 Lee Johnson Essential (primary) hypertension I10 [address] [place] [address] 01/14/2025 Lee Johnson Pre-operative examination Z01.[address] [address] 11/23/2024 NESBITT GUL Assessments Encounter Date Diagnosis (ICD Code) Assessment Notes Treatment Notes Treatment Clinical Notes Section Notes 03/03/2024 Essential (primary) hypertension (ICD-10 - I10) Ms. Campoverde is a 73 year old lady with hypertension, hyperlipidemia, osteoarthritis and follows up with Dr. Storm at [facility] for cortisone injections, neuropathy and sees Dr. [...] this note under HIPAA compliance and under [place] law mandated for scribe services. Patient aware [...] and follows up with Dr. Storm at [facility] for cortisone injections, neuropathy and sees Dr. [...] cancer screening. Eye screening. She sees her openstack developer regularly. Dental screening. She sees dentist regularly. [...] this note under HIPAA compliance and under [place] law mandated for scribe services. Patient aware [...] and follows up with Dr. Storm at [facility] for cortisone injections, neuropathy and sees Dr. [...] the patient but was available upon request 01/14/2025 Pre-operative examination (ICD-10 - Z01.818) Ms. Campoverde is a 74 year old lady with hypertension, hyperlipidemia, osteoarthritis and follows up with Dr. Storm at [facility] for cortisone injections, neuropathy and sees Dr. Saunders for neuropathy and CKD here for pre-op clearance. She has cataract surgery on 01/20 and 02/10 with [facility] with Dr. Mcgowan. Plan as follows: Cardiac [...] the patient but was available upon request 09/09/2024 Essential (primary) hypertension (ICD-10 - I10) Ms. Campoverde is a 74 year old lady with hypertension, hyperlipidemia, osteoarthritis and follows up with Dr. Storm at [facility] for cortisone injections, neuropathy and sees Dr. [...] cancer screening. Eye screening. She sees her openstack developer regularly. Dental screening. She sees dentist regularly. [...] this note under HIPAA compliance and under [place] law mandated for scribe services. Patient aware [...] and follows up with Dr. Storm at [facility] for cortisone injections, neuropathy and sees Dr. [...] this note under HIPAA compliance and under [place] law mandated for scribe services. Patient aware [...] and follows up with Dr. Storm at [facility] for cortisone injections, neuropathy and sees Dr. [...] cancer screening. Eye screening. She sees her openstack developer regularly. Dental screening. She sees dentist regularly. [...] this note under HIPAA compliance and under [place] law mandated for scribe services. Patient aware [...] and follows up with Dr. Storm at [facility] for cortisone injections, neuropathy and sees Dr. [...] this note under HIPAA compliance and under [place] law mandated for scribe services. Patient aware [...] and follows up with Dr. Storm at [facility] for cortisone injections, neuropathy and sees Dr. [...] cancer screening. Eye screening. She sees her openstack developer regularly. Dental screening. She sees dentist regularly. [...] this note under HIPAA compliance and under [place] law mandated for scribe services. Patient aware [...] and follows up with Dr. Storm at [facility] for cortisone injections, neuropathy and sees Dr. Saunedrs for neuropathy and CKD here for follow [...] this note under HIPAA compliance and under [place] law mandated for scribe services. Patient aware [...] and follows up with Dr. Storm at [facility] for cortisone injections, neuropathy and sees Dr. [...] cancer screening. Eye screening. She sees her openstack developer regularly. Dental screening. She sees dentist regularly. [...] this note under HIPAA compliance and under [place] law mandated for scribe services. Patient aware [...] and follows up with Dr. Storm at [facility] for cortisone injections, neuropathy and sees Dr. [...] this note under HIPAA compliance and under [place] law mandated for scribe services. Patient aware of service. Verbal consent and written consent taken from the patient. Patient understands and verbalizes understanding of the scribes services and all questions answered regarding scribes services. Patient agrees to use of scribes services. 03/03/2024 Polyosteoarthrit is, unspecified (ICD-10 - M15.9) Ms. Campoverde is a 73 year old lady with hypertension, hyperlipidemia, osteoarthritis and follows up with Dr. Storm at [facility] for cortisone injections, neuropathy and sees Dr. [...] this note under HIPAA compliance and under [place] law mandated for scribe services. Patient aware [...] METABOLIC PANEL 04/18/2022 LIPID PANEL 04/18/2022 Hemoglobin [id number] 09/09/2024 Albumin/Creatinine Ratio,Urine-649060 Lipid Panel-[id number] 09/09/2024 Comp. Metabolic Panel [id number] 2023 Next Appt Details Provider Name:Lee marshall, 04/01/2025 11:00:00 AM, [address] [address], [place], [address], Insurance Providers Payer Name Payer Address Payer Phone Subscriber Number Group Number Insured Name Patient Relationship to Insured Coverage Start Date Coverage End Date Medicare [address] [place] [address] [id number] Conchita Campoverdea Self - patient is the insured 3 [facility] [address] [place] [address] [id number] Conchita Campoverdea Self - patient is the insured 6 [...]
== END 2025-02-23 11:37 | disposition home or self-care (01) ==
LOC: HO.HKAS 10:39
PROVIDERS: PCP Hospitalist; Visit Provider Internal Medicine Nephrology
DX: N18.31 Chronic kidney disease, stage 3a (principal); I10 Essential (primary) hypertension
CPT/HCPCS: 99214

== ENCOUNTER → 2025-02-23 10:38 | Outpatient (BNVA) | payer MEDICARE, SELFPAY | PROVIDERS: PCP Hospitalist; Visit Provider Internal Medicine Nephrology | DX: I12.9 Hypertensive chronic kidney disease with stage 1 through stage 4 chronic kidney disease, or unspecified chronic kidney disease (principal); N18.31 Chronic kidney disease, stage 3a; Z85.038 Personal history of other malignant neoplasm of large intestine | CPT/HCPCS: 99212 ==

== ENCOUNTER 2025-03-09 09:40 | Outpatient (REF) | payer MEDICARE, SELFPAY ==
--- NOTE | ~2025-03-09 | XR_ITS ---
EXAMINATION: XR KNEE, LEFT CLINICAL INFORMATION: M25.562 - Pain in left knee COMPARISON: August 05, 2024. TECHNIQUE: AP lateral and sunrise view of the left knee. FINDINGS: There is a metallic prosthesis with a femoral and tibial component well-seated in the osseous structures. There is cement in the tibial component. There is slight loosening along the cement component and the distal metaphysis of the femoral component. No gross malalignment. Osteopenia versus osteoporosis. XR/XR knee LT 3V IMPRESSION: Total left knee arthroplasty prosthesis with the likely early loosening. Electronically signed by: Lon Yee MD 03/09/2025 11:52 AM EDT
--- OUTSIDE RECORDS SUMMARY | 2025-03-10 10:17 | XMS_ITS | Clinical Summary ---
Author Organization [facility] Address [address] [place] [address] Phone Care Team Providers Care News Internship Name Role Phone Paramjit Delaney MD Primary Care Provider [phone] Allergies Active Allergy Reactions Criticality Noted Date [...] age to complete this topic Insurance Medicare [facility] Medicare [facility] Care Teams News Internship Relationship Specialty Start Date End Date Paramjit Delaney MD [address] [place] [address] PCP - General Internal Medicine 07/25/21
--- OUTSIDE RECORDS SUMMARY | 2025-03-10 10:17 | XMS_ITS | Clinical Summary ---
Author Organization [facility] Address [address] [place] [address] Care Team Providers Care Blender Machine Operator Name Role Phone Paramjit Delaney MD Primary Care Provider [phone] Surgical History Surgery Date Site/Laterality Comments COLECTOMY [...] age to complete this topic Care Teams Blender Machine Operator Relationship Specialty Start Date End Date Paramjit Delaney MD [address] [place] [address] PCP - General Internal Medicine 03/13/22
--- OUTSIDE RECORDS SUMMARY | 2025-03-10 10:17 | XMS_ITS ---
Author Organization [facility] Address [address] [place] [address] Care Team Providers Care Cuff Matcher Name Role Phone LAZ AKBAR Primary Care Provider Lee Johnson [phone] REASON FOR VISIT Cataract January 20 and February 10 2025 Encounters Encounter Location Date Provider Diagnosis [facility] [address] [address] 01/12/2025 Lee Johnson Plan Of Treatment Next Appt Details Provider Name:Lee marshall, 04/01/2025 11:00:00 AM, [address] [place] [address], [place], [address], Progress Notes * Rand CHENB:1950 ( 74 yo F)Acc No.[id number]:01/12/2025 Progress Note Patient:?Juliette CHEN Appointment Provider:Keith Johnson :1950???Age:74 Y???Sex:Female D ate:01/12/2025 Address:[address] [place], [place] [address] Pcp:LAZ AKBAR Subjective: * Chief Complaints: * ???1. Cataract January 20 and February 10 2025. * Medical History:? Objective: * Vitals:? Assessment: Plan: * Treatment: * Images: * Electronic signature of Prudence Johnson PA-C on 03/10/2025 at 10:17 AM EDT Sign off status: Pending * Appointment Provider:?Lee Rodriguez te:?01/12/2025 Generated for oJhn mercado/Saira/Dorinda on:?03/10/2025 10:17 AM EDT
--- OUTSIDE RECORDS SUMMARY | 2025-03-10 10:18 | XMS_ITS | Patient Health Record ---
Author Organization [facility] Address [address] [place] [address] [address] [place] [address] Care Team Providers Care Washing And Screening Plant Supervisor Name Role Phone LAZ AKBAR Primary Care Provider Lee Johnson Unavailable [phone] Allergies Allergen (clinical drug ingredient) Drug/Non Drug [...] W/U Status Risk Notes Problem Tobacco user (748806412) Nicotine dependence, cigarettes, uncomplicated (F17.210) Active confirmed Problem Insomnia (235769249) Insomnia, unspecified (G47.00) Active confirmed Problem Essential hypertension (63009985) Essential (primary) hypertension (I10) Active confirmed Problem Disorder of skin AND/OR subcutaneous tissue (25855132) Disorder of the skin and subcutaneous tissue, unspecified (L98.9) Active confirmed Problem Osteoarthritis (729081796) Polyosteoarthriti s, unspecified (M15.9) Active confirmed Problem Osteoarthritis of knee (878379277) Bilateral primary osteoarthritis of knee (M17.0) Active confirmed Problem Hyperglycemia (41543503) Hyperglycemia, unspecified (R73.9) Active confirmed Problem Hyperlipidemia (82326174) Hyperlipidemia, unspecified (E78.5) Active confirmed Problem Chronic kidney disease stage 3B (disorder) (392678138) Chronic kidney disease, stage 3b (N18.32) Active confirmed Problem Age-related osteoporosis (771512684) Osteoporosis without current pathological fracture, unspecified osteoporosis type (M81.0) Active confirmed Vital Signs Heart Rate 87 /min 01/14/2025 Temperature 97.1 degrees Fahrenheit 01/14/2025 Blood pressure diastolic 72 mm Hg 01/14/2025 Oximetry 98 % 01/14/2025 Height 66.73 in 01/14/2025 Blood pressure systolic 130 mm Hg 01/14/2025 Weight 226.3 lbs 01/14/2025 BMI 35.73 kg/m2 01/14/2025 Encounters Encounter Location Date Provider Diagnosis [facility] [address] [address] 09/09/2024 LAZ AKBAR Encounter for genera l adult medical examination without abnormal findings Z00.00 ; Essential (primary) hypertension I10 ; Hyperlipidemia, unspecified E78.5 ; Chronic kidney disease, stage 3b N18.32 and Hyperglycemia, unspecified R73.[address] [address] 10/01/2024 Lee Johnson Essential (primary) hypertension I10 [address] [address] 01/14/2025 Lee Johnson Pre-operative examination Z01.[address] [address] 11/23/2024 LAZ AKBAR Assessments Encounter Date Diagnosis (ICD Code) Assessment Notes Treatment Notes Treatment Clinical Notes Section Notes 01/14/2025 Pre-operative examination (ICD-10 - Z01.818) Ms. Campoverde is a 74 year old lady with hypertension, hyperlipidemia, osteoarthritis and follows up with Dr. Storm at [facility] for cortisone injections, neuropathy and sees Dr. Saunders for neuropathy and CKD here for pre-op clearance. She has cataract surgery on 01/20 and 02/10 with [facility] Mcgowan. Plan as follows: Cardiac [...] the patient but was available upon request 10/01/2024 Essential (primary) hypertension (ICD-10 - I10) Ms. Campoverde is a 74 year old lady with hypertension, hyperlipidemia, osteoarthritis and follows up with Dr. Storm at [facility] for cortisone injections, neuropathy and sees [...] and follows up with Dr. Storm at [facility] for cortisone injections, neuropathy and sees [...] cancer screening. Eye screening. She sees her multimedia instructional designer regularly. Dental screening. She sees dentist regularly. [...] this note under HIPAA compliance and under [place] law mandated for scribe services. Patient aware [...] and follows up with Dr. Storm at [facility] for cortisone injections, neuropathy and sees [...] cancer screening. Eye screening. She sees her multimedia instructional designer regularly. Dental screening. She sees dentist regularly. [...] this note under HIPAA compliance and under [place] law mandated for scribe services. Patient aware [...] and follows up with Dr. Storm at [facility] for cortisone injections, neuropathy and sees [...] cancer screening. Eye screening. She sees her multimedia instructional designer regularly. Dental screening. She sees dentist regularly. [...] this note under HIPAA compliance and under [place] law mandated for scribe services. Patient aware [...] and follows up with Dr. Storm at [facility] for cortisone injections, neuropathy and sees [...] cancer screening. Eye screening. She sees her multimedia instructional designer regularly. Dental screening. She sees dentist regularly. [...] this note under HIPAA compliance and under [place] law mandated for scribe services. Patient aware [...] and follows up with Dr. Storm at [facility] for cortisone injections, neuropathy and sees [...] cancer screening. Eye screening. She sees her multimedia instructional designer regularly. Dental screening. She sees dentist regularly. [...] this note under HIPAA compliance and under [place] law mandated for scribe services. Patient aware [...] METABOLIC PANEL 04/18/2022 LIPID PANEL 04/18/2022 Hemoglobin [id number] 09/09/2024 Albumin/Creatinine Ratio,Urine-[id number] Lipid Panel-[id number] 09/09/2024 Comp. Metabolic Panel [id number] 2023 Next Appt Details Provider Name:Lee marshall, 04/01/2025 11:00:00 AM, [address] [place] [address], [address], Insurance Providers Payer Name Payer Address Payer Phone Subscriber Number Group Number Insured Name Patient Relationship to Insured Coverage Start Date Coverage End Date Medicare [address] [place] [phone] [phone] [id number] Juliette Campoverde Self - patient is the insured [address] [facility] [address] [place] [address] [id number] Juliette Campoverde Self - patient is [...]
== END 2025-03-09 09:41 | disposition home or self-care (01) ==
LOC: HO.HOSX 09:40
PROVIDERS: Visit Provider Orthopaedic Surgery
DX: M25.562 Pain in left knee (principal); G89.29 Other chronic pain; Z96.652 Presence of left artificial knee joint
CPT/HCPCS: 73562; 99212

== ENCOUNTER 2025-03-09 11:09 | Outpatient (AMB) | payer MEDICARE, SELFPAY ==
[2025-03-09 11:23] VITALS: BMI 35.3
--- NOTE | 2025-03-09 11:23 | A.OFFVIS_ITS ---
Vital Signs 03/09/25 11:23 Height 5 ft 7 in Weight 225 lb 2 oz BMI 35.3 Intake Visit Reasons: OV f/u- LT knee pain f/u, L TKA 03/12/23 Intake Note: Juliette is a 74 year old female who presents with for evaluation of her left knee after undergoing left total knee replacement surgery by Dr. Palomo Storm in [place] on 03/12/2023. Patient has been going to Dr. Mcginnis in pain management, Left saphenous Sprint PNS performed 09/17/24. She reports mild intermittent discomfort in her left knee. She also reports intermittent ?numbness? along the lateral aspect of her incision as well as ?stiffness? in her left thigh. She has taken Tylenol, gabapentin and meloxicam which gave her mild relief. Allergies tizanidine Allergy (Verified 03/09/25 11:24) Unknown Medication List - Last Reconciled 03/09/25 by Eduardo Clarke MD cholecalciferol (vitamin D3) 25 mcg PO DAILY gabapentin 300 mg PO TID hydrochlorothiazide 12.5 mg PO DAILY meloxicam 15 mg PO DAILY rosuvastatin 10 mg PO DAILY [facility] Medical History (Updated 09/15/24 @ 14:57 by Sameer Mcginnis MD) Sciatic pain Chronic back pain History of colon cancer Hyperlipemia Chronic kidney disease, stage 3a Hypertension Surgical History History of arthroplasty of left knee (03/12/23) History of colectomy Family History Brother Cancer Father Cancer Social History Alcohol intake: current Patient Tobacco Use Status: Former Tobacco user Physical Exam Vital Signs: BMI result Body Mass Index 35.3 Const Other: Well-nourished well-developed very friendly female awake alert and oriented x3 in no acute distress Extrem Other: Left knee examination shows that the surgical incision is well healed, no erythema, range of motion from -3 degrees to 110 degrees, her patella tracks well, minimal discomfort with range of motion Assessment & Plan Assessment & Plan (1) Chronic knee pain after total replacement of knee joint: Code(s): M25.569 - Pain in unspecified knee; G89.29 - Other chronic pain; Z96.659 - Presence of unspecified artificial knee joint Category: Medical Plan Ms. Campoverde presents with intermittent left knee pain after undergoing left total knee replacement surgery by Dr. Storm on 03/12/2023. Her discomfort is most likely due to scar tissue formation. At this point the patient's symptoms are tolerable to her. She will continue with her home exercise program. She will follow up with me on an as-needed basis should her symptoms worsen in any way. I spent 20 minutes in reviewing the patient's records and imaging studies, seeing the patient and documenting in the medical record. Orders: Orders XR knee LT 3V Today M25.562 - Pain in left knee Coding Level of Care Code Est Pt Level 3 (24864) Complex EM visit Add On G2211 Diagnoses Chronic knee pain after total replacement of knee joint M25.569; G89.29; Z96.659
--- OUTSIDE RECORDS SUMMARY | 2025-03-09 12:37 | XMS_ITS | Patient Health Record ---
Author Organization [facility] Address [address] [place] [address] [address] [place] [address] Care Team Providers Care Veterinary Laboratory Technician Name Role Phone LAZ AKBAR Primary Care Provider [phone] Lee Johnson Unavailable [phone] Allergies Allergen (clinical drug ingredient) Drug/Non Drug Allergy documented on EMR Reaction Allergy Type Onset Date Status atorvastatin Atorvastatin Calcium Unknown Drug Allergy Active tizanidine tiZANidine HCl Unknown Drug Allergy A ctive Reason For Referral No Information Medications Medication [...] W/U Status Risk Notes Problem Tobacco user (581030586) Nicotine dependence, cigarettes, uncomplicated (F17.210) Active confirmed Problem Insomnia (404465322) Insomnia, unspecified (G47.00) Active confirmed Problem Essential hypertension (93054842) Essential (primary) hypertension (I10) Active confirmed Problem Disorder of skin AND/OR subcutaneous tissue (92998903) Disorder of the skin and subcutaneous tissue, unspecified (L98.9) Active confirmed Problem Osteoarthritis (523263485) Polyosteoarthriti s, unspecified (M15.9) Active confirmed Problem Osteoarthritis of knee (832453647) Bilateral primary osteoarthritis of knee (M17.0) Active confirmed Problem Hyperglycemia (44607139) Hyperglycemia, unspecified (R73.9) Active confirmed Problem Hyperlipidemia (07695766) Hyperlipidemia, unspecified (E78.5) Active confirmed Problem Chronic kidney disease stage 3B (disorder) (714437939) Chronic kidney disease, stage 3b (N18.32) Active confirmed Problem Age-related osteoporosis (592389537) Osteoporosis without current pathological fracture, unspecified osteoporosis type (M81.0) Active confirmed Vital Signs Heart Rate 87 /min 01/14/2025 Temperature 97.1 degrees Fahrenheit 01/14/2025 Oximetry 98 % 01/14/2025 Blood pressure diastolic 72 mm Hg 01/14/2025 Height 66.73 in 01/14/2025 Blood pressure systolic 130 mm Hg 01/14/2025 Weight 226.3 lbs 01/14/2025 BMI 35.73 kg/m2 01/14/2025 Encounters Encounter Location Date Provider Diagnosis [facility] [address] [address] 09/09/2024 LAZ AKBAR Encounter for genera l adult medical examination without abnormal findings Z00.00 ; Essential (primary) hypertension I10 ; Hyperlipidemia, unspecified E78.5 ; Chronic kidney disease, stage 3b N18.32 and Hyperglycemia, unspecified R73.[address] [address] 10/01/2024 Lee Johnson Essential (primary) hypertension I10 [address] [address] 01/14/2025 Lee Johnson Pre-operative examination Z01.[address] [address] 11/23/2024 LAZ AKBAR Assessments Encounter Date Diagnosis (ICD Code) Assessment Notes Treatment Notes Treatment Clinical Notes Section Notes 10/01/2024 Essential (primary) hypertension (ICD-10 - I10) Ms. Campoverde is a 74 year old lady with hypertension, hyperlipidemia, osteoarthritis and follows up with Dr. Storm at [facility] for cortisone injections, neuropathy and sees Dr. [...] and follows up with Dr. Storm at [facility] for cortisone injections, neuropathy and sees Dr. Saunders for neuropathy and CKD here for pre-op clearance. She has cataract surgery on 01/20 and 02/10 with [facility] with Dr. Mcgowan. Plan as follows: [...] patient but was available upon request 09/09/2024 Encounter for general adult medical examination without abnormal findings (ICD-10 - Z00.00) Ms. Campoverde is a 74 year old lady with hypertension, hyperlipidemia, osteoarthritis and follows up with Dr. Storm at [facility] for cortisone injections, neuropathy and sees Dr. [...] cancer screening. Eye screening. She sees her offal separator regularly. Dental screening. She sees dentist regularly. [...] this note under HIPAA compliance and under [place] law mandated for scribe services. Patient aware [...] and follows up with Dr. Storm at [facility] for cortisone injections, neuropathy and sees Dr. [...] cancer screening. Eye screening. She sees her offal separator regularly. Dental screening. She sees dentist regularly. [...] this note under HIPAA compliance and under [place] law mandated for scribe services. Patient aware [...] and follows up with Dr. Storm at [facility] for cortisone injections, neuropathy and sees Dr. [...] cancer screening. Eye screening. She sees her offal separator regularly. Dental screening. She sees dentist regularly. [...] this note under HIPAA compliance and under [place] law mandated for scribe services. Patient aware [...] and follows up with Dr. Storm at [facility] for cortisone injections, neuropathy and sees Dr. [...] cancer screening. Eye screening. She sees her offal separator regularly. Dental screening. She sees dentist regularly. [...] this note under HIPAA compliance and under [place] law mandated for scribe services. Patient aware [...] and follows up with Dr. Storm at [facility] for cortisone injections, neuropathy and sees Dr. [...] cancer screening. Eye screening. She sees her offal separator regularly. Dental screening. She sees dentist regularly. [...] this note under HIPAA compliance and under [place] law mandated for scribe services. Patient aware [...] METABOLIC PANEL 04/18/2022 LIPID PANEL 04/18/2022 Hemoglobin [id number] 09/09/2024 Albumin/Creatinine Ratio,Urine-444139 Lipid Panel-[id number] 09/09/2024 Comp. Metabolic Panel [id number] 2023 Next Appt Details Provider Name:Lee marshall, 04/01/2025 11:00:00 AM, [address] [place] [address], [address], Insurance Providers Payer Name Payer Address Payer Phone Subscriber Number Group Number Insured Name Patient Relationship to Insured Coverage Start Date Coverage End Date Medicare [address] [place] [address] [phone] [id number] Juliette Campoverde Self - patient is the insured 3 [facility] [address] [place] [address] [id number] Juliette Campoverde Self - patient is [...]
--- OUTSIDE RECORDS SUMMARY | 2025-03-09 12:37 | XMS_ITS ---
Author Organization [facility] Address [address] [place] [address] Care Team Providers Care Sweet Potato Disintegrator Name Role Phone LAZ AKBAR Primary Care Provider [phone] Lee Johnson [phone] REASON FOR VISIT Cataract January 20 and February 10 2025 Encounters Encounter Location Date Provider Diagnosis [facility] [address] [address] 01/12/2025 Lee Johnson Plan Of Treatment Next Appt Details Provider Name:Lee marshall, 04/01/2025 11:00:00 AM, [address] [place] [address], [place], [address], Progress Notes * Rand CHENB:1950 ( 74 yo F)Acc No.[id number]:01/12/2025 Progress Note Patient:?Juliette CHEN Appointment Provider:Keith Johnson :1950???Age:74 Y???Sex:Female D ate:01/12/2025 Address:[address] [place], [place] [address] Pcp:LAZ AKBAR Subjective: * Chief Complaints: * ???1. Cataract January 20 and February 10 2025. * Medical History:? Objective: * Vitals:? Assessment: Plan: * Treatment: * Images: * Electronic signature of Prudence Johnson PA-C on 03/09/2025 at 12:37 PM EDT Sign off status: Pending * Appointment Provider:?Lee Rodriguez te:?01/12/2025 Generated for John mercado/Saira/Dorinda on:?03/09/2025 12:37 PM EDT
--- OUTSIDE RECORDS SUMMARY | 2025-03-09 12:37 | XMS_ITS | Clinical Summary ---
Author Organization [facility] Address [address] [place] [address] Care Team Providers Care Prism Measurer Name Role Phone Paramjit Delaney MD Primary Care Provider [phone] Surgical History Surgery Date Site/Laterality Comments COLECTOMY [...] age to complete this topic Care Teams Prism Measurer Relationship Specialty Start Date End Date Paramjit Delaney MD [address] [place] [address] PCP - General Internal Medicine 03/13/22
--- OUTSIDE RECORDS SUMMARY | 2025-03-09 12:37 | XMS_ITS | Clinical Summary ---
Author Organization [facility] Address [address] [place] [address] Phone Care Team Providers Care Shipping And Receiving Supervisor Name Role Phone Paramjit Delaney MD Primary Care Provider [phone] Allergies Active Allergy Reactions Criticality Noted Date [...] age to complete this topic Insurance Medicare [facility] Medicare [facility] Care Teams Shipping And Receiving Supervisor Relationship Specialty Start Date End Date Paramjit Delaney MD [address] [place] [address] PCP - General Internal Medicine 07/25/21
--- OUTSIDE RECORDS SUMMARY | 2025-03-09 12:38 | XMS_ITS | Data Portability ---
Author Organization [facility], [facility] Address [address] [place] [address] Care Team Providers Care Gambling Floor Supervisor Name Role Phone KAREEM AKBAR Referring Provider LAZ AKBAR Primary Care Provider [phone] Assessment Encounter Date Assessment Date Assessment LastModified by Organization Details LastModified Time 05/04/2024 05/04/2024 Pt tolerating treatment well, able to complete full program without progressing pain. Pt fatigued quickly with hip strengthening, weakness in hip abductors and ERs observed with strengthening. Compensation observed with hip flexors. Unable to complete SLR. Continue with POC, progress as tolerated. Not available 05/04/2024 14:15:21 Plan of Treatment Reminders Order Date Submit Date Provider Last Modified By Organization Details Last Modified Time Details Appointments RECHECK 15 2024 11:00A Juani Polanco PA-C Not available Not available Not available Lab None recorded. Referral None recorded. Procedures None recorded. Surgeries None recorded. Imaging None recorded. Medication Orders acetamino phen 300 mg-codein e 30 mg tablet 2023 024 [id number], [address], [place], [id number], 05/06/2024 11:39:29 Patient TargetsNo targets recorded. Patient [...] Address Organization Details Recorded Time No complaints 771131494 Active Status: 'I'; Not Available [facility] 4 09:12:19 Idiopathic osteoarthri tis 818006229 Active 2016 Problem Code: M17.11; Problem Code Type: ICD-10; Status: 'A'; Not Available [facility] 4 10:56:31 Soft tissue swelling of knee joint 319308320 Active 2023 PALMER ESPAÑA [facility] 4 16:57:58 Problem Notes None recorded. Procedures Surgical History Date Name Laterality Status Provider Name and Address Organization Details Recorded Time 5 Knee Kenalog 1cc L/R completed Rene Polanco PA-C [address], [place], [address], [facility] 02/04/2025 08:22:54 5 Knee Kenalog 1cc L/R completed TOMAS TangC [address], [place], [address], [facility] 11/04/2024 08:00:17 4 Sports Knee 4&1 completed Rene Polanco PA-C [address], [place], [address], [facility] 08/03/2024 08:03:33 4 Sports Knee 4&1 completed Rene Polanco PA-C [address], [place], [address], [facility] 05/07/2024 07:36:42 4 48493 Therapeutic Exercise (1:1) completed Brooke Varghese DPT [address], [place], [address], [facility] 05/04/2024 14:09:55 4 22215 Therapeutic Exercise (1:1) completed Juve Fernandez PTA [address], [place], [address], [facility] 04/24/2024 15:53:00 4 86842 Therapeutic Exercise (1:1) completed Juve Fernandez PTA [address], [place], [address], [facility] 04/21/2024 13:05:09 4 42551 Therapeutic Exercise (1:1) completed Brooke Varghese DPT [address], [place], [address], [facility] 04/16/2024 14:00:05 4 11748: Low complexity PT Eval completed Brooke Varghese DPT [address], [place], [address], [facility] 04/16/2024 14:00:11 4 G8419 BMI Outside Normal Parameters, F/U not Documented completed Brooke Varghese DPT [address], [place], [address], [facility] 04/16/2024 13:59:20 4 G8427 Current Medication Documented completed Brooke Varghese DPT [address], [place], [address], [facility] 04/16/2024 13:59:24 4 Sports Knee 4&1 completed Rene Polanco PA-C [address], [place], [address], [facility] [...] Name and Address Organization Details Recorded Time 893694 tizanidin e medicatio n Not available Not available Not available 03/11/2024 77922 RxNorm JUMA mcgraw [place] - [facility] 14:59:24 Medications Name Sig Start Date Stop [...] Updated DateTime 05/06/2024 170.18 cm 35.4 kg/m2 724870.88 g Josie Lao [facility] 05/06/2024 11:25:16 Date Recorded Body height Provider Name an d Address Organization Details Last Updated DateTime 08/03/2024 170.18 cm JOSIE DEMARCO [facility] 08/03/2024 10:12:17 Date Recorded Body height Provider Name an d Address Organization Details Last Updated DateTime 11/04/2024 170.18 cm JOSIE DEMARCO [facility] 11/04/2024 10:03:32 Date Recorded Body height Provider Name an d Address Organization Details Last Updated DateTime 02/03/2025 170.18 cm JOSIE DEMARCO [facility] 02/03/2025 10:54:58 Social History None recorded. Functional Status None recorded. Mental Status None recorded. Family History Nothing Reported. Medical History No medical history recorded. Gynecological HistoryNo gynecological history recorded. Obstetrics History GPAL:G 0 P 0 0 0 0 Past Encounters Encounter ID Performer Location Encounter Start Date Encounter Closed Date Diagnosis/Indication Diagnosis SNOMED-CT Code Diagnosis ICD10 Code Diagnosis Note [id number] YUNG Tang Clinical [address] [facility] [place] [address] 02/10/2024 10:56:37 02/10/2024 12:33:07 Osteoarthritis of right knee joint 1362659034 78477 M17.11 History of left total knee replacement 9171557547 587358 Z96.059 [id number] YUNG Zhou 3rd floor [address] [facility] [facility] [place] [address] 03/11/2024 14:37:20 04/04/2024 15:20:47 History of left total knee replacement 1370465697 332301 Z96.652 Pain of le ft knee joint 5164625145 45284 M25.562 Patient has chronic and persistent left [...] Pes anseri nus bursitis of left knee 7411442322 200179 M70.52 [id number] YUNG Tang Clinical [address] [place] [address] 03/16/2024 10:23:08 04/07/2024 10:38:32 Pain of left knee joint 7792433826 88513 M25.620 [id number] MD Bhupendra Starks Clinical [address] [place] [address] 04/02/2024 15:31:24 05/01/2024 15:31:11 Soft tissue swelling of knee joint 659091989 M25.469 Pes anseri nus bursitis of left knee 3169914406 833775 M70.52 [id number] NENO Dominguez PT [address] [place] [address] 04/16/2024 13:53:59 04/16/2024 14:58:02 Soft tissue swelling of knee joint 622599073 M25.231 [id number] EFFIE Huddlestonon PT [address] [place] [address] 04/22/2024 13:26:44 04/22/2024 15:30:11 Soft tissue swelling of knee joint 975419188 M25.398 [id number] Juve Fernandez, [employer] 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 [facility] [address] [place] [address] 04/27/2024 13:01:12 04/27/2024 14:02:18 Soft tissue swelling of knee joint 427354019 M25.777 [id number] Brooke Varghese, DPT [facility] [address] [place] [address] 05/04/2024 12:37:55 05/04/2024 14:15:39 Soft tissue swelling of knee joint 430672602 M25.889 [id number] YUNG Tang 2nd floor [address] [facility] [place] [address] 05/06/2024 10:42:34 05/25/2024 15:42:16 Pain of left knee joint 1545564107 03751 M25.562 Osteoarthr itis of right knee joint 1832822821 72264 M17.11 [id number] YUNG Tnag Clinical [address] [place] [address] 08/03/2024 10:04:57 08/26/2024 11:02:36 Osteoarthritis of right knee joint 5266006024 60100 M17.11 [id number] YUNG Tang Clinical [address] [place] [address] 11/04/2024 09:56:12 11/17/2024 08:35:36 Osteoarthritis of right knee joint 1481162212 51956 M17.11 [id number] YUNG Tang Clinical [address] [place] [address] 02/03/2025 10:53:30 02/16/2025 10:52:11 Osteoarthritis of right knee joint 8319422229 50345 M17.11 Health Concerns Section Related Observation LastModified by Organization Detai ls LastModified Time None Recorded Concern Status LastModified by Organization Details LastModified Time None Recorded Advance Directives Directive None Recorded Payers Encounter Date Sequence Insurance Name Policy Number Policy Posada Covered Member ID Posada Member ID Guarantor Name 05/04/2024 1 [place] [employer] Juliette A Campoverde [id number] Juliette A Campoverde 05/04/2024 2 [employer] OPTIONS (MEDICARE SUPPLEMENT) Juliette A Campoverde [id number] Juliette A Campoverde 05/06/2024 1 [place] Juliette A Campoverde [id number] Juliette A Campoverde 05/06/2024 2 [employer] OPTIONS (MEDICARE SUPPLEMENT) Juliette A Campoverde [id number] Juliette A Campoverde 08/03/2024 1 [place] Juliette A Campoverde [id number] Juliette A Campoverde 08/03/2024 2 [employer] OPTIONS (MEDICARE SUPPLEMENT) Juliette A Campoverde [id number] Juliette A Campoverde 11/04/2024 1 [place] [employer] Juliette A Campoverde [id number] Juliette A Campoverde 11/04/2024 2 [employer] HE[employer] OPTIONS (MEDICARE SUPPLEMENT) Juliette A Campoverde [id number] Juliette A Campoverde 02/03/2025 1 [place] Juliette A Campoverde [id number] Juliette A Campoverde 02/03/2025 2 [employer] HE[employer] OPTIONS (MEDICARE SUPPLEMENT) Juliette A Campoverde [id number] Juliette A Campoverde Notes Date Note Type Note Provider Name and Address Organization Details Recorded Time 05/04/2024 text/html Pt reports an increase in pain coming into therapy today, spent all weekend playing with grandchildren so extra sore. 3/10 pain, with L knee swelling. Brooke Varghese, DPT [address] [facility] [address], [place], [address], [place] - [facility] 05/04/2024 14:15:33 05/06/2024 text/html [...] continued conservative treatment. Rene Polanco PA-C [address] [facility] [address], [place], [address], [facility] - [facility] 05/07/2024 07:37:11 08/03/2024 text/html [...] continued conservative treatment. Rene Polanco PA-C [address] [facility] [address], [place], [address], [facility] - [facility] 08/03/2024 12:19:17 11/04/2024 text/html [...] versus continued conservative treatment. Rene Polanco PA-C [address] [place] [address] [address], [place], [address], [facility] - [facility] 11/04/2024 12:20:59 02/03/2025 text/html [...] continued conservative treatment. Rene Polanco PA-C [address] [facility] [address], [place], [address], [place] - [facility] 02/04/2025 08:23:15 OBGyn Episode No OBEpisode recorded.
== END 2025-03-09 11:44 | disposition home or self-care (01) ==
LOC: HO.HOS 11:10
PROVIDERS: PCP Hospitalist; Visit Provider Orthopaedic Surgery
DX: M25.562 Pain in left knee (principal); G89.29 Other chronic pain; Z96.652 Presence of left artificial knee joint
CPT/HCPCS: 99213; G2211

== ENCOUNTER → 2025-03-09 11:14 | Outpatient (BNV) | payer MEDICARE, SELFPAY | PROVIDERS: Visit Provider Radiology Diagnostic Radiology | DX: M25.562 Pain in left knee (principal); Z96.652 Presence of left artificial knee joint | CPT/HCPCS: 73562 ==

== ENCOUNTER 2025-08-24 10:51 | Outpatient (AMB) | payer MEDICARE, SELFPAY ==
--- NOTE | 2025-08-24 10:55 | HO.NEPHOV_ITS ---
Vital Signs 08/24/25 10:57 Height 5 ft 7 in Weight 224 lb BMI 35.1 BP 140/80 H Blood Pressure Location Lt brachial Position Sitting Pulse 87 Pulse Source Pulse Oximeter Pulse Oximetry (%) 99 Oxygen Delivery Method Room Air Intake Visit Reasons: 6mon follow-up w/labs-Conf Pre Certification Specialist Required: No Accompanied by: Self / Same As Patient Allergies tizanidine Allergy (Verified 08/24/25 10:57) Unknown HPI Comments Details: Juliette was seen in follow-up of her chronic kidney disease stage 3 and hypertension. She has history of colon cancer status post colectomy 20 years ago. She has history of chronic back and pain. She has been taking nonsteroidal anti-inflammatories for the pain. She denies any hematuria, urinary symptoms, nephrolithiasis. She is not known to have any significant proteinuria. She does not have any chest pain, shortness of breath, proximal nocturnal dyspnea, orthopnea or pedal edema. All other systems have been reviewed and were negative [facility] Medical History (Updated 09/15/24 @ 14:57 by Sameer Mcginnis MD) Sciatic pain Chronic back pain History of colon cancer Hyperlipemia Chronic kidney disease, stage 3a Hypertension Surgical History History of arthroplasty of left knee (03/12/23) History of colectomy Family History Brother Cancer Father Cancer Social History Alcohol intake: current Patient Tobacco Use Status: Former Tobacco user Review of Systems Const All systems reviewed & are unremarkable except as noted in HPI and below Physical Exam Const General: comfortable and no acute distress Orientation/consciousness: patient oriented x3 HEENT Head: Yes normocephalic Mouth: Normal oral and palatal mucosa present Eyes EOM: EOMs intact bilaterally Neck Neck: Yes supple Resp Auscultation: clear to auscultation bilaterally Cardio Jugular venous distension: no JVD Rate: regular rate GI Palpation (GI): Soft to palpation Auscultation: normal bowel sounds General: Yes no CVA tenderness Back/Spine/Pelvis Back: no CVA tenderness Skin General skin exam: no rashes or lesions noted Neuro General: patient oriented x3 and moves all extremities Extrem General: Yes no pedal edema Assessment & Plan Assessment & Plan (1) CKD (chronic kidney disease) stage 3, GFR 30-59 ml/min: Code(s): N18.30 - Chronic kidney disease, stage 3 unspecified Category: Medical Qualifiers: Chronic kidney disease stage 3 subtype: stage 3a (GFR 45-59) Qualified Code(s): N18.31 - Chronic kidney disease, stage 3a (2) Hypertension: Code(s): I10 - Essential (primary) hypertension Category: Medical Qualifiers: Hypertension type: primary hypertension Qualified Code(s): I10 - Essential (primary) hypertension Plan Juliette peck has CKD for some time. Her renal functions have been fairly stable. She had renal ultrasound the past which showed right kidney of 9.5 cm with a normal parenchyma. Her left kidney showed mildly increased cortical echogenicity with normal thickness. She should maintain good hydration and minimize nonsteroidal anti-inflammatories. Her blood pressure is currently at goal with out ACEI. I may restart ACEI with time at a lower dose. She can continue HCTZ 12.5 mg to 25 mg as on a needed basis for ankle swelling. I did not make any other medication changes today. Follow-up blood work ordered. All questions answered. Follow-up appointment given. Orders: Orders Creatinine 6 Months I10 - Essential (primary) hypertension, N18.31 - Chronic kidney disease, stage 3a Electrolytes 6 Months I10 - Essential (primary) hypertension, N18.31 - Chronic kidney disease, stage 3a Calcium 6 Months I10 - Essential (primary) hypertension, N18.31 - Chronic ki dney disease, stage 3a Blood Urea Nitrogen 6 Months I10 - Essential (primary) hypertension, N18.31 - Chronic kidney disease, stage 3a Coding Level of Care Code Est Pt Level 4 (87241) Diagnoses Stage 3a chronic kidney disease N18.31 Chronic kidney disease stage 3 subtype: stage 3a (GFR 45-59) Primary hypertension I10 Hypertension type: primary hypertension
[2025-08-24 10:57] VITALS: BP 140/80; PULSE 87; O2SAT 99; BMI 35.1
--- OUTSIDE RECORDS SUMMARY | 2025-08-24 13:55 | XMS_ITS | Data Portability ---
Author Organization [facility], [facility] Address [address] [place] [address] Care Team Providers Care Attending Physician Name Role Phone KAREEM AKBAR Referring Provider [phone] LAZ AKBAR Primary Care Provider [phone] Assessment No assessment recorded. Plan of Treatment Reminders Order Date Submit Date Provider Last Modified By Organization Details Last Modified Time Details Appointments RECHECK 15 2025 10:15A M Rene Polanco PA-C Not available Not available Not available Lab None recorded. Referral None recorded. Procedures None recorded. Surgeries None recorded. Imaging None recorded. Medication Orders celecoxib 200 mg capsule 2024 025 [email or web address] [id number], [address], [place], [id number], 05/19/2025 11:15:56 Patient TargetsNo targets recorded. Patient InstructionsNo instructions recorded. Reason for Referral None Reported. Problems Name Problem SNOMED Code Status Onset Date Resolution Date Notes Provider Name and Address Organization Details Recorded Time No complaints 031763231 Active Status: 'I'; Not Available [facility] 4 09:12:19 Idiopathic osteoarthri tis 958370388 Active 2016 Problem Code: M17.11; Problem Code Type: ICD-10; Status: 'A'; Not Available [facility] 4 10:56:31 Soft tissue swelling of knee joint 582181824 Active 2023 [facility]MER [facility] 16:57:58 Problem Notes None recorded. Procedures Surgical History Date Name Laterality Status Provider Name and Address Organization Details Recorded Time 5 Knee Kenalog 1cc L/R completed Rene Polanco PA-C [address], [place], [address], [facility] 08/17/2025 07:45:34 5 Knee Kenalog 1cc L/R completed Rene Polanco PA-C [address], [place], [address], [facility] 05/19/2025 07:46:53 5 Knee Kenalog 1cc L/R completed Rene Polanco PA-C [address], [place], [address], [facility] 02/04/2025 08:22:54 5 Knee Kenalog 1cc L/R completed Rene Polanco PA-C [address], [place], [address], [facility] 11/04/2024 08:00:17 4 Sports Knee 4&1 completed Rene Polanco PA-C [address], [place], [address], [facility] 08/03/2024 08:03:33 4 Sports Knee 4&1 completed Rene Polanco PA-C [address], [place], [address], [facility] 05/07/2024 07:36:42 4 17913 Therapeutic Exercise (1:1) completed Brooke Varghese DPT [address], [place], [address], [facility] 05/04/2024 14:09:55 4 58717 Therapeutic Exercise (1:1) completed Juve Fernandez PTA [address], [place], [address], [facility] 04/24/2024 15:53:00 4 03380 Therapeutic Exercise (1:1) completed Juve Fernandez PTA [address], [place], [address], [facility] 04/21/2024 13:05:09 4 97736 Therapeutic Exercise (1:1) completed VALENTE DominguezT [address], [place], [address], [facility] 04/16/2024 14:00:05 4 99186: Low complexity PT Eval completed VALENTE DominguezT [address], [place], [address], [facility] 04/16/2024 14:00:11 4 G8419 BMI Outside Normal Parameters, F/U not Documented completed Brooke Varghese DPT [address], [place], [address], [facility] 04/16/2024 13:59:20 4 G8427 Current Medication Documented completed Brooke Varghese DPT [address], [place], [address], [facility] 04/16/2024 13:59:24 4 Sports Knee 4&1 completed Rene Polanco PA-C [address], [place], [address], [facility] 02/10/2024 07:32:18 Imaging Results None recorded. Procedure Notes None recorded. Medical Equipment None Reported. Allergies Allergen ID Allergen Name Allergen Category Reaction Reaction Severity Criticality Documentation Date Start Date Code Code System Note Provider Name and Address Organization Details Recorded Time 626779 tizanidin e medicatio n Not available Not available Not available 03/11/2024 79207 [facility] 14:59:24 Medications Name Sig Start Date Stop Date Status Note LastModified by Organization Details LastModified Time celecoxib 200 mg capsule TAKE 1 CAPSULE BY MOUTH EVERY DAY active Not Available Not Available No t Available diclofenac 3 % topical gel 04/02 completed Not Available Not Available Not Available acetazolami de ER 500 mg capsule,ext ended release TAKE 1 CAPSULE BY MOUTH TODAY active Not Available Not Available No t Available tizanidine 4 mg tablet TAKE 1 TABLET BY MOUTH THREE TIMES DAILY NEEDED FOR PAIN OR SPASM 04/02 completed Not Available Not Available Not Available meloxicam 15 mg tablet TAKE 1 TABLET BY MOUTH DAILY IN THE MORNING active Not Available Not Available No t Available acetaminoph en 300 mg-codeine 30 mg tablet TAKE 1 TABLET BY MOUTH EVERY 4 TO 6 HOURS FOR 7 DAYS 10/30 completed Not Available Not Available Not Available tramadol 50 mg tablet TAKE 1 [...] mg capsule TAKE 1 CAPSULE BY MOUTH FOUR TIMES DAILY active Not Available Not Available No t Available lisinopril 10 mg-hydrochl orothiazide 12.5 mg tablet TAKE 1 TABLET BY MOUTH EVERY DAY 10/30 completed Not Available Not Available Not Available rosuvastati n 10 mg tablet TAKE 1 TABLET BY MOUTH DAILY active Not Available Not Available No t Available Aleve 04/02 completed Not Available Not Available Not Available hydrochloro thiazide 12.5 mg tablet TAKE 2 TABLETS ORALLY DAILY active Not Available Not Available No t Available D3 DOTS active Not Available Not Avail able Not Available Vitals Date Recorded Body height Provider Name an d Address Organization Details Last Updated DateTime 11/04/2024 170.18 cm NANETTE DEMARCO [place] - [facility] 11/04/2024 10:03:32 Date Recorded Body height Provider Name an d Address Organization Details Last Updated DateTime 02/03/2025 170.18 cm NANETTE DEMARCO [facility] 02/03/2025 10:54:58 Date Recorded Body height Provider Name an d Address Organization Details Last Updated DateTime 05/19/2025 170.18 cm NANETTE DEMARCO [facility] 05/19/2025 10:50:58 Date Recorded Body height Provider Name an d Address Organization Details Last Updated DateTime 08/03/2024 170.18 cm NANETTE DEMARCO [facility] 08/03/2024 10:12:17 Date Recorded Body height Provider Name an d Address Organization Details Last Updated DateTime 08/16/2025 170.18 cm NANETTE DEMARCO [facility] 08/16/2025 10:27:29 Social History None recorded. Functional Status None recorded. Mental Status None recorded. Family History Nothing Reported. Medical History No medical history recorded. Gynecological HistoryNo gynecological history recorded. Obstetrics History GPAL:G 0 P 0 0 0 0 Past Encounters Encounter ID Performer Location Encounter Start Date Encounter Closed Date Diagnosis/Indication Diagnosis SNOMED-CT Code Diagnosis ICD10 Code Diagnosis IMO Codes Diagnosis Note [id number] YUNG Tang Clinical [address] [facility] [place] [address] 02/10/2024 10:56:37 02/10/2024 12:33:07 Osteoarthritis of right knee joint 4303957335 54489 M17.11 History of left total knee replacement 4512874946 951739 Z96.671 [id number] YUNG Zhou 3rd floor [address] [facility] [place] [address] 03/11/2024 14:37:20 04/04/2024 15:20:47 History of left total knee replacement 9932285471 249161 Z96.652 Pain of le ft knee joint 0147264241 64320 M25.562 Patient has chronic and persistent left [...] Pes anseri nus bursitis of left knee 0611858334 190689 M70.52 [id number] YUNG [facility] [address] [place] [address] 03/16/2024 10:23:08 04/07/2024 10:38:32 Pain of left knee joint 0781498028 59638 M25.665 [id number] MD Bhupendra Starks Clinical [address] [place] [address] 04/02/2024 15:31:24 05/01/2024 15:31:11 Soft tissue swelling of knee joint 991415137 M25.469 Pes anseri nus bursitis of left knee 9682762852 683254 M70.52 [id number] NENO Dominguez PT [address] [place] [address] 04/16/2024 13:53:59 04/16/2024 14:58:02 Soft tissue swelling of knee joint 068050344 M25.183 [id number] EFFIE Huddlestonon PT [address] [place] [address] 04/22/2024 13:26:44 04/22/2024 15:30:11 Soft tissue swelling of knee joint 652823516 M25.366 [id number] Juve Fernandez, [employer] [facility] [address] [place] [place] [address] 04/27/2024 13:01:12 04/27/2024 14:02:18 Soft tissue swelling of knee joint 848316497 M25.801 [id number] Brooke Varghese, DPT [facility] [address] [place] [place] [address] 05/04/2024 12:37:55 05/04/2024 14:15:39 Soft tissue swelling of knee joint 348503519 M25.996 [id number] YUNG Tang 2nd floor [address] [facility] [place] [address] 05/06/2024 10:42:34 05/25/2024 15:42:16 Pain of left knee joint 5047419436 30410 M25.562 Osteoarthr itis of right knee joint 5689084497 40934 M17.11 [id number] YUNG Tang [facility] [address] [place] [place] [address] 08/03/2024 10:04:57 08/26/2024 11:02:36 Osteoarthritis of right knee joint 3310664053 74186 M17.11 [id number] YUNG Tang [facility] [address] [place] [place] [address] 11/04/2024 09:56:12 11/17/2024 08:35:36 Osteoarthritis of right knee joint 7971127053 91341 M17.11 [id number] YUNG Tang [facility] [address] [place] [address] 02/03/2025 10:53:30 02/16/2025 10:52:11 Osteoarthritis of right knee joint 4622466852 36434 M17.11 [id number] YUNG Tang [facility] [address] [place] [place] [address] 05/19/2025 10:49:09 05/25/2025 15:53:08 Osteoarthritis of right knee joint 8383327600 05239 M17.11 [id number] YUNG Tang Clinical [address] [place] [address] 08/16/2025 10:23:25 08/23/2025 14:49:21 Osteoarthritis of right knee joint 2879833072 80757 M17.11 [id number] Health Concerns Section Related Observation LastModified by Organization Detai ls LastModified Time None Recorded Concern Status LastModified by Organization Details LastModified Time None Recorded Advance Directives Directive None Recorded Payers Insurance Date Sequence Insurance Name Policy Number Policy Posada Covered Member ID Posada Member ID Guarantor Name 08/16/2025 1 [place]ICARE [place]: [employer] Juliette A Campoverde [id number] Juliette A Campoverde 08/23/2025 2 [employer] (MEDICARE SUPPLEMENT) Juliette A Campoverde [id number] Juliette A Campoverde Notes Date Note Type Note Provider Name and Address Organization Details Recorded Time 08/03/2024 text/html I am seeing the patient today under the supervision of who was available but who did not see the patient. Chief Complaint The patient presents today for recheck of right knee osteoarthritis. Is known to have knee arthritis treated conservatively to this point with 3 months relief of symptoms. Presents today for recheck secondary to increased knee pain. Past Medical/Surgical History Reviewed today, otherwise unchanged per intake sheet. Physical Findings General Appearance: Well developed. In no acute distress. Musculoskeletal System: Knee: General/bilateral: No laxity of the knee. Right Knee: Medial aspect was tender on palpation. No erythema. No warmth. Left Knee: Medial aspect was tender on palpation. No erythema. No warmth. Musculoskeletal Scales: General/bilateral: Mild effusion noted. Neurological: Oriented to time, place, and person. Gait And Stance: Normal. Psychiatric: Mood was appropriate to the affect. Left knee 0-120 degrees of flexion with discomfort. Assessment Osteoarthritis of knee - Plan More than [...] continued conservative treatment. Rene Polanco PA-C [address], [place], [address], [facility] 08/03/2024 12:19:17 11/04/2024 text/html I am seeing the patient today under the supervision of who was available but who did not see the patient. Chief Complaint The patient presents today for recheck of right knee osteoarthritis. Is known to have knee arthritis treated conservatively to this point with 3 months relief of symptoms. Presents today for recheck secondary to increased knee pain. Past Medical/Surgical History Reviewed today, otherwise unchanged per intake sheet. Physical Findings General Appearance: Well developed. In no acute distress. Musculoskeletal System: Knee: General/bilateral: No laxity of the knee. Right Knee: Medial aspect was tender on palpation. No erythema. No warmth. Left Knee: Medial aspect was tender on palpation. No erythema. No warmth. Musculoskeletal Scales: General/bilateral: Mild effusion noted. Neurological: Oriented to time, place, and person. Gait And Stance: Normal. Psychiatric: Mood was appropriate to the affect. Left knee 0-120 degrees of flexion with discomfort. Assessment Osteoarthritis of knee - Plan More than [...] continued conservative treatment. Rene Polanco PA-C [address], [place], [address], [facility] 11/04/2024 12:20:59 02/03/2025 text/html I am seeing the patient today under the supervision of who was available but who did not see the patient. Chief Complaint The patient presents today for recheck of right knee osteoarthritis. Is known to have knee arthritis treated conservatively to this point with 3 months relief of symptoms. Presents today for recheck secondary to increased knee pain. Past Medical/Surgical History Reviewed today, otherwise unchanged per intake sheet. Physical Findings General Appearance: Well developed. In no acute distress. Musculoskeletal System: Knee: General/bilateral: No laxity of the knee. Right Knee: Medial aspect was tender on palpation. No erythema. No warmth. Left Knee: Medial aspect was tender on palpation. No erythema. No warmth. Musculoskeletal Scales: General/bilateral: Mild effusion noted. Neurological: Oriented to time, place, and person. Gait And Stance: Normal. Psychiatric: Mood was appropriate to the affect. Left knee 0-120 degrees of flexion with discomfort. Assessment Osteoarthritis of knee - Plan More than [...] continued conservative treatment. Rene Polanco PA-C [address] [facility], [place], [address], [facility] 02/04/2025 08:23:15 05/19/2025 text/html I am seeing the patient today under the supervision of who was available but who did not see the patient. Chief Complaint The patient presents today for recheck of right knee osteoarthritis. Is known to have knee arthritis treated conservatively to this point with 3 months relief of symptoms. Presents today for recheck secondary to increased knee pain. Past Medical/Surgical History Reviewed today, otherwise unchanged per intake sheet. Physical Findings General Appearance: Well developed. In no acute distress. Musculoskeletal System: Knee: General/bilateral: No laxity of the knee. Right Knee: Medial aspect was tender on palpation. No erythema. No warmth. Left Knee: Medial aspect was tender on palpation. No erythema. No warmth. Musculoskeletal Scales: General/bilateral: Mild effusion noted. Neurological: Oriented to time, place, and person. Gait And Stance: Normal. Psychiatric: Mood was appropriate to the affect. Left knee 0-120 degrees of flexion with discomfort. Assessment Osteoarthritis of knee - Plan More than [...] continued conservative treatment. Rene Polanco PA-C [address], [place], [address], [facility] 05/19/2025 12:16:22 08/16/2025 text/html I am seeing the patient today under the supervision of who was available but who did not see the patient. Chief Complaint The patient presents today for recheck of right knee osteoarthritis. Is known to have knee arthritis treated conservatively to this point with 3 months relief of symptoms. Presents today for recheck secondary to increased knee pain. Past Medical/Surgical History Reviewed today, otherwise unchanged per intake sheet. Physical Findings General Appearance: Well developed. In no acute distress. Musculoskeletal System: Knee: General/bilateral: No laxity of the knee. Right Knee: Medial aspect was tender on palpation. No erythema. No warmth. Left Knee: Medial aspect was tender on palpation. No erythema. No warmth. Musculoskeletal Scales: General/bilateral: Mild effusion noted. Neurological: Oriented to time, place, and person. Gait And Stance: Normal. Psychiatric: Mood was appropriate to the affect. Left knee 0-120 degrees of flexion with discomfort. Assessment Osteoarthritis of knee - Plan More than [...] continued conservative treatment. Rene Polanco PA-C [address], [place], [address], [facility] 08/17/2025 07:45:56 OBGyn Episode No OBEpisode recorded.
== END 2025-08-24 11:21 | disposition home or self-care (01) ==
LOC: HO.HKAS 10:52
PROVIDERS: PCP Hospitalist; Visit Provider Internal Medicine Nephrology
DX: N18.31 Chronic kidney disease, stage 3a (principal); I10 Essential (primary) hypertension
CPT/HCPCS: 99214

== ENCOUNTER → 2025-08-24 10:51 | Outpatient (BNVA) | payer MEDICARE, SELFPAY | PROVIDERS: PCP Hospitalist; Visit Provider Internal Medicine Nephrology | DX: I12.9 Hypertensive chronic kidney disease with stage 1 through stage 4 chronic kidney disease, or unspecified chronic kidney disease (principal); N18.31 Chronic kidney disease, stage 3a | CPT/HCPCS: 99212 ==